=== PATIENT | male | born 1945 | race Caucasian/White ===

== ENCOUNTER → 2017-10-23 | Day surgery (SDC) | payer MEDICARE ==
[~2017-10-23] MED LIST: ALLOPURINOL300 MG PO; APRISO0.375 GM PO; ASPIRIN81 MG PO; CETIRIZINE HCL10 MG PO; COQ-1030 MG; FENTANYL CITRATE/PF 100MCG/2 ML INJ ONE; FEXOFENADINE H180 MG PO; FINASTERIDE5 MG PO; FLUTICASONE PRO16 GM; GLIPIZIDE ER5 MG PO; HYDROCHLOROTHIA25 MG PO; KLOR-CON 1010 MEQ PO; LANTUS100 UNITS/ SQ; LIALDA1.2 GM; LOSARTAN POTAS100 MG PO; LOVASTATIN20 MG PO; METOPROLOL TART25 MG PO; MIDAZOLAM HCL 2 MG/2 ML VIAL ONE; MINOXIDIL2.5 MG PO; MULTIVITAMINS1 EAC7; NORVASC5 MG PO; OMEGA-31000 MG; OR PHACO EYE KIT ONE; PLAVIX75 MG PO; PREOP PHACO EYE KIT ONE; TAMSULOSIN HCL0.4 MG PO
== END | disposition home or self-care (01) ==
LOC: OR 12:03
PROVIDERS: ATTEND Ophthalmology
DX: H25.12 Age-related nuclear cataract, left eye (principal); E11.9 Type 2 diabetes mellitus without complications; I25.10 Atherosclerotic heart disease of native coronary artery without angina pectoris; I10 Essential (primary) hypertension; M10.9 Gout, unspecified; E78.5 Hyperlipidemia, unspecified; G47.33 Obstructive sleep apnea (adult) (pediatric); K21.9 Gastro-esophageal reflux disease without esophagitis; N20.0 Calculus of kidney; Z79.4 Long term (current) use of insulin; Z79.82 Long term (current) use of aspirin; Z95.5 Presence of coronary angioplasty implant and graft; Z86.73 Personal history of transient ischemic attack (TIA), and cerebral infarction without residual deficits; Z87.891 Personal history of nicotine dependence
CPT/HCPCS: 36415; 66984; 82948; J2250; V2632

== ENCOUNTER 2018-08-21 11:28 | Outpatient (RCR) | payer MEDICARE ==
[~2018-08-21 11:28] MED LIST changes: +COLLAGENASE OINTMENT 30 GM TUBE ONE; -FENTANYL CITRATE/PF 100MCG/2 ML INJ ONE; +LIDOCAINE/PRILOCAINE 2.5-2.5% KIT ONE; -MIDAZOLAM HCL 2 MG/2 ML VIAL ONE; +MUPIROCIN 2% OINT 22 GM TUBE ONE; -OR PHACO EYE KIT ONE; -PREOP PHACO EYE KIT ONE
[2018-08-21] MEDS ORDERED: COLLAGENASE OINTMENT 30 GM TUBE ONE (16:39)
[2018-08-21] MEDS ORDERED: LIDOCAINE/PRILOCAINE 2.5-2.5% KIT ONE (16:39)
[2018-08-21] MEDS ORDERED: MUPIROCIN 2% OINT 22 GM TUBE ONE (16:39)
[2018-09-04] MEDS ORDERED: TAMSULOSIN HCL0.4 MG PO (16:06)
[2018-09-04] MEDS ORDERED: NAPROXEN250 MG PO (16:06)
[2018-09-04] MEDS ORDERED: ULTRAM50 MG PO (16:07)
[2018-09-04] MEDS ORDERED: CLINDAMYCIN HC150 MG PO (16:07)
[2018-09-06] MEDS ORDERED: TYLENOL #4 PO (05:34)
== END 2018-09-02 ==
LOC: WCC 11:28
PROVIDERS: ATTEND Family Medicine
DX: E11.8 Type 2 diabetes mellitus with unspecified complications (principal); S81.801A Unspecified open wound, right lower leg, initial encounter; I63.30 Cerebral infarction due to thrombosis of unspecified cerebral artery; I87.2 Venous insufficiency (chronic) (peripheral); M10.9 Gout, unspecified; I10 Essential (primary) hypertension; K51.019 Ulcerative (chronic) pancolitis with unspecified complications; E78.5 Hyperlipidemia, unspecified; I25.84 Coronary atherosclerosis due to calcified coronary lesion; W45.8XXA Other foreign body or object entering through skin, initial encounter
CPT/HCPCS: 36415; 82948; 87071; 87075; 87205

== ENCOUNTER → 2018-09-06 | Day surgery (SDC) | payer MEDICARE ==
[2018-09-04 16:25] LABS: BASOPHILS % 0.6 % (0.0-1.0); EOSINOPHILS # (AUTO) 0.2 (0.0-0.4); EOSINOPHILS % 2.6 % (0.0-6.0); HEMATOCRIT 44.5 % (38.2-49.6); HEMOGLOBIN 15.2 g/dL (14.0-18.0); LYMPHOCYTES # (AUTO) 1.6 (1.0-3.2); LYMPHOCYTES % 23.1 % (18.0-39.1); MEAN CORPUSCULAR HEMOGLOBIN 30.3 pg (28-32); MEAN CORPUSCULAR HGB CONC 34.2 g/dL (31-35); MEAN CORPUSCULAR VOLUME 88.6 fL (81-99); MONOCYTES # (AUTO) 0.7 (0.2-0.8); MONOCYTES % 10.4 % (4.4-11.3); NEUTROPHILS # (AUTO) 4.3 (2.1-6.9); PLATELET COUNT 204 x10e3/uL (140-360); RED BLOOD COUNT 5.02 x10e6/uL (4.3-5.7); RED CELL DISTRIBUTION WIDTH 13.4 % (11.7-14.4)
--- NOTE | 2018-09-04 16:28 | Diagnostic Imaging Report ---
EXAMINATION: CHEST 2 VIEWS INDICATION: ^PREOP COMPARISON: None FINDINGS: PA and lateral views TUBES and LINES: None. LUNGS: Low lung volumes. Mild left basilar hazy opacification. PLEURA: No pleural effusion or pneumothorax. HEART AND MEDIASTINUM: The cardiomediastinal silhouette is unremarkable. BONES AND SOFT TISSUES: No acute osseous lesion. Soft tissues are unremarkable. UPPER ABDOMEN: No free air under the diaphragm. IMPRESSION: Mild left basilar hazy opacification, likely subsegmental atelectasis. Signed by: Dr. Eddy Xie MD on 09/04/2018 4:25 PM
[2018-09-04 16:40] LABS: ANION GAP 12.4 mmol/L (8-16); BLOOD UREA NITROGEN 21 mg/dL (7-26); BUN/CREATININE RATIO 23 (6-25); CALCIUM 9.4 mg/dL (8.4-10.2); CARBON DIOXIDE 31 mmol/L (22-29); CHLORIDE 100 mmol/L (98-107); CREATININE, SERUM 0.93 mg/dL (0.72-1.25); EST GLOMERULAR FILTRATION RATE > 60 ML/MIN (60-); GLUCOSE 220 mg/dL (74-118); POTASSIUM 4.4 mmol/L (3.5-5.1); SODIUM 139 mmol/L (136-145)
[~2018-09-06] MED LIST changes: +BACITRACIN 50,000 UNIT VIAL ONE; +BUPIVACAINE HCL 0.5% 10ML MPF VIAL INJ ONE; +CLINDAMYCIN HC150 MG PO; +CLINDAMYCIN PHOS 900MG/ 50ML 50 ML IV ONE; -COLLAGENASE OINTMENT 30 GM TUBE ONE; +DEXAMETHASONE SOD PHOS INJ 4 MG/ML VIAL ONE; +FENTANYL CITRATE/PF 100MCG/2 ML INJ ONE; +KETOROLAC TROMETHAMINE 30 MG/ML VIAL ONE; +LIDOCAINE HCL 2% LOCAL INJ 5 ML SDV VIAL INJ ONE; -LIDOCAINE/PRILOCAINE 2.5-2.5% KIT ONE; -MUPIROCIN 2% OINT 22 GM TUBE ONE; +NAPROXEN250 MG PO; +ONDANSETRON HCL INJ 2 MG/ML VIAL ONE; +PROPOFOL IV EMULSION 10 MG/ML 20 ML VIAL ONE; +SEVOFLURANE INHAL SOLN 250 ML PEN BTL ONE; +SILVER SULFADIAZINE 50GM CREAM TOP ONE; +SUCCINYLCHOLINE 200 MG/10 ML SYR ONE; +TYLENOL #4 PO; +ULTRAM50 MG PO
--- OUTSIDE RECORDS SUMMARY | 2018-09-06 05:15 | XMS REPORT | Summary of Care ---
Author Author [facility] Organization [facility] Address Unknown Phone Unavailable Encounter HQ Peter_mari(FIN) [id number] Date(s): 11/20/16 - 11/20/16 [facility] [address] [place] [address]- [phone] Discharge Disposition: Home or Self Care Attending Physician: Courtney Simpson MD Referring Physician: Courtney Simpson MD Vital Signs No data available for this section Problem List No data available for this section Allergies, Adverse Reactions, Alerts Substance Reaction Severity Status atorvastatin Active pioglitazone Active rosuvastatin Active Medications No data available for this section Results No data available for this section Immunizations No data available for this section Procedures Procedure Date Related Diagnosis Body Site Stent placement Social History Social History Type Response Smoking Status Former smoker; Type: Cigarettes; Exposure to Tobacco Smoke None; Cigarette Smoking Last 365 Days No; Reg Smoking Cessation Counseling No Assessment and Plan No data available for this section
--- OUTSIDE RECORDS SUMMARY | 2018-09-06 05:15 | XMS REPORT | Summary of Care ---
Author Author [facility] Organization [facility] Address Unknown Phone Unavailable Encounter TUNED Crawley(FRANCISCO) [id number] Date(s): 10/24/16 - 10/24/16 [facility] [address] [place] [address]- [phone] Discharge Disposition: Home or Self Care Attending Physician: Daniel Vila MD Referring Physician: Daniel Vila MD Vital Signs No data available for this section Problem List No data available for this section Allergies, Adverse Reactions, Alerts Substance Reaction Severity Status atorvastatin Active pioglitazone Active rosuvastatin Active Medications Omnipaque 300 15 mL, Route: MISC, Drug Form: SOLN, ONCE, Start date: 10/24/16 10:01:00 TRUST ADMINISTRATOR, St op date: 10/24/16 10:01:00 TRUST ADMINISTRATOR Notes: (Same as:Omnipaque 300).WASTE: F/P - Black; E - Municipal Trash Bin Start Date: 10/24/16 Stop Date: 10/24/16 Status: Completed Results No data available for this section Immunizations No data available for this section Procedures No data available for this section Social History No data available for this section Assessment and Plan No data available for this section
--- OUTSIDE RECORDS SUMMARY | 2018-09-06 05:15 | XMS REPORT | Continuity of Care Document ---
Author Author [facility] Interface Address Unknown Phone Unavailable Problems Problem Status Onset Date Classification Date Reported Comments Source UNK Active 12/05/2016 [facility] LYMPHOMA Active 12/02/2016 [facility] DX; M81.0=AGE-RELATED OSTEOPOROSIS WITHO Active 11/16/2016 [facility] M47.26 Active 10/16/2016 [facility] CAD (<span ID="[id number]">Confirmed</span>) Resolved Problem 03/09/2018 [facility] Ulcerative colitis Active Problem 03/09/2018 [facility] Diabetes Active Problem 03/09/2018 [facility] Gout Resolved Problem 03/09/2018 [facility] Hypertension Active Problem 03/09/2018 [facility] Lymphoma Active Problem 03/09/2018 [facility] BPH (<span ID="[id number]">Confirmed</span>) Active Problem 03/09/2018 [facility] Sleep apnea Active Problem 03/09/2018 [facility] TIA (<span ID="[id number]">Confirmed</span>) Resolved Problem 03/09/2018 [facility] 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, lumbar region 12/23/2016 [facility] OTHER SPONDYLOSIS WITH RADICULOPATHY, LORENA Active [facility] AGE-RELATED OSTEOPOROSIS W/O CURRENT PAT Active [facility] SPONDYLOSIS W/O MYELOPATHY OR RADICULOPA Active [facility] RADICULOPATHY, LUMBAR REGION Active [facility] Medications Medication Details Route Status Patient Instructions Ordering Provider Order Date Source Dulcolax Laxative 10 mg, 2 tab, Route: PO, Drug form: ECTAB, Daily, Dosing Weight 97.864, kg, Start date: 12/20/16 9:00:00 CDT, Duration: 30 day, Stop date: 01/18/17 9:00:00 CDTNotes: (Same As: Dulcolax, Correctol) (Do Not Crush) "Do Not Crush" Inactive 12/20/2016 [facility] Lactulose 667 MG/ML Oral Solution 20 gm, 30 ml, Route: PO, Drug form: SYRP, ONCE, Dosing Weight 97.864, kg, Start date: 12/19/16 13:00:00 CDT, Stop date: 12/19/16 13:00:00 CDTNotes: (Same as:Chronulac) Inactive 12/19/2016 [facility] Keflex 500 mg, 2 cap, Route: PO, Drug form: CAP, [id number], Dosing Weight 97.864, kg, Start date: 12/18/16 8:00:00 CDT, Duration: 14 day, Stop date: 12/31/16 20:00:00 CDTNotes: Take on empty stomach. (Same As: Keflex) No Longer Active 12/18/2016 [facility] hydrocortisone acetate 25 MG Rectal Suppository [Anusol HC] 25 mg, 1 supp, Route: ME, BID, Drug form: SUPP, Start date: 12/17/16 17:00:00 CDT, Duration: 30 day, Stop date: 01/16/17 9:00:00 CDTNotes: (Same as: Anusol- HC, Hemorrhoidal HC) No Longer Active 12/17/2016 [facility] Metformin 500 mg, PO, Dinner, 0 Refill(s) Active 12/17/2016 [facility] Lialda 2.4 gm, Route: PO, Drug form: ECTAB, Daily, Dosing Weight 97.864, kg, Start date: 12/17/16 9:00:00 CDT, Duration: 30 day, Stop date: 01/15/17 9:00:00 CDT No Longer Active 12/17/2016 [facility] RN Please bring home med FLUTICASONE & LIALDA to Pharmacy RN Please bring home med FLUTICASONE & LIALDA to Pharmacy, 1, Drug form: MISC, Route: MISC, TID, 12/16/16 20:00:00 CDT, Duration: 30 day, Stop date: 01/15/17 15:00:00 CDT No Longer Active 12/17/2016 [facility] magnesium citrate 58.2 MG/ML Oral Solution 150 ml, Route: PO, Drug Form: LIQ, Dosing Weight 97.864, kg, ONCE, Start date: 12/16/16 14:50:00 CDT, Stop date: 12/16/16 14:50:00 CDTNotes: (Same as: Citrate of Magnesia) Concentration: 1.745 gm / 30 mL Inactive 12/16/2016 [facility] Citrate of Magnesia 300 ml, Route: PO, Drug Form: LIQ, Dosing Weight 97.869, kg, ONCE, PRN Constipation, Start date: 12/15/16 11:14:00 CDTNotes: (Same as: Citrate of Magnesia) Concentration: 1.745 gm / 30 mL Inactive 12/15/2016 [facility] Acetaminophen 300 MG / Codeine Phosphate 60 MG Oral Tablet [Tylenol with Codeine #4] 1 tab, Route: PO, Drug Form: TAB, Dosing Weight 97.864, kg, Q4H, PRN Pain Score 4-6, Start date: 12/15/16 10:35:00 CDT, Duration: 30 day, Stop date: 01/14/17 10:34:00 CDT, Pain Score 4-7Notes: Do not exceed 4gm/day of acetaminophen. (Same as: Tylenol with Codeine # 4) No Longer Active 12/15/2016 [facility] tramadol hydrochloride 50 MG Oral Tablet 50 mg, 1 tab, Route: PO, Drug form: TAB, Q6H, Dosing Weight 97.864, kg, PRN Pain Score 1-3, Start date: 12/15/16 10:31:00 CDT, Duration: 30 day, Stop date: 01/14/17 10:30:00 CDTNotes: Not to exceed 400mg/day. (Same As: Ultram) No Longer Active 12/15/2016 [facility] Morphine 2 mg, 1 mL, Route: IVP, Drug form: INJ, Q6H, Dosing Weight 97.864, kg, PRN Pain Score 7-10, Start date: 12/15/16 10:31:00 CDT, Duration: 30 day, Stop date: 01/14/17 10:30:00 CDTNotes: (Same as:MORPhine Sulfate) No Longer Active 12/15/2016 [facility] Albuterol 0.833 MG/ML / Ipratropium [place] 0.167 MG/ML Inhalant Solution [DuoNeb] 3 ml, Route: NEB, Drug Form: SOLN, Dosing Weight 97.864, kg, PRN, PRN Respiratory Protocol, Start date: 12/15/16 10:30:00 CDT, Duration: 30 day, Stop date: 01/14/17 10:29:00 CDTNotes: (Same as: Duoneb) No Longer Active 12/15/2016 [facility] Morphine 15 mg, 1 tab, Route: PO, Drug form: TAB, Q4H, Dosing Weight 97.864, kg, PRN Other -See Comment, Start date: 12/14/16 13:16:00 CDT, Duration: 30 day, Stop date: 01/13/17 13:15:00 CDT, Pain Score 4-8Notes: (Same as:MORPhine Sulfate) No Longer Active 12/14/2016 [facility] Morphine 4 mg, 1 mL, Route: IVP, Drug form: SOLN, Q4H, Dosing Weight 97.864, kg, PRN Pain Score 6-10, Start date: 12/14/16 13:15:00 CDT, Duration: 30 day, Stop date: 01/13/17 13:14:00 CDTNotes: (Same as:MORPhine Sulfate) No Longer Active 12/14/2016 [facility] cyclobenzaprine 10 mg, 1 tab, Route: PO, Drug form: TAB, TID, Dosing Weight 97.864, kg, PRN Spasm, Start date: 12/14/16 12:59:00 CDT, Duration: 30 day, Stop date: 01/13/17 12:58:00 CDTNotes: (Same As: Flexeril) No Longer Active 12/14/2016 [facility] Acetaminophen 300 MG / Codeine Phosphate 30 MG Oral Tablet 1 tab, Route: PO, Dosing Weight 97.864, kg, Q4H, PRN Pain Score 4-6, Start date: 12/14/16 12:58:00 CDT, Duration: 30 day, Stop date: 01/13/17 12:57:00 CDT Inactive 12/14/2016 [facility] Acetaminophen 325 MG / Hydrocodone Bitartrate 10 MG Oral Tablet [[place] 10/325] 2 tab, Route: PO, Drug Form: TAB, Dosing Weight 97.864, kg, Q6H, PRN Pain Score 7-10, Start date: 12/14/16 12:38:00 CDT, Duration: 30 day, Stop date: 01/13/17 12:37:00 CDTNotes: Do not exceed 4gm/day of acetaminophen. (Same as: [place] 325/10) Inactive 12/14/2016 [facility] Morphine 4 mg, 1 mL, Route: IVP, Drug form: SOLN, Q3H, Dosing Weight 97.864, kg, PRN Pain Score 6-10, Start date: 12/14/16 12:37:00 CDT, Duration: 30 day, Stop date: 01/13/17 12:36:00 CDTNotes: (Same as:MORPhine Sulfate) Inactive 12/14/2016 [facility] Dextrose 50% Syringe 25 gm, 50 mL, Route: IVP, Drug Form: INJ, Dosing Weight 97.864, kg, PRN, PRN Blood Glucose Results, Start date: 12/14/16 11:46:00 CDT, Duration: 30 day, Stop date: 01/13/17 11:45:00 CDT No Longer Active 12/14/2016 [facility] Glucagon 1 mg, Route: IM, Drug form: PDR/INJ, PRN, Dosing Weight 97.864, kg, PRN Blood Glucose Results, Start date: 12/14/16 11:46:00 CDT, Duration: 30 day, Stop date: 01/13/17 11:45:00 CDT No Longer Active 12/14/2016 [facility] Insulin, Aspart, Human 10 unit, 0.1 mL, Route: SUB-Q, Drug form: SOLN, TID-Before Meals, Dosing Weight 97.864, kg, PRN Blood Glucose Results, Start date: 12/14/16 11:46:00 CDT, Duration: 30 day, Stop date: 01/13/17 11:45:00 CDTNotes: Roll in palms of hands gently; Do not shake vigorously. (Same as: NovoLOG) "single patient use only" WASTE: F/P - Black; E - Municipal Trash Bin Stable for 28 days at room temperature. Expires in days from Date No Longer Active 12/14/2016 [facility] Senokot 17.2 mg, 2 tab, Route: PO, Drug Form: TAB, Dosing Weight 97.869, kg, Daily, Start date: 12/14/16 9:00:00 CDT, Duration: 30 day, Stop date: 01/12/17 9:00:00 CDTNotes: (Same as: Senokot) No Longer Active 12/14/2016 [facility] Docusate Sodium 100 MG Oral Capsule [Colace] 100 mg, 1 cap, Route: PO, Drug form: CAP, BID, Dosing Weight 97.869, kg, Start date: 12/14/16 9:00:00 CDT, Duration: 30 day, Stop date: 01/12/17 17:00:00 CDTNotes: (Same as: Colace) (Do Not Crush) No Longer Active 12/14/2016 [facility] Fluticasone propionate 0.05 MG/ACTUAT Dry Powder Inhaler 50 microgram, Route: INHALATION, Drug Form: PWDR, Dosing Weight 97.869, kg, Daily, Start date: 12/14/16 9:00:00 CDT, Duration: 30 day, Stop date: 01/12/17 9:00:00 CDT No Longer Active 12/14/2016 [facility] Finasteride 5 mg, 1 tab, Route: PO, Drug form: TAB, Bedtime, Dosing Weight 97.869, kg, Start date: 12/14/16 9:00:00 CDT, Stop date: 01/12/17 21:00:00 CDTNotes: blets No Longer Active 12/14/2016 [facility] 24 HR Metoprolol Tartrate 25 MG Extended Release Tablet [Toprol] 25 mg, 1 tab, Route: PO, Drug form: ERTAB, Daily, Start date: 12/14/16 9:00:00 CDT, Duration: 30 day, Stop date: 01/12/17 9:00:00 CDTNotes: (Same as: Toprol XL) Do Not Crush No Longer Active 12/14/2016 [facility] Flomax 0.4 mg, 1 cap, Route: PO, Drug form: CAP, Daily, Dosing Weight 97.869, kg, Start date: 12/14/16 9:00:00 CDT, Duration: 30 day, Stop date: 01/12/17 9:00:00 CDTNotes: (Same As: Flomax) "Do Not Crush" No Longer Active 12/14/2016 [facility] 24 HR Nifedipine 90 MG Extended Release Tablet 90 mg, 1 tab, Route: PO, Drug form: ERTAB, Daily, Dosing Weight 97.869, kg, Start date: 12/14/16 9:00:00 CDT, Duration: 30 day, Stop date: 01/12/17 9:00:00 CDTNotes: (Same as: Adalat CC,Procardia XL) "Do Not Crush" "Avoid grapefruit and grapefruit juice" No Longer Active 12/14/2016 [facility] Losartan 100 mg, 2 tab, Route: PO, Drug form: TAB, Bedtime, Dosing Weight 97.869, kg, Start date: 12/14/16 9:00:00 CDT, Stop date: 01/12/17 21:00:00 CDTNotes: (Same as: Cozaar) No Longer Active 12/14/2016 [facility] gabapentin 100 MG Oral Capsule [Neurontin] 100 mg, 1 cap, Route: PO, Drug form: CAP, TID, Dosing Weight 97.869, kg, Start date: 12/14/16 9:00:00 CDT, Duration: 30 day, Stop date: 01/12/17 17:00:00 CDTNotes: (Same as: Neurontin) No Longer Active 12/14/2016 [facility] heparin sodium, porcine 2500 UNT/ML Injectable Solution 5,000 unit, 1 mL, Route: SUB-Q, Drug form: INJ, Q12H, Dosing Weight 97.869, kg, Start date: 12/14/16 8:00:00 CDT, Duration: 30 day, Stop date: 01/12/17 20:00:00 CDTNotes: porcine heparin No Longer Active 12/14/2016 [facility] Glipizide 10 MG Oral Tablet 10 mg, 1 tab, Route: PO, Drug form: TAB, Before Breakfast, Dosing Weight 97.869, kg, Start date: 12/14/16 7:30:00 CDT, Duration: 30 day, Stop date: 01/12/17 7:30:00 CDTNotes: (Same as: Glucotrol) 30 min before meals. No Longer Active 12/14/2016 [facility] Cefazolin 1 gm, 100 mL, Route: IVPB, Drug form: INJ, ABXQ8H, Dosing Weight 97.869, kg, Start date: 12/14/16 3:00:00 CDT, Duration: 3 doses or times, Stop date: 12/14/16 19:00:00 CDT Inactive 12/14/2016 [facility] Morphine 1 mg, 0.5 mL, Route: IVP, Drug form: INJ, Q2H, Dosing Weight 97.869, kg, PRN Pain Score 4-6, Start date: 12/13/16 22:44:00 CDT, Duration: 30 day, Stop date: 01/12/17 22:43:00 CDTNotes: (Same as:MORPhine Sulfate) No Longer Active 12/14/2016 [facility] Morphine 2 mg, 1 mL, Route: IVP, Drug form: INJ, Q2H, Dosing Weight 97.869, kg, PRN Pain Score 7-10, Start date: 12/13/16 22:43:00 CDT, Duration: 30 day, Stop date: 01/12/17 22:42:00 CDTNotes: (Same as:MORPhine Sulfate) No Longer Active 12/14/2016 [facility] insulin detemir 22 unit, 0.22 mL, Route: SUB-Q, Drug form: SOLN, Bedtime, Start date: 12/13/16 22:00:00 CDT, Duration: 30 day, Stop date: 01/12/17 21:00:00 CDTNotes: Same as Levemir Do not hold insulin without contacti prescriber WASTE: F/P - Black; E - Municipal Trash Bin "single patient use only" No Longer Active 12/14/2016 [facility] Famotidine 20 MG Oral Tablet [Pepcid] 20 mg, 1 tab, Route: PO, Drug form: TAB, Q12H, Dosing Weight 97.869, kg, Start date: 12/13/16 21:00:00 CDT, Duration: 30 day, Stop date: 01/12/17 9:00:00 CDTNotes: (Same as: Pepcid) No Longer Active 12/14/2016 [facility] Insulin Glargine 100 UNT/ML Injectable Solution [Lantus] 22 unit, Route: SUB-Q, Drug form: SOLN, Bedtime, Dosing Weight 97.869, kg, Start date: 12/13/16 21:00:00 CDT, Duration: 30 day, Stop date: 01/11/17 21:00:00 CDT Inactive 12/14/2016 [facility] glycopyrrolate (ANES) Route: IV, Drug form: INJ, ONCE, Stop date: 12/13/16 20:42:00 CDT Inactive 12/14/2016 [facility] neostigmine (ANES) Route: IV, Drug form: INJ, ONCE, Stop date: 12/13/16 20:42:00 CDT Inactive 12/14/2016 [facility] magnesium citrate 300 ml, Route: PO, Drug Form: LIQ, Dosing Weight 97.869, kg, ONCE, PRN Constipation, Start date: 12/13/16 20:33:00 CDTNotes: (Same as: Citrate of Magnesia) Concentration: 1.745 gm / 30 mL No Longer Active 12/14/2016 [facility] Zofran 4 mg, 2 mL, Route: IV, Drug form: INJ, Q8H, Dosing Weight 97.869, kg, PRN Nausea, Start date: 12/13/16 20:33:00 CDT, Duration: 30 day, Stop date: 01/12/17 20:32:00 CDTNotes: (Same as: Zofran) MEDICATION WASTE Product Size: 4 mg Product Wasted: ___ mg No Longer Active 12/14/2016 [facility] Acetaminophen 325 MG / Hydrocodone Bitartrate 5 MG Oral Tablet 2 tab, Route: PO, Drug Form: TAB, Dosing Weight 97.869, kg, Q4H, PRN Pain Score 7-10, Start date: 12/13/16 20:33:00 CDT, Stop date: 01/12/17 20:32:00 CDTNotes: (Same as: [place] 325/5) Do not exceed 4gm/day of acetaminophen. No Longer Active 12/14/2016 [facility] Sodium Chloride 0.154 MEQ/ML Injectable Solution 1,000 mL, Rate: 75 ml/hr, Infuse over: 13.3 hr, Route: IV, Dosing Weight 97.869 kg, Total Volume: 1,000, Start date: 12/13/16 20:33:00 CDT, Duration: 30 day, Stop date: 01/12/17 20:32:00 CDT No Longer Active 12/14/2016 [facility] Tylenol 650 mg, 2 tab, Route: PO, Drug form: TAB, Q4H, Dosing Weight 97.869, kg, PRN Pain 1-3/Temp > 100.4 F, Start date: 12/13/16 20:33:00 CDT, Duration: 30 day, Stop date: 01/12/17 20:32:00 CDTNotes: Do not exceed 4 gm/day. (Same as: Tylenol) No Longer Active 12/14/2016 [facility] Dilaudid 1 mg, 1 mL, Route: IV, Drug form: INJ, Q3H, Dosing Weight 97.869, kg, PRN Pain Score 7-10, Start date: 12/13/16 20:33:00 CDT, Duration: 30 day, Stop date: 01/12/17 20:32:00 CDT Inactive 12/14/2016 [facility] ondansetron (ANES) Route: IV, Drug form: INJ, ONCE, Stop date: 12/13/16 20:20:00 CDT Inactive 12/14/2016 [facility] ceFAZolin (ANES) Route: IV, Drug form: INJ, ONCE, Stop date: 12/13/16 19:40:00 CDT Inactive 12/14/2016 [facility] acetaminophen (ANES) (ANES) Route: IV, Drug form: INJ, Start date: 12/13/16 17:20:00 CDT, Stop date: 12/13/16 18:20:00 CDT Inactive 12/13/2016 [facility] hydromorphone (ANES) Route: IV, Drug form: INJ, ONCE, Stop date: 12/13/16 17:15:00 CDT Inactive 12/13/2016 [facility] rocuronium (ANES) Route: IV, Drug form: INJ, ONCE, Stop date: 12/13/16 16:20:00 CDT Inactive 12/13/2016 [facility] ceFAZolin (ANES) (ANES) Route: IV, Drug form: INJ, Start date: 12/13/16 16:09:00 CDT, Stop date: 12/13/16 17:09:00 CDT Inactive 12/13/2016 [facility] fentaNYL (ANES) Route: IV, Drug form: INJ, ONCE, Stop date: 12/13/16 15:55:00 CDT Inactive 12/13/2016 [facility] phenylephrine (ANES) Route: IV, Drug form: INJ, ONCE, Stop date: 12/13/16 14:29:00 CDT Inactive 12/13/2016 [facility] lidocaine (ANES) Route: IV, Drug form: INJ, ONCE, Stop date: 12/13/16 14:04:00 CDT Inactive 12/13/2016 [facility] fentaNYL (ANES) Route: IV, Drug form: INJ, ONCE, Stop date: 12/13/16 14:04:00 CDT Inactive 12/13/2016 [facility] ceFAZolin (ANES) Route: IV, Drug form: INJ, ONCE, Stop date: 12/13/16 14:04:00 CDT Inactive 12/13/2016 [facility] rocuronium (ANES) Route: IV, Drug form: INJ, ONCE, Stop date: 12/13/16 14:04:00 CDT Inactive 12/13/2016 [facility] propofol (ANES) Route: IV, Drug form: INJ, ONCE, Stop date: 12/13/16 14:04:00 CDT Inactive 12/13/2016 [facility] midazolam (ANES) Route: IV, Drug form: SOLN, ONCE, Stop date: 12/13/16 13:49:00 CDT Inactive 12/13/2016 [facility] ePHEDrine (ANES) Route: IV, Drug form: INJ, ONCE, Stop date: 12/13/16 13:49:00 CDT Inactive 12/13/2016 [facility] sodium chloride 0.9% 1000 ml INJ (ANES) Route: IV, Total Volume: 1,000, Start date: 12/13/16 12:48:00 CDT, Stop date: 12/13/16 13:48:00 CDT Inactive 12/13/2016 [facility] LR 1000 mL INJ (ANES) Route: IV, Total Volume: 1,000, Start date: 12/13/16 12:36:00 CDT, Stop date: 12/13/16 13:36:00 CDT Inactive 12/13/2016 [facility] Fentanyl 25 microgram, Route: IVP, ONCE, Dosing Weight 97.869, kg, Start date: 12/13/16 11:25:00 CDT, Stop date: 12/13/16 11:25:00 CDT Inactive 12/13/2016 [facility] Metformin PO, Daily, 0 Refill(s) No Longer Active 12/13/2016 [facility] Albuterol 0.833 MG/ML / Ipratropium [place] 0.167 MG/ML Inhalant Solution 3 mL, Route: NEB, Dosing Weight 97.869, kg, ONCE, STAT, Start date: 12/13/16 10:11:00 CDT, Stop date: 12/13/16 10:11:00 CDT Inactive 12/13/2016 [facility] Calcium Chloride 0.0014 MEQ/ML / Potassium Chloride 0.004 MEQ/ML / Sodium Chloride 0.103 MEQ/ML / Sodium Lactate 0.028 MEQ/ML Injectable Solution 1,000 mL, Rate: 25 ml/hr, Infuse over: 40 hr, Route: IV, Dosing Weight 97.869 kg, Total Volume: 1,000, Start date: 12/13/16 10:11:00 CDT, Duration: 30 day, Stop date: 01/12/17 10:10:00 CDT Inactive 12/13/2016 [facility] multivitamin Daily, 0 Refill(s) Active 12/07/2016 [facility] Fluticasone propionate 0.05 MG/ACTUAT Dry Powder Inhaler 50 microgram=, INHALATION, Daily, 0 Refill(s) Active 12/07/2016 [facility] Naproxen 500 mg, PO, PRN Pain, # 30 tab, 0 Refill(s) No Longer Active 12/07/2016 [facility] Omnipaque 300 15 mL, Route: MISC, Drug Form: SOLN, ONCE, Start date: 10/24/16 10:01:00 [employer], Stop date: 10/24/16 10:01:00 CSTNotes: (Same as:Omnipaque 300). WASTE: F/P - Black; E - Municipal Trash Bin Inactive 10/24/2016 [facility] Allergies, Adverse Reactions, Alerts Substance Category Reaction Severity Reaction type Status Date Reported Comments Source atorvastatin Assertion Drug allergy Active [facility] pioglitazone Assertion Drug allergy Active [facility] rosuvastatin Assertion Drug allergy Active [facility] Immunizations Immunization Date Given Site Status Last Updated Comments Source Results Order Name Results Value Reference Range Date Interpretation Comments Source Chest 2 views DX Chest 2 views DX Study: Frontal chest x-ray compared to 09/28/2010 History: Dyspnea Comments: The trachea is midline. The cardiomediastinal silhouette is normal in size. Right lung is clear. No pneumothorax. Obscured left costophrenic angle may be due to small effusion. Impression: Obscured left costophrenic angle may be due to small effusion. 12/15/2016 - - Read by: Stephanie Flores MD Dictated Date/time: 12/15/16 19:11 Electronically Signed by: Stephanie Flores MD 12/16/16 02:09 FINAL REPORT [facility] BLOOD [facility] RESULTS Antibody Scrn Negative (12/07/16 12:21 PM) 12/07/2016 [facility] BLOOD [facility] RESULTS ABO/Rh O POS 12/07/2016 [facility] ELECTROLYTES AGAP 8.8 meq/L 10.0 - 20.0 12/07/2016 [facility] ELECTROLYTES B/C Ratio 23 6 - 25 12/07/2016 [facility] ELECTROLYTES A/G Ratio 1.1 0.7 - 1.6 12/07/2016 [facility] ELECTROLYTES Globulin 3.5 g/dL 2.7 - 4.2 12/07/2016 [facility] ELECTROLYTES eGFR 85 mL/min/1.73m2 12/07/2016 Result Comment: The eGFR is calculated using the CKD-EPI formula. In most young, healthy individuals the eGFR will be >90 mL/min/1.73m2. The eGFR declines with age. An eGFR of 60-89 may be normal in some populations, particularly the elderly, for whom the CKD-EPI formula has not been extensively validated. Use of the eGFR is not recommended in the following populations: Individuals with unstable creatinine concentrations, including patients and those with serious co-morbid conditions. Patients with extremes in muscle mass or diet. The data above are obtained from the National Kidney Disease Education Program (NKDEP) which additionally recommends that when the eGFR is used in patients with extremes of body mass index for purposes of drug dosing, the eGFR should be multiplied by the estimated BMI. [facility] ELECTROLYTES AST 14 unit/L 0 - 37 12/07/2016 [facility] ELECTROLYTES Alk Phos 116 unit/L 39 - 136 12/07/2016 [facility] ELECTROLYTES Bili Total 0.5 mg/dL 0.2 - 1.3 12/07/2016 [facility] ELECTROLYTES CO2 33 meq/L 24 - 32 12/07/2016 [facility] ELECTROLYTES Total Protein 7.4 g/dL 6.4 - 8.4 12/07/2016 [facility] ELECTROLYTES Calcium Lvl 8.9 mg/dL 8.5 - 10.5 12/07/2016 [facility] ELECTROLYTES ALT 22 unit/L 0 - 65 12/07/2016 [facility] ELECTROLYTES Albumin Lvl 3.9 g/dL 3.5 - 5.0 12/07/2016 [facility] ELECTROLYTES Creatinine Lvl 0.91 mg/dL 0.50 - 1.40 12/07/2016 [facility] ELECTROLYTES Sodium Lvl 140 meq/L 135 - 145 12/07/2016 [facility] ELECTROLYTES Potassium Lvl 3.8 meq/L 3.5 - 5.1 12/07/2016 [facility] ELECTROLYTES Chloride Lvl 102 meq/L 95 - 109 12/07/2016 [facility] ELECTROLYTES Glucose Lvl 116 mg/dL 70 - 99 12/07/2016 [facility] ELECTROLYTES BUN 21 mg/dL 7 - 22 12/07/2016 [facility] HEMATOLOGY Lymphocytes 25.0 % 20.0 - 40.0 12/07/2016 [facility] HEMATOLOGY Segs 60.8 % 45.0 - 75.0 12/07/2016 [facility] HEMATOLOGY Monocytes # 0.6 K/CMM 0.0 - 0.8 12/07/2016 [facility] HEMATOLOGY Lymphocytes # 1.7 K/CMM 1.0 - 5.5 12/07/2016 [facility] HEMATOLOGY Eosinophils # 0.3 K/CMM 0.0 - 0.5 12/07/2016 [facility] HEMATOLOGY Basophils 0.6 % 0.0 - 1.0 12/07/2016 [facility] HEMATOLOGY Monocytes 9.1 % 2.0 - 12.0 12/07/2016 [facility] HEMATOLOGY Eosinophils 4.5 % 0.0 - 4.0 12/07/2016 [facility] HEMATOLOGY Segs-Bands # 4.1 K/CMM 1.5 - 8.1 12/07/2016 [facility] HEMATOLOGY INR 0.95 0.85 - 1.17 12/07/2016 [facility] HEMATOLOGY PT 12.9 s 12.0 - 14.7 12/07/2016 [facility] PTT 28.6 s 22.9 - 35.8 12/07/2016 [facility] MPV 10.0 fL 7.4 - 10.4 12/07/2016 [facility] Platelet 221 K/CMM 133 - 450 12/07/2016 [facility] MCH 29.8 pg 27.0 - 31.0 12/07/2016 [facility] RDW 14.4 % 11.5 - 14.5 12/07/2016 [facility] MCV 88.2 fL 80.0 - 94.0 12/07/2016 [facility] MCHC 33.8 g/dL 32.0 - 36.0 12/07/2016 [facility] Hgb 14.1 g/dL 14.0 - 18.0 12/07/2016 [facility] Hct 41.8 % 42.0 - 54.0 12/07/2016 [facility] RBC 4.74 M/CMM 4.70 - 6.10 12/07/2016 [facility] WBC 6.7 K/CMM 3.7 - 10.4 12/07/2016 [facility] Bone Density Scan Bone Density Scan Patient Name: JOZEF JOHN : 1945; Age: 71 years y/o Male MR: [id number] Study: Bone Density Scan 11/20/2016 9:36 AM CDT Ordering Physician: Jozef Simpson MD Clinical Indication: OSTEOPOROSIS. Comparison: None FINDINGS: The axial lumbar bone mineral density is 125% of the expected age matched bone mass with a T-score 1.3. Axial lumbar average BMD is 1.236 g/cm2. The left femoral neck bone mineral density is 84% of the expected age matched bone mass with a T-score of -2.1. Left femoral neck BMD is 0.648 g/cm2. The total femoral BMD is 0.988 g/cm2. IMPRESSION: 1. Normal bone mineral density of the lumbar spine. 2. Osteopenia of the left femoral neck. The World Health Organization has established that OSTEOPOROSIS occurs at -2.5 or more standard deviations (SD) below peak bone mass. OSTEOPENIA (low bone mass) occurs at -1.0 standard deviations to -2.5 standard deviations below peak bone mass. SL: [id number] 11/20/2016 - - Read by: Toribio Garcia MD Dictated Date/time: 11/21/16 07:12 Electronically Signed by: Toribio Garcia MD 11/21/16 07:13 FINAL REPORT [facility] lumbar myelogram CT Spine lumbar myelogram CT EXAM: CT lumbar spine myelogram HISTORY: Lumbar spondylosis, radiculopathy; history of spinal surgery COMPARISON: Radiographs 10/24/2016 TECHNIQUE: Axial images with sagittal and coronal reformats performed following myelogram. DLP 617 FINDINGS: Five lumbar type vertebral bodies. Mild levoscoliosis centered at L3-L4. Generalized osteopenia. No compression fracture. Diffuse marginal osteophytes. The conus medullaris is normally positioned. T12-L1: No significant disc bulge, central canal or neuroforaminal stenosis. L1-L2: Small disc bulge with mild canal stenosis. Moderate neuroforaminal stenoses bilaterally. L2-L3: Degenerative disc disease with vacuum disc and mild disc space narrowing with disc protrusion, mild-moderate facet arthrosis and mild ligamentum flavum hypertrophy bilaterally with marked canal stenosis. Moderate-marked neuroforaminal stenosis on the right and moderate foraminal stenosis on the left. L3-L4: Bilateral laminectomies. Marked disc space narrowing. Grade 2 spondylolisthesis of L3 with associated pseudodisc bulge, moderate facet arthrosis and moderate-severe central canal stenosis. Moderate neuroforaminal stenoses bilaterally. Posterior marginal osteophyte on the left may abut or impinge the left L3 foraminal nerve root. L4-L5: Degenerative disc disease. Disc protrusion, moderate facet arthrosis and ligamentum flavum hypertrophy bilaterally with marked canal stenosis. Moderate neuroforaminal stenoses bilaterally. Posterior marginal osteophyte on the right may abut or impinge the right L4 foraminal nerve root. L5-S1: Degenerative disc disease. Small disc protrusion with mild canal stenosis. Marked neuroforaminal stenoses bilaterally with disc osteophyte complexes impinging the L5 foraminal nerve roots bilaterally. IMPRESSION: 1. Scoliosis and diffuse spondylosis lumbar spine. 2. Laminectomy L3-L4 with grade 2 spondylolisthesis of L3 with marked-severe disc space narrowing. Posterior marginal osteophyte may abut or impinge the left L3 foraminal nerve root. 3. Disc protrusions at L2-L3, L4-L5 and L5-S1 with marked canal stenoses at L2-L3 and L4-L5 and mild canal stenosis at L5-S1. Posterior marginal osteophytes may abut or impinge the L4 and L5 foraminal nerve roots as described. 4. Multilevel facet arthrosis and neuroforaminal stenoses. 13 10/24/2016 - - Read by: Jus Soria MD Dictated Date/time: 10/24/16 16:25 Electronically Signed by: Jus Soria MD 10/24/16 17:05 FINAL REPORT [facility] Spine lumbar flex/ext 2 view DX Spine lumbar flex/ext 2 view DX Spine lumbar flex/ext 2 view DX COMPARISON: None CLINICAL HISTORY: M47.26 Other spondylosis with radiculopathy, lumbar region; FINDINGS: 3 views of the lumbar spine, neutral, flexion and extension views are submitted for review. 5 nonrib-bearing lumbar-type vertebra are visualized. There is generalized osteopenia. There is anterior subluxation of L3 relative to L4 by approximately 14 mm. This does not change significantly on the flexion and extension views. Marked decrease in disc space height at L3-L4 level. There is endplate sclerosis and irregularity. Mild to moderate spondylosis is present throughout the lumbar spine. Bilateral facet arthrosis at L4-L5 and L5-S1 levels The SI joints demonstrate normal morphology. IMPRESSION: Stable grade 2 anterolisthesis at L3-L4 level. The anterolisthesis does not worsen on the flexion or extension views. Severe disc disease and endplate sclerosis and irregularity is noted at L3-L4 level. No evidence for compression fractures. SL: [id number] 10/24/2016 - - Read by: Trent Acosta MD Dictated Date/time: 10/24/16 14:36 Electronically Signed by: Trent Acosta MD 10/24/16 14:41 FINAL REPORT [facility] lumbar myelogram DX Spine lumbar myelogram DX EXAM: Lumbar myelogram HISTORY: Lumbar spondylosis and lower extremity radiculopathy PROCEDURE: Informed consent was obtained and time out procedure was performed. Lumbar puncture was performed under fluoroscopic guidance with a 20-gauge needle at the level of L3-L4 under the usual sterile conditions and local anesthesia. Approximately 12 mm of Omnipaque 180 instilled into the thecal sac. The patient tolerated the procedure well. FLUOROSCOPIC TIME: 56 seconds IMPRESSION: Lumbar puncture for CT myelogram of the lumbar spine. SL: [id number] 10/24/2016 - - Read by: Jus Soria MD Dictated Date/time: 10/24/16 16:23 Electronically Signed by: Jus Soria MD 10/24/16 16:25 FINAL REPORT [facility] Vital Signs Vital Sign Value Date Comments Source Systolic (mm Hg) 148 12/20/2016 [facility] Diastolic (mm Hg) 77 12/20/2016 [facility] Respitory Rate 17 12/20/2016 [facility] Heart Rate 67 12/20/2016 [facility] Temperature Oral (F) 98 F 12/20/2016 [facility] Temperature Oral (F) 98.1 F 12/20/2016 [facility] Respitory Rate 18 12/20/2016 [facility] Systolic (mm Hg) 127 12/20/2016 [facility] Diastolic (mm Hg) 70 12/20/2016 [facility] Heart Rate 74 12/20/2016 [facility] Respitory Rate 18 12/20/2016 [facility] Temperature Oral (F) 98.1 F 12/20/2016 [facility] Heart Rate 63 12/20/2016 [facility] Systolic (mm Hg) 144 12/20/2016 [facility] Diastolic (mm Hg) 85 12/20/2016 [facility] BMI Calculated 27.7 12/14/2016 [facility] Weight 97.864 12/14/2016 [facility] Height 187.96 cm 12/14/2016 [facility] BMI Calculated 27.7 12/07/2016 [facility] Height 187.96 cm 12/07/2016 [facility] Weight 97.869 12/07/2016 [facility] Encounters Location Location Details Encounter Type Encounter Number Reason For Visit Attending Provider ADM Date DC Date Status Source [facility] [id number] Daniel Vila 10/24/2016 10/25/2016 [facility] Outpatient [id number] JOZEF SIMPSON 11/14/2016 Active [facility] Outpatient [id number] Jozef Simpson 11/20/2016 11/21/2016 [facility] Outpatient [id number] JOZEF CARLTONH 12/05/2016 Active [facility] Inpatient [id number] Jimenez Fonseca 12/13/2016 12/20/2016 [facility] Outpatient [id number] JOZEF CARLTONH 12/15/2016 Active [facility] Out[facility] [id number] SERGIO CALVO 12/26/2016 Active [facility] Outpatient [id number] Mike Mercedes 12/28/2016 12/28/2016 [facility] Outpatient [id number] SERGIO ESTILL 02/02/2017 Active [facility] Outpatient [id number] SERGIO ESTILL 03/21/2017 Active [facility] Outpatient [id number] SERGIO ESTILL 06/15/2017 Active [facility] Phone Message [id number] 11/26/2017 11/28/2017 [facility] Phone Message [id number] 11/30/2017 12/02/2017 [facility] Outpatient [id number] SERGIO ESTILL 12/14/2017 Active [facility] Ambulatory Pre-Reg [id number] Mike Mago 12/14/2017 12/14/2017 [facility] Procedures Procedure Code Date Perfomer Comments Source Stent placement [id number] [id number]al [facility] [id number] [id number] [facility]ctomy [id number] [facility] Nasal septal operation [id number] [facility] Tonsil operation [id number] [facility]
--- OUTSIDE RECORDS SUMMARY | 2018-09-06 05:16 | XMS REPORT ---
Author Author [facility] Address Unknown Phone Unavailable Care Team Providers Care [employer] Worker Name Role Phone Cristobal HOSKINS Unavailable Unavailable Problems This patient has no known problems. Allergies, Adverse Reactions, Alerts This patient has no known allergies or adverse reactions. Medications This patient has no known medications. Results Test Description Test Time Test Comments Text Results Atomic Results Result Comments CHEST 2 VIEWS 2018-09-04 16:24:00 [facility] [address] [address] Patient Name: COURTNEY JOHN MR #: [id number] : 1945 Age/Sex: 72/M Req #: [id number] Adm Physician: Ordered by: Cristobal HOSKINS DPM Report #: [id number] Location: OR Room/Bed: Procedure: [id number] DX/CHEST 2 VIEWS Exam Date: 09/04/18 Exam Time: 1600 REPORT STATUS: Signed EXAMINATION: CHEST 2 VIEWS INDICATION: DC EOP COMPARISON: None FINDINGS: PA and lateral views TUBES and LINES: None. LUNGS: Low lung volumes. Mild left basilar hazy opacification. PLEURA: No pleural effusion or pneumothorax. HEART AND MEDIASTINUM: The cardiomediastinal silhouette is unremarkable. BONES AND SOFT TISSUES: No acute osseous lesion. Soft tissues are unremarkable. UPPER ABDOMEN: No free air under the diaphragm. IMPRESSION: Mild left basilar hazy opacification, likely subsegmental atelectasis. Signed by: Dr. Eddy Xie MD on 09/04/2018 4:25 PM Dictated By: EDDY XIE MD [id number] Transcribed By: JESUS on 09/04/18 1629 COPY TO: Cristobal HOSKINS DPM
--- OUTSIDE RECORDS SUMMARY | 2018-09-06 05:16 | XMS REPORT | Summary of Care ---
Author Author [facility] Organization [facility] Address Unknown Phone Unavailable Encounter HQ Cristino_mari(FIN) [id number] Date(s): 11/30/17 - 12/01/17 [facility] [address] [facility], [address] [phone] Vital Signs No data available for this section Problem List Condition Effective Dates Status Health Status Informant CAD (coronary artery Resolved disease)(Confirmed) Ulcerative Active colitis(Confirmed) Diabetes(Confirmed) Active Gout(Confirmed) Resolved Hypertension(Confirm Active ed) Lymphoma(Confirmed) Active BPH (benign Active prostatic hypertrophy)(Confirm ed) Sleep Active apnea(Confirmed) TIA (transient Resolved ischemic attack)(Confirmed) Allergies, Adverse Reactions, Alerts Substance Reaction Severity Status atorvastatin Active pioglitazone Active rosuvastatin Active Medications No data available for this section Results No data available for this section Immunizations No data available for this section Procedures Procedure Date Related Diagnosis Body Site Status Discectomy Completed Nasal septal operation Completed Stent placement Completed Tonsil operation Completed Social History Social History Type Response Substance Abuse Use: None. Alcohol Past Smoking Status Former smoker; Type: Cigarettes; Exposure to Tobacco Smoke None; Cigarette Smoking Last 365 Days No; Reg Smoking Cessation Counseling No entered on: 06/15/17 Assessment and Plan No data available for this section
--- OUTSIDE RECORDS SUMMARY | 2018-09-06 05:16 | XMS REPORT | Summary of Care ---
Author Author [facility] Organization [facility] Address Unknown Phone Unavailable Encounter HQ Cristino_mari(FIN) [id number] Date(s): 11/26/17 - 11/27/17 [facility] Spine [facility] [address] [facility] [address] [phone] Vital Signs No data available for this [...]
--- OUTSIDE RECORDS SUMMARY | 2018-09-06 05:16 | XMS REPORT | Summary of Care ---
Author Author [facility] Organization [facility] Address Unknown Phone Unavailable Encounter HQ Denisa(FIN) [id number] Date(s): 12/28/16 - 12/28/16 [facility] [address] [place] [address]- Attending Physician: Hardeep Eckert MD Referring Physician: Mike Mercedes DO Vital Signs No data available for this [...] Procedures Procedure Date Related Diagnosis Body Site Discectomy Nasal septal operation Stent placement Tonsil operation Social History Social History Type Response Substance Abuse Use: None. Alcohol Past Smoking Status Former smoker; Type: Cigarettes; Exposure to Tobacco Smoke None; Cigarette Smoking Last 365 Days No; Reg Smoking Cessation Counseling No Assessment and Plan No data available for this section
--- OUTSIDE RECORDS SUMMARY | 2018-09-06 05:16 | XMS REPORT | Summary of Care ---
Author Author [facility] Organization [facility] Address Unknown Phone Unavailable Encounter HQ Cristino_mari(FIN) [id number] Date(s): 12/14/17 - 12/14/17 [facility] [address] [facility] [address] [phone] Attending Physician: Oralia Coughlin NP Referring Physician: Mike Mercedes DO Vital Signs [...]
--- OUTSIDE RECORDS SUMMARY | 2018-09-06 05:16 | XMS REPORT | Summary of Care ---
Author Author [facility] Organization [facility] Address Unknown Phone Unavailable Encounter TUNDE Crawley(FRANCISCO) [id number] Date(s): 12/13/16 - 12/20/16 [facility] [address] [place] [address]- [phone] 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, lumbar region Discharge Disposition: Acute Care Attending Physician: Jimenez Fonseca DO Admitting Physician: Jimenez Fonseca DO Referring Physician: Jozef Simpson MD Vital Signs 1 2 3 Most recent to oldest [Reference Range]: 187.96 cm (12/13/16 11:48 PM) 187.96 cm (12/07/16 12:14 PM) Height 98 DegF (12/20/16 3:35 PM) 98.1 DegF (12/20/16 12:11 PM) 98.1 DegF (12/20/16 7:37 AM) Temperature Oral [96.4-99.1 DegF] 148/77 mmHg *HI* (12/20/16 3:35 PM) 127/70 mmHg (12/20/16 12:11 PM) 144/85 mmHg *HI* (12/20/16 7:37 AM) Blood Pressure [90-140/60-90 mmHg] 17 BRMIN (12/20/16 3:35 PM) 18 BRMIN (12/20/16 12:11 PM) 18 BRMIN (12/20/16 9:04 AM) Respiratory Rate [14-20 BRMIN] 67 bpm (12/20/16 3:35 PM) 74 bpm (12/20/16 12:11 PM) 63 bpm (12/20/16 7:37 AM) Peripheral Pulse Rate [60-100 bpm] 97.864 kg (12/13/16 11:48 PM) 97.869 kg (12/07/16 12:14 PM) Weight 27.7 m2 (12/13/16 11:48 PM) 27.7 m2 (12/07/16 12:14 PM) Body Mass Index Problem List Condition Effective Dates Status Health Status Informant CAD (coronary artery Resolved disease)(Confirmed) Ulcerative Active colitis(Confirmed) Diabetes(Confirmed) Active Gout(Confirmed) Resolved Hypertension(Confirm Active ed) Lymphoma(Confirmed) Active BPH (benign Active prostatic hypertrophy)(Confirm ed) Sleep Active apnea(Confirmed) TIA (transient Resolved ischemic attack)(Confirmed) Allergies, Adverse Reactions, Alerts Substance Reaction Severity Status atorvastatin Active pioglitazone Active rosuvastatin Active Medications RN Please bring home med FLUTICASONE & LIALDA to Pharmacy RN Please bring home med FLUTICASONE & LIALDA to Pharmacy, 1, Drug form: MISC, Route: MISC, TID, 12/16/16 20:00:00 CDT, Duration: 30 day, Stop date: 01/15/17 15:00:00 CDT Start Date: 12/16/16 Stop Date: 12/20/16 Status: Discontinued acetaminophen (ANES) (ANES) Route: IV, Drug form: INJ, Start date: 12/13/16 17:20:00 CDT, Stop date: 7 18:20:00 CDT Start Date: 12/13/16 Stop Date: 12/13/16 Status: Completed acetaminophen-codeine 300 mg-30 mg oral tablet 1 tab, Route: PO, Dosing Weight 97.864, kg, Q4H, PRN Pain Score 4-6, Start date: 12/14/16 12:58:00 CDT, Duration: 30 day, Stop date: 01/13/17 12:57:00 CDT Start Date: 12/14/16 Stop Date: 12/14/16 Status: Discontinued acetaminophen-codeine 300 mg-30 mg oral tablet 1 tab, Route: PO, Dosing Weight 97.864, kg, Q4H, PRN Pain Score 7-10, Start date : 12/14/16 12:58:00 CDT, Duration: 30 day, Stop date: 01/13/17 12:57:00 CDT Start Date: 12/14/16 Stop Date: 12/14/16 Status: Discontinued acetaminophen-hydrocodone 325 mg-5 mg oral tablet 2 tab, Route: PO, Drug Form: TAB, Dosing Weight 97.869, kg, Q4H, PRN Pain Score 7-10, Start date: 12/13/16 20:33:00 CDT, Stop date: 01/12/17 20:32:00 CDT Notes: (Same as: Alcoa 325/5) Do not exceed 4gm/day of acetaminophen. Start Date: 12/13/16 Stop Date: 12/14/16 Status: Discontinued acetaminophen-hydrocodone 325 mg-5 mg oral tablet 1 tab, Route: PO, Drug Form: TAB, Dosing Weight 97.869, kg, Q4H, PRN Pain Score 4-6, Start date: 12/13/16 20:33:00 CDT, Duration: 30 day, Stop date: 01/12/17 20 :32:00 CDT Notes: (Same as: Alcoa 325/5) Do not exceed 4gm/day of acetaminophen. Start Date: 12/13/16 Stop Date: 12/14/16 Status: Discontinued albuterol-ipratropium 2.5-0.5 mg inhalation solution 3 mL, Route: NEB, Dosing Weight 97.869, kg, ONCE, STAT, Start date: 12/13/16 10: 11:00 CDT, Stop date: 12/13/16 10:11:00 CDT Start Date: 12/13/16 Stop Date: 12/13/16 Status: Discontinued Anusol-HC 25 mg rectal suppository 25 mg, 1 supp, Route: CA, BID, Drug form: SUPP, Start date: 12/17/16 17:00:00 CD T, Duration: 30 day, Stop date: 01/16/17 9:00:00 CDT Notes: (Same as: Anusol-HC, Hemorrhoidal HC) Start Date: 12/17/16 Stop Date: 12/20/16 Status: Discontinued ceFAZolin (ANES) Route: IV, Drug form: INJ, ONCE, Stop date: 12/13/16 19:40:00 CDT Start Date: 12/13/16 Stop Date: 12/13/16 Status: Completed ceFAZolin (ANES) Route: IV, Drug form: INJ, ONCE, Stop date: 12/13/16 14:04:00 CDT Start Date: 12/13/16 Stop Date: 12/13/16 Status: Completed ceFAZolin (ANES) (ANES) Route: IV, Drug form: INJ, Start date: 12/13/16 16:09:00 CDT, Stop date: 7 17:09:00 CDT Start Date: 12/13/16 Stop Date: 12/13/16 Status: Completed ceFAZolin (SCIP) 1 gm, 100 mL, Route: IVPB, Drug form: INJ, [id number], Dosing Weight 97.869, kg, Sta rt date: 12/14/16 3:00:00 CDT, Duration: 3 doses or times, Stop date: 12/14/16 1 9:00:00 CDT Start Date: 12/14/16 Stop Date: 12/14/16 Status: Completed Citrate of Magnesia 300 ml, Route: PO, Drug Form: LIQ, Dosing Weight 97.869, kg, ONCE, PRN Constipat ion, Start date: 12/15/16 11:14:00 CDT Notes: (Same as: Citrate of Magnesia)Concentration: 1.745 gm / 30 mL Start Date: 12/15/16 Stop Date: 12/15/16 Status: Completed Colace 100 mg oral capsule 100 mg, 1 cap, Route: PO, Drug form: CAP, BID, Dosing Weight 97.869, kg, Start d ate: 12/14/16 9:00:00 CDT, Duration: 30 day, Stop date: 01/12/17 17:00:00 CDT Notes: (Same as: Colace) (Do Not Crush) Start Date: 12/14/16 Stop Date: 12/20/16 Status: Discontinued cyclobenzaprine 10 mg, 1 tab, Route: PO, Drug form: TAB, TID, Dosing Weight 97.864, kg, PRN Spas m, Start date: 12/14/16 12:59:00 CDT, Duration: 30 day, Stop date: 01/13/17 12:5 8:00 CDT Notes: (Same As: Flexeril) Start Date: 12/14/16 Stop Date: 12/20/16 Status: Discontinued Dextrose 50% Syringe 25 gm, 50 mL, Route: IVP, Drug Form: INJ, Dosing Weight 97.864, kg, PRN, PRN Blo od Glucose Results, Start date: 12/14/16 11:46:00 CDT, Duration: 30 day, Stop da te: 01/13/17 11:45:00 CDT Start Date: 12/14/16 Stop Date: 12/20/16 Status: Discontinued Dextrose 50% Syringe 12.5 gm, 25 mL, Route: IVP, Drug Form: INJ, Dosing Weight 97.864, kg, PRN, PRN B lood Glucose Results, Start date: 12/14/16 11:46:00 CDT, Duration: 30 day, Stop date: 01/13/17 11:45:00 CDT Start Date: 12/14/16 Stop Date: 12/20/16 Status: Discontinued Dilaudid 1 mg, 1 mL, Route: IV, Drug form: INJ, Q3H, Dosing Weight 97.869, kg, PRN Pain S core 7-10, Start date: 12/13/16 20:33:00 CDT, Duration: 30 day, Stop date: 01/12 20:32:00 CDT Start Date: 12/13/16 Stop Date: 12/13/16 Status: Discontinued Dilaudid 0.5 mg, 0.5 mL, Route: IV, Drug form: INJ, Q3H, Dosing Weight 97.869, kg, PRN Pa in Score 4-6, Start date: 12/13/16 20:33:00 CDT, Duration: 30 day, Stop date: 20:32:00 CDT Start Date: 12/13/16 Stop Date: 12/13/16 Status: Discontinued Dulcolax Laxative 10 mg, 2 tab, Route: PO, Drug form: ECTAB, Daily, Dosing Weight 97.864, kg, Star t date: 12/20/16 9:00:00 CDT, Duration: 30 day, Stop date: 01/18/17 9:00:00 CDT Notes: (Same As: Dulcolax, Correctol) (Do Not Crush) "Do Not Crush" Start Date: 12/20/16 Stop Date: 12/20/16 Status: Discontinued DuoNeb inhalation solution 3 ml, Route: NEB, Drug Form: SOLN, Dosing Weight 97.864, kg, PRN, PRN Respirator y Protocol, Start date: 12/15/16 10:30:00 CDT, Duration: 30 day, Stop date: 01/01 12/18 10:29:00 CDT Notes: (Same as: Duoneb) Start Date: 12/15/16 Stop Date: 12/20/16 Status: Discontinued ePHEDrine (ANES) Route: IV, Drug form: INJ, ONCE, Stop date: 12/13/16 13:49:00 CDT Start Date: 12/13/16 Stop Date: 12/13/16 Status: Completed fentaNYL 25 microgram, Route: IVP, ONCE, Dosing Weight 97.869, kg, Start date: 12/13/16 1 1:25:00 CDT, Stop date: 12/13/16 11:25:00 CDT Start Date: 12/13/16 Stop Date: 12/13/16 Status: Completed fentaNYL (ANES) Route: IV, Drug form: INJ, ONCE, Stop date: 12/13/16 15:55:00 CDT Start Date: 12/13/16 Stop Date: 12/13/16 Status: Completed fentaNYL (ANES) Route: IV, Drug form: INJ, ONCE, Stop date: 12/13/16 14:04:00 CDT Start Date: 12/13/16 Stop Date: 12/13/16 Status: Completed finasteride 5 mg, 1 tab, Route: PO, Drug form: TAB, Bedtime, Dosing Weight 97.869, kg, Start date: 12/14/16 9:00:00 CDT, Stop date: 01/12/17 21:00:00 CDT Notes: blets Start Date: 12/14/16 Stop Date: 12/20/16 Status: Discontinued Flomax 0.4 mg, 1 cap, Route: PO, Drug form: CAP, Daily, Dosing Weight 97.869, kg, Start date: 12/14/16 9:00:00 CDT, Duration: 30 day, Stop date: 01/12/17 9:00:00 CDT Notes: (Same As: Flomax) "Do Not Crush" Start Date: 12/14/16 Stop Date: 12/20/16 Status: Discontinued fluticasone 50 mcg inhalation powder 50 microgram, Route: INHALATION, Drug Form: PWDR, Dosing Weight 97.869, kg, Gayla y, Start date: 12/14/16 9:00:00 CDT, Duration: 30 day, Stop date: 01/12/17 9:00: 00 CDT Start Date: 12/14/16 Stop Date: 12/20/16 Status: Discontinued fluticasone 50 mcg inhalation powder 50 microgram=, INHALATION, Daily, 0 Refill(s) Start Date: 12/07/16 Status: Ordered glipiZIDE 10 mg oral tablet 10 mg, 1 tab, Route: PO, Drug form: TAB, Before Breakfast, Dosing Weight 97.869, kg, Start date: 12/14/16 7:30:00 CDT, Duration: 30 day, Stop date: 01/12/17 7:3 0:00 CDT Notes: (Same as: Glucotrol) 30 min before meals. Start Date: 12/14/16 Stop Date: 12/20/16 Status: Discontinued glucagon 1 mg, Route: IM, Drug form: PDR/INJ, PRN, Dosing Weight 97.864, kg, PRN Blood Gl ucose Results, Start date: 12/14/16 11:46:00 CDT, Duration: 30 day, Stop date: 0 01/13/17 11:45:00 CDT Start Date: 12/14/16 Stop Date: 12/20/16 Status: Discontinued glycopyrrolate (ANES) Route: IV, Drug form: INJ, ONCE, Stop date: 12/13/16 20:42:00 CDT Start Date: 12/13/16 Stop Date: 12/13/16 Status: Completed heparin 5000 units/mL injectable solution 5,000 unit, 1 mL, Route: SUB-Q, Drug form: INJ, Q12H, Dosing Weight 97.869, kg, Start date: 12/14/16 8:00:00 CDT, Duration: 30 day, Stop date: 01/12/17 20:00:00 CDT Notes: porcine heparin Start Date: 12/14/16 Stop Date: 12/20/16 Status: Discontinued hydromorphone (ANES) Route: IV, Drug form: INJ, ONCE, Stop date: 12/13/16 17:15:00 CDT Start Date: 12/13/16 Stop Date: 12/13/16 Status: Completed insulin aspart 10 unit, 0.1 mL, Route: SUB-Q, Drug form: SOLN, TID-Before Meals, Dosing Weight 97.864, kg, PRN Blood Glucose Results, Start date: 12/14/16 11:46:00 CDT, Durati on: 30 day, Stop date: 01/13/17 11:45:00 CDT Notes: Roll in palms of hands gently; Do not shake vigorously. (Same as: Cait Amos)"single patient use only"WASTE: F/P - Black; E - Municipal Trash Bin Stable f or 28 days at room temperature.Expires in days from Date Start Date: 12/14/16 Stop Date: 12/20/16 Status: Discontinued insulin aspart 6 unit, 0.06 mL, Route: SUB-Q, Drug form: SOLN, TID-Before Meals, Dosing Weight 97.864, kg, PRN Blood Glucose Results, Start date: 12/14/16 11:46:00 CDT, Durati on: 30 day, Stop date: 01/13/17 11:45:00 CDT Notes: Roll in palms of hands gently; Do not shake vigorously. (Same as: Cait Amos)"single patient use only"WASTE: F/P - Black; E - Municipal Trash Bin Stable f or 28 days at room temperature.Expires in days from Date Start Date: 12/14/16 Stop Date: 12/20/16 Status: Discontinued insulin aspart 8 unit, 0.08 mL, Route: SUB-Q, Drug form: SOLN, TID-Before Meals, Dosing Weight 97.864, kg, PRN Blood Glucose Results, Start date: 12/14/16 11:46:00 CDT, Durati on: 30 day, Stop date: 01/13/17 11:45:00 CDT Notes: Roll in palms of hands gently; Do not shake vigorously. (Same as: Cait Amos)"single patient use only"WASTE: F/P - Black; E - Municipal Trash Bin Stable f or 28 days at room temperature.Expires in days from Date Start Date: 12/14/16 Stop Date: 12/20/16 Status: Discontinued insulin aspart 2 unit, 0.02 mL, Route: SUB-Q, Drug form: SOLN, TID-Before Meals, Dosing Weight 97.864, kg, PRN Blood Glucose Results, Start date: 12/14/16 11:46:00 CDT, Durati on: 30 day, Stop date: 01/13/17 11:45:00 CDT Notes: Roll in palms of hands gently; Do not shake vigorously. (Same as: Cait Amos)"single patient use only"WASTE: F/P - Black; E - Municipal Trash Bin Stable f or 28 days at room temperature.Expires in days from Date Start Date: 12/14/16 Stop Date: 12/20/16 Status: Discontinued insulin aspart 4 unit, 0.04 mL, Route: SUB-Q, Drug form: SOLN, TID-Before Meals, Dosing Weight 97.864, kg, PRN Blood Glucose Results, Start date: 12/14/16 11:46:00 CDT, Durati on: 30 day, Stop date: 01/13/17 11:45:00 CDT Notes: Roll in palms of hands gently; Do not shake vigorously. (Same as: Cait Amos)"single patient use only"WASTE: F/P - Black; E - Municipal Trash Bin Stable f or 28 days at room temperature.Expires in days from Date Start Date: 12/14/16 Stop Date: 12/20/16 Status: Discontinued insulin aspart 1 unit, 0.01 mL, Route: SUB-Q, Drug form: SOLN, Bedtime, Dosing Weight 97.864, k g, PRN Blood Glucose Results, Start date: 12/14/16 11:46:00 CDT, Duration: 30 da y, Stop date: 01/13/17 11:45:00 CDT Notes: Roll in palms of hands gently; Do not shake vigorously. (Same as: NovoMYNOR Amos)"single patient use only"WASTE: F/P - Black; E - Municipal Trash Bin Stable f or 28 days at room temperature.Expires in days from Date Start Date: 12/14/16 Stop Date: 12/20/16 Status: Discontinued insulin aspart 4 unit, 0.04 mL, Route: SUB-Q, Drug form: SOLN, Bedtime, Dosing Weight 97.864, k g, PRN Blood Glucose Results, Start date: 12/14/16 11:46:00 CDT, Duration: 30 da y, Stop date: 01/13/17 11:45:00 CDT Notes: Roll in palms of hands gently; Do not shake vigorously. (Same as: NovoMYNOR Amos)"single patient use only"WASTE: F/P - Black; E - Municipal Trash Bin Stable f or 28 days at room temperature.Expires in days from Date Start Date: 12/14/16 Stop Date: 12/20/16 Status: Discontinued insulin aspart 2 unit, 0.02 mL, Route: SUB-Q, Drug form: SOLN, Bedtime, Dosing Weight 97.864, k g, PRN Blood Glucose Results, Start date: 12/14/16 11:46:00 CDT, Duration: 30 da y, Stop date: 01/13/17 11:45:00 CDT Notes: Roll in palms of hands gently; Do not shake vigorously. (Same as: NovoMYNOR Amos)"single patient use only"WASTE: F/P - Black; E - Municipal Trash Bin Stable f or 28 days at room temperature.Expires in days from Date Start Date: 12/14/16 Stop Date: 12/20/16 Status: Discontinued insulin aspart 3 unit, 0.03 mL, Route: SUB-Q, Drug form: SOLN, Bedtime, Dosing Weight 97.864, k g, PRN Blood Glucose Results, Start date: 12/14/16 11:46:00 CDT, Duration: 30 da y, Stop date: 01/13/17 11:45:00 CDT Notes: Roll in palms of hands gently; Do not shake vigorously. (Same as: NovoMYNOR Amos)"single patient use only"WASTE: F/P - Black; E - Municipal Trash Bin Stable f or 28 days at room temperature.Expires in days from Date Start Date: 12/14/16 Stop Date: 12/20/16 Status: Discontinued insulin detemir 22 unit, 0.22 mL, Route: SUB-Q, Drug form: SOLN, Bedtime, Start date: 12/13/16 2 2:00:00 CDT, Duration: 30 day, Stop date: 01/12/17 21:00:00 CDT Notes: Same as Sherwin not hold insulin without contacting prescriberWASTE: F/ P - Black; E - Municipal Trash Bin "single patient use only" Start Date: 12/13/16 Stop Date: 12/20/16 Status: Discontinued Keflex 500 mg, 2 cap, Route: PO, Drug form: CAP, [id number], Dosing Weight 97.864, kg, Sta rt date: 12/18/16 8:00:00 CDT, Duration: 14 day, Stop date: 12/31/16 20:00:00 CD T Notes: Take on empty stomach. (Same As: Keflex) Start Date: 12/18/16 Stop Date: 12/20/16 Status: Discontinued Lactated Ringers Injection IV 1000 mL 1,000 mL, Rate: 25 ml/hr, Infuse over: 40 hr, Route: IV, Dosing Weight 97.869 kg , Total Volume: 1,000, Start date: 12/13/16 10:11:00 CDT, Duration: 30 day, Stop date: 01/12/17 10:10:00 CDT Start Date: 12/13/16 Stop Date: 12/13/16 Status: Discontinued lactulose 10 g/15 mL oral syrup 20 gm, 30 ml, Route: PO, Drug form: SYRP, ONCE, Dosing Weight 97.864, kg, Start date: 12/19/16 13:00:00 CDT, Stop date: 12/19/16 13:00:00 CDT Notes: (Same as:Chronulac) Start Date: 12/19/16 Stop Date: 12/19/16 Status: Completed Lantus 100 units/mL 22 unit, Route: SUB-Q, Drug form: SOLN, Bedtime, Dosing Weight 97.869, kg, Start date: 12/13/16 21:00:00 CDT, Duration: 30 day, Stop date: 01/11/17 21:00:00 CDT Start Date: 12/13/16 Stop Date: 12/13/16 Status: Deleted Lialda 2.4 gm, Route: PO, Drug form: ECTAB, Daily, Dosing Weight 97.864, kg, Start date : 12/17/16 9:00:00 CDT, Duration: 30 day, Stop date: 01/15/17 9:00:00 CDT Start Date: 12/17/16 Stop Date: 12/20/16 Status: Discontinued lidocaine (ANES) Route: IV, Drug form: INJ, ONCE, Stop date: 12/13/16 14:04:00 CDT Start Date: 12/13/16 Stop Date: 12/13/16 Status: Completed losartan 100 mg, 2 tab, Route: PO, Drug form: TAB, Bedtime, Dosing Weight 97.869, kg, Sta rt date: 12/14/16 9:00:00 CDT, Stop date: 01/12/17 21:00:00 CDT Notes: (Same as: Wendy) Start Date: 12/14/16 Stop Date: 12/20/16 Status: Discontinued LR 1000 mL INJ (ANES) Route: IV, Total Volume: 1,000, Start date: 12/13/16 12:36:00 CDT, Stop date: 13:36:00 CDT Start Date: 12/13/16 Stop Date: 12/13/16 Status: Completed magnesium citrate 300 ml, Route: PO, Drug Form: LIQ, Dosing Weight 97.869, kg, ONCE, PRN Constipat ion, Start date: 12/13/16 20:33:00 CDT Notes: (Same as: Citrate of Magnesia)Concentration: 1.745 gm / 30 mL Start Date: 12/13/16 Stop Date: 12/15/16 Status: Deleted magnesium citrate 1.745 g/30 mL oral liquid 150 ml, Route: PO, Drug Form: LIQ, Dosing Weight 97.864, kg, ONCE, Start date: 0 12/16/16 14:50:00 CDT, Stop date: 12/16/16 14:50:00 CDT Notes: (Same as: Citrate of Magnesia)Concentration: 1.745 gm / 30 mL Start Date: 12/16/16 Stop Date: 12/16/16 Status: Completed metFORMIN 500 mg, PO, Dinner, 0 Refill(s) Start Date: 12/17/16 Status: Ordered metFORMIN PO, Daily, 0 Refill(s) Start Date: 12/13/16 Stop Date: 12/17/16 Status: Deleted midazolam (ANES) Route: IV, Drug form: SOLN, ONCE, Stop date: 12/13/16 13:49:00 CDT Start Date: 12/13/16 Stop Date: 12/13/16 Status: Completed morphine Sulfate 4 mg, 1 mL, Route: IVP, Drug form: SOLN, Q3H, Dosing Weight 97.864, kg, PRN Pain Score 6-10, Start date: 12/14/16 12:37:00 CDT, Duration: 30 day, Stop date: 12:36:00 CDT Notes: (Same as:MORPhine Sulfate) Start Date: 12/14/16 Stop Date: 12/14/16 Status: Discontinued morphine Sulfate 1 mg, 0.5 mL, Route: IVP, Drug form: INJ, Q2H, Dosing Weight 97.869, kg, PRN Belem n Score 4-6, Start date: 12/13/16 22:44:00 CDT, Duration: 30 day, Stop date: 08/19 22:43:00 CDT Notes: (Same as:MORPhine Sulfate) Start Date: 12/13/16 Stop Date: 12/14/16 Status: Discontinued morphine Sulfate 2 mg, 1 mL, Route: IVP, Drug form: INJ, Q6H, Dosing Weight 97.864, kg, PRN Pain Score 7-10, Start date: 12/15/16 10:31:00 CDT, Duration: 30 day, Stop date: 01/01 12/18 10:30:00 CDT Notes: (Same as:MORPhine Sulfate) Start Date: 12/15/16 Stop Date: 12/20/16 Status: Discontinued morphine Sulfate 2 mg, 1 mL, Route: IVP, Drug form: INJ, Q2H, Dosing Weight 97.869, kg, PRN Pain Score 7-10, Start date: 12/13/16 22:43:00 CDT, Duration: 30 day, Stop date: 01/01 10/20 22:42:00 CDT Notes: (Same as:MORPhine Sulfate) Start Date: 12/13/16 Stop Date: 12/14/16 Status: Discontinued morphine Sulfate 2 mg, 1 mL, Route: IVP, Drug form: INJ, Q3H, Dosing Weight 97.864, kg, PRN Pain Score 4-6, Start date: 12/14/16 12:37:00 CDT, Duration: 30 day, Stop date: 01/13 12:36:00 CDT Notes: (Same as:MORPhine Sulfate) Start Date: 12/14/16 Stop Date: 12/14/16 Status: Discontinued morphine Sulfate 15 mg, 1 tab, Route: PO, Drug form: TAB, Q4H, Dosing Weight 97.864, kg, PRN Othe r -See Comment, Start date: 12/14/16 13:16:00 CDT, Duration: 30 day, Stop date: 01/13/17 13:15:00 CDT, Pain Score 4-8 Notes: (Same as:MORPhine Sulfate) Start Date: 12/14/16 Stop Date: 12/15/16 Status: Discontinued morphine Sulfate 4 mg, 1 mL, Route: IVP, Drug form: SOLN, Q4H, Dosing Weight 97.864, kg, PRN Pain Score 6-10, Start date: 12/14/16 13:15:00 CDT, Duration: 30 day, Stop date: 13:14:00 CDT Notes: (Same as:MORPhine Sulfate) Start Date: 12/14/16 Stop Date: 12/15/16 Status: Discontinued multivitamin Daily, 0 Refill(s) Start Date: 12/07/16 Status: Ordered naproxen 500 mg, PO, PRN Pain, # 30 tab, 0 Refill(s) Start Date: 12/07/16 Stop Date: 12/20/16 Status: Discontinued neostigmine (ANES) Route: IV, Drug form: INJ, ONCE, Stop date: 12/13/16 20:42:00 CDT Start Date: 12/13/16 Stop Date: 12/13/16 Status: Completed Neurontin 100 mg oral capsule 100 mg, 1 cap, Route: PO, Drug form: CAP, TID, Dosing Weight 97.869, kg, Start d ate: 12/14/16 9:00:00 CDT, Duration: 30 day, Stop date: 01/12/17 17:00:00 CDT Notes: (Same as: Neurontin) Start Date: 12/14/16 Stop Date: 12/20/16 Status: Discontinued NIFEdipine 90 mg oral tablet, extended release 90 mg, 1 tab, Route: PO, Drug form: ERTAB, Daily, Dosing Weight 97.869, kg, Star t date: 12/14/16 9:00:00 CDT, Duration: 30 day, Stop date: 01/12/17 9:00:00 CDT Notes: (Same as: Adalat CC,Procardia XL)"Do Not Crush" "Avoid grapefruit and gr apefruit juice" Start Date: 12/14/16 Stop Date: 12/20/16 Status: Discontinued Alcoa 10/325 oral tablet 2 tab, Route: PO, Drug Form: TAB, Dosing Weight 97.864, kg, Q6H, PRN Pain Score 7-10, Start date: 12/14/16 12:38:00 CDT, Duration: 30 day, Stop date: 01/13/17 1 2:37:00 CDT Notes: Do not exceed 4gm/day of acetaminophen. (Same as: Al[place]a 325/10) Start Date: 12/14/16 Stop Date: 12/14/16 Status: Discontinued Al[place]a 10/325 oral tablet 1 tab, Route: PO, Drug Form: TAB, Dosing Weight 97.864, kg, Q6H, PRN Pain Score 4-6, Start date: 12/14/16 12:38:00 CDT, Duration: 30 day, Stop date: 01/13/17 12 :37:00 CDT Notes: Do not exceed 4gm/day of acetaminophen. (Same as: Al[place]a 325/10) Start Date: 12/14/16 Stop Date: 12/14/16 Status: Discontinued ondansetron (ANES) Route: IV, Drug form: INJ, ONCE, Stop date: 12/13/16 20:20:00 CDT Start Date: 12/13/16 Stop Date: 12/13/16 Status: Completed Pepcid 20 mg oral tablet 20 mg, 1 tab, Route: PO, Drug form: TAB, Q12H, Dosing Weight 97.869, kg, Start d ate: 12/13/16 21:00:00 CDT, Duration: 30 day, Stop date: 01/12/17 9:00:00 CDT Notes: (Same as: Pepcid) Start Date: 12/13/16 Stop Date: 12/20/16 Status: Discontinued phenylephrine (ANES) Route: IV, Drug form: INJ, ONCE, Stop date: 12/13/16 14:29:00 CDT Start Date: 12/13/16 Stop Date: 12/13/16 Status: Completed propofol (ANES) Route: IV, Drug form: INJ, ONCE, Stop date: 12/13/16 14:04:00 CDT Start Date: 12/13/16 Stop Date: 12/13/16 Status: Completed rocuronium (ANES) Route: IV, Drug form: INJ, ONCE, Stop date: 12/13/16 16:20:00 CDT Start Date: 12/13/16 Stop Date: 12/13/16 Status: Completed rocuronium (ANES) Route: IV, Drug form: INJ, ONCE, Stop date: 12/13/16 14:04:00 CDT Start Date: 12/13/16 Stop Date: 12/13/16 Status: Completed Senokot 17.2 mg, 2 tab, Route: PO, Drug Form: TAB, Dosing Weight 97.869, kg, Daily, Star t date: 12/14/16 9:00:00 CDT, Duration: 30 day, Stop date: 01/12/17 9:00:00 CDT Notes: (Same as: Senokot) Start Date: 12/14/16 Stop Date: 12/20/16 Status: Discontinued sodium chloride 0.9% 1000 ml INJ (ANES) Route: IV, Total Volume: 1,000, Start date: 12/13/16 12:48:00 CDT, Stop date: 13:48:00 CDT Start Date: 12/13/16 Stop Date: 12/13/16 Status: Completed sodium chloride 0.9% 1000 ml INJ 1,000 mL 1,000 mL, Rate: 75 ml/hr, Infuse over: 13.3 hr, Route: IV, Dosing Weight 97.869 kg, Total Volume: 1,000, Start date: 12/13/16 20:33:00 CDT, Duration: 30 day, St op date: 01/12/17 20:32:00 CDT Start Date: 12/13/16 Stop Date: 12/16/16 Status: Discontinued Toprol-XL 25 mg oral tablet, extended release 25 mg, 1 tab, Route: PO, Drug form: ERTAB, Daily, Start date: 12/14/16 9:00:00 C DT, Duration: 30 day, Stop date: 01/12/17 9:00:00 CDT Notes: (Same as: Toprol XL) Do Not Crush Start Date: 12/14/16 Stop Date: 12/20/16 Status: Discontinued tramadol 50 mg oral tablet 50 mg, 1 tab, Route: PO, Drug form: TAB, Q6H, Dosing Weight 97.864, kg, PRN Pain Score 1-3, Start date: 12/15/16 10:31:00 CDT, Duration: 30 day, Stop date: 01/01 12/18 10:30:00 CDT Notes: Not to exceed 400mg/day. (Same As: Ultram) Start Date: 12/15/16 Stop Date: 12/20/16 Status: Discontinued Tylenol 650 mg, 2 tab, Route: PO, Drug form: TAB, Q4H, Dosing Weight 97.869, kg, PRN [place] n 1-3/Temp > 100.4 F, Start date: 12/13/16 20:33:00 CDT, Duration: 30 day, Stop date: 01/12/17 20:32:00 CDT Notes: Do not exceed 4 gm/day. (Same as: Tylenol) Start Date: 12/13/16 Stop Date: 12/20/16 Status: Discontinued Tylenol with Codeine #4 oral tablet 1 tab, Route: PO, Drug Form: TAB, Dosing Weight 97.864, kg, Q4H, PRN Pain Score 4-6, Start date: 12/15/16 10:35:00 CDT, Duration: 30 day, Stop date: 01/14/17 10 :34:00 CDT, Pain Score 4-7 Notes: Do not exceed 4gm/day of acetaminophen. (Same as: Tylenol with Codeine # 4) Start Date: 12/15/16 Stop Date: 12/20/16 Status: Discontinued Zofran 4 mg, 2 mL, Route: IV, Drug form: INJ, Q8H, Dosing Weight 97.869, kg, PRN Nausea , Start date: 12/13/16 20:33:00 CDT, Duration: 30 day, Stop date: 01/12/17 20:32 :00 CDT Notes: (Same as: Zofran) MEDICATION WASTE Product Size: 4 mgProduct Was loy: ___ mg Start Date: 12/13/16 Stop Date: 12/20/16 Status: Discontinued Results BLOOD BANK RESULTS Most recent to 1 oldest [Reference Range]: ABO/Rh O POS *Unknown* (12/07/16 12:21 PM) Antibody Scrn Negative (12/07/16 12:21 PM) ELECTROLYTES Most recent to 1 oldest [Reference Range]: Sodium Lvl [135-145 140 mEq/L mEq/L] (12/07/16 12:21 PM) Potassium Lvl 3.8 mEq/L [3.5-5.1 mEq/L] (12/07/16 12:21 PM) Chloride Lvl [95-109 102 mEq/L mEq/L] (12/07/16 12:21 PM) CO2 [24-32 mEq/L] 33 mEq/L *HI* (12/07/16 12:21 PM) AGAP [10.0-20.0 8.8 mEq/L mEq/L] *LOW* (12/07/16 12:21 PM) CHEM PANEL Most recent to 1 oldest [Reference Range]: Creatinine Lvl 0.91 mg/dL [0.50-1.40 mg/dL] (4/6/17 12:21 PM) eGFR 85 mL/min/1.73m2 1 *NA* (12/07/16 PM) BUN [7-22 mg/dL] 21 mg/dL (12/07/16 PM) B/C Ratio [6-25] 23 (12/07/16 PM) Glucose Lvl [70-99 116 mg/dL mg/dL] *HI* (12/07/16 PM) Total Protein 7.4 g/dL [6.4-8.4 g/dL] (12/07/16 PM) Albumin Lvl [3.5-5.0 3.9 g/dL g/dL] (12/07/16 PM) Globulin [2.7-4.2 3.5 g/dL g/dL] (12/07/16 PM) A/G Ratio [0.7-1.6] 1.1 (12/07/16 PM) Calcium Lvl 8.9 mg/dL [8.5-10.5 mg/dL] (12/07/16 PM) ALT [0-65 unit/L] 22 unit/L (12/07/16 PM) AST [0-37 unit/L] 14 unit/L (12/07/16 PM) Alk Phos [39-136 116 unit/L unit/L] (12/07/16 PM) Bili Total [0.2-1.3 0.5 mg/dL mg/dL] (12/07/16 PM) 1Result Comment: The eGFR is calculated using the [...] from the National Kidney Disease Education Program ( NKDEP) which additionally recommends that when the eGFR is used in patients with extremes of body mass index for purposes of drug dosing, the eGFR should be mul tiplied by the estimated BMI. HEMATOLOGY Most recent to 1 oldest [Reference Range]: WBC [3.7-10.4 K/CMM] 6.7 K/CMM (12/07/16 12:21 PM) RBC [4.70-6.10 4.74 M/CMM M/CMM] (12/07/16:21 PM) Hgb [14.0-18.0 g/dL] 14.1 g/dL (12/07/16:21 PM) Hct [42.0-54.0 %] 41.8 % *LOW* (12/07/16: PM) MCV [80.0-94.0 fL] 88.2 fL (12/07/16: PM) MCH [27.0-31.0 pg] 29.8 pg (12/07/16: PM) MCHC [32.0-36.0 33.8 g/dL g/dL] (12/07/16:21 PM) RDW [11.5-14.5 %] 14.4 % (12/07/16:21 PM) Platelet [133-450 221 K/CMM K/CMM] (12/07/16:21 PM) MPV [7.4-10.4 fL] 10.0 fL (12/07/16:21 PM) Segs [45.0-75.0 %] 60.8 % (12/07/16:21 PM) Lymphocytes 25.0 % [20.0-40.0 %] (12/07/16:21 PM) Monocytes [2.0-12.0 9.1 % %] (12/07/16 12:21 PM) Eosinophils [0.0-4.0 4.5 % %] *HI* (12/07/16 PM) Basophils [0.0-1.0 0.6 % %] (12/07/16:21 PM) Segs-Bands # 4.1 K/CMM [1.5-8.1 K/CMM] (12/07/16 12:21 PM) Lymphocytes # 1.7 K/CMM [1.0-5.5 K/CMM] (12/07/16 12:21 PM) Monocytes # [0.0-0.8 0.6 K/CMM K/CMM] (12/07/16 12:21 PM) Eosinophils # 0.3 K/CMM [0.0-0.5 K/CMM] (12/07/16 12:21 PM) PT [12.0-14.7 12.9 seconds seconds] (12/07/16 12:21 PM) INR [0.85-1.17] 0.95 (12/07/16 12:21 PM) PTT [22.9-35.8 28.6 seconds seconds] (12/07/16 12:21 PM) Immunizations No data available for this section Procedures Procedure Date Related Diagnosis Body Site Discectomy Nasal septal operation Stent placement Tonsil operation Social History Social History Type Response Substance Abuse Use: None. Alcohol Past Smoking Status Former smoker; Type: Cigarettes; Exposure to Tobacco Smoke None; Cigarette Smoking Last 365 Days No; Reg Smoking Cessation Counseling No Assessment and Plan Extracted from: Title: Clinical Document Author: Jimenez Fonseca DO Date: 12/20/16 Progress Daily [facility] Completed: Dec, 11:01 by Jimenez Fonseca DO RM: 235 - 1D, JOZEF HENDERSON [id number] (: 1945) M Attending: Jimenez Fonseca DOPhone: Service: Internal Medicine Reason for Admission: UNK Working DRG: Spinal fusion except cervical w/o HALF-WAY Code status: None Specified=FULL CODECurrent diet: Isolation: None Documented Allergies: rosuvastatin, atorvastatin, pioglitazone SUBJECTIVE Patient seen and examined. Events noted overnight. Labs/Images reviewed doing ok, pain controlled OBJECTIVE Labs (Last four charted values) WBC 6.7(DEC 07) Hgb 14.1(DEC 07) Hct L 41.8(DEC 07) Plt 221(DEC 07) Na 140(DEC 07) K 3.8(DEC 07) CO2 H 33(DEC 07) Cl 102(DEC 07) Cr 0.91(DEC 07) BUN 21(DEC 07) Glucose Random H 116(DEC 07) Ca 8.9(DEC 07) PT 12.9(DEC 07) INR 0.95(DEC 07) PTT 28.6(DEC 07) ASSESSMENT & EXAM NT & EXAM Gen: NAD, Alert, Awake HEENT: NC/AT, PERRLA, oral area clear and moist Neck: No LAD, No JVD, trachea midline Chest: CTAB, no c/w/r CV: RRR, S1, S2 GI: +BS, S, NT, ND, No organomegaly Ext: no c/c/e Neuro: AOx3, no gross deficits noted Skin: No notable rashes PLAN & TREATMENT contwith pain control as per pain management d/w CM/SW - poss approval today from insuracne BP stable BG stable medically clear to go to SNF once approved DIAGNOSES & PROBLEMS 1. Lumbar radiculopathy with shooting pains and is status post revision of the right L2-L3 microdiskectomy with a posterior fusion of L3-L4 with open correction of deformity. 2. Type 2 diabetes, appears to be controlled. 3. Hypertension, hyperlipidemia 4. Debility from post surgery Ready for Discharge (Yes/No)? Davis still necessary (Yes/No): Line still necessary (Yes/No): 24hr Labs 12/20 0641 Glucose LPF528 H 12/19 2136 Glucose ISD239 H 12/19 1627 Glucose TCD295 H 12/19 1126 Glucose BEO076 H VitalsTmp(F)[id number] 12/20 09:04 1896 21% 12/20 07:3798.533209/476831--- 12/20 04:2598.877100/221805--- 12/20 04:13 97 35% 12/20 00:1597.163994/468653--- 24 Hr Tmax: 98.2F (36.78c) at 12/19 20:15Vital Signs are the last 5 in the past 48 hours. DateWt(kg)Wt(lb)Ht(cm)Ht(in)Method 12/13 97.86 [phone] 74.00Measured 12/07 (initial) 97.87 215.31Measured 12/07187.96 74.00Stated I&ORecordInOutBal 12/1923hr Tot 0 0 0 12/1823hr Tot 1230 0 1230 Medications (37) Active Scheduled Meds (): 12/14/16 NIFEdipine (NIFEdipine 90 mg oral tablet, extended release) 90 mg PO Daily 12/20/16 bisacodyl (Dulcolax Laxative) 10 mg PO Daily 12/18/16 cephalexin (Keflex) 500 mg PO [id number] 12/14/16 docusate (Colace 100 mg oral capsule) 100 mg PO BID 12/13/16 famotidine (Pepcid 20 mg oral tablet) 20 mg PO Q12H 12/14/16 finasteride 5 mg PO Bedtime 12/14/16 fluticasone (fluticasone 50 mcg inhalation powder) 50 microgram INHALATION Daily 12/14/16 gabapentin (Neurontin 100 mg oral capsule) 100 mg PO TID 12/14/16 glipiZIDE (glipiZIDE 10 mg oral tablet) 10 mg PO Before Breakfast 12/14/16 heparin (heparin 5000 units/mL injectable solution) 5,000 unit SUB-Q Q12H 12/17/16 hydrocortisone topical (Anusol-HC 25 mg rectal suppository) 25 mg CA BID 12/13/16 insulin detemir 22 unit SUB-Q Bedtime 0 ml/hr 12/14/16 losartan 100 mg PO Bedtime 12/17/16 mesalamine (Lialda) 2.4 gm PO Daily 12/14/16 metoprolol (Toprol-XL 25 mg oral tablet, extended release) 25 mg PO Daily 12/16/16 non-formulary (RN Please bring home med FLUTICASONE & LIALDA to Pharmacy) MISC TID 12/14/16 senna (Senokot) 17.2 mg PO Daily 12/14/16 tamsulosin (Flomax) 0.4 mg PO Daily Unscheduled Meds: None PRN Meds (18): 12/14/16 Dextrose 50% in Water IV (Dextrose 50% Syringe) 12.5 gm IVP PRN 12/14/16 Dextrose 50% in Water IV (Dextrose 50% Syringe) 25 gm IVP PRN 12/15/16 acetaminophen-codeine (Tylenol with Codeine #4 oral tablet) 1 tab PO Q4H 12/13/16 acetaminophen (Tylenol) 650 mg PO Q4H 12/15/16 albuterol-ipratropium (DuoNeb inhalation solution) 3 ml NEB PRN 12/14/16 cyclobenzaprine 10 mg PO TID 12/14/16 glucagon 1 mg IM PRN 12/14/16 insulin aspart 2 unit SUB-Q TID-Before Meals 12/14/16 insulin aspart 4 unit SUB-Q TID-Before Meals 12/14/16 insulin aspart 6 unit SUB-Q TID-Before Meals 12/14/16 insulin aspart 8 unit SUB-Q TID-Before Meals 12/14/16 insulin aspart 10 unit SUB-Q TID-Before Meals 12/14/16 insulin aspart 1 unit SUB-Q Bedtime 12/14/16 insulin aspart 2 unit SUB-Q Bedtime 12/14/16 insulin aspart 3 unit SUB-Q Bedtime 12/14/16 insulin aspart 4 unit SUB-Q Bedtime 12/13/16 ondansetron (Zofran) 4 mg IV Q8H 12/15/16 tramadol (tramadol 50 mg oral tablet) 50 mg PO Q6H One Time Meds (1): 12/19/16 (Completed) lactulose (lactulose 10 g/15 mL oral syrup) 20 gm PO ONCE Continuous Infusions: None Extracted from: Title: Clinical Document Author: Jozef Simpson MD Date: 12/13/16 PATIENT NAME: JOZEF JOHN DATE OF OPERATION/PROCEDURE: 12/13/2016 *_*_* PREOPERATIVE DIAGNOSES: 1.L3-L4 grade II spondylolisthesis with L3 pars fracture and RIGHT L3-L4 foraminal stenosis 2.Prior L3-L4 laminectomy 3.RIGHT L2-L3 herniated disc with RIGHT L3-L4 lateral recess stenosis POSTOPERATIVE DIAGNOSES: 1.L3-L4 grade II spondylolisthesis with L3 pars fracture and RIGHT L3-L4 foraminal stenosis 2.Prior L3-L4 laminectomy 3.RIGHT L2-L3 herniated disc with RIGHT L3-L4 lateral recess stenosis PROCEDURES PERFORMED: 1.REVISION posterior midline and approach to the spine from L2-L3; BILATERAL parasagittal approach to the spine from L3-L4. 2.RIGHT approach hemilaminotomies, mesial facetectomy, and foraminotomies at L2-L3. 3.RIGHT L2-L3 microdiscectomy. 4.Posterolateral intertransverse process fusion at L3-L4. 5.Use of morcellized autograft for arthrodesis. 6.Segmental posterior instrumentation from L3 L4 using the following devices from [employer] ES2 Right L3 - 7.5 * 70 mm polyaxial screw L4 - 7.5 * 70 mm polyaxial screw Left L3 - 8.5 * 70 mm polyaxial screw L4 - 7.5 * 60 mm polyaxial screw 5.5 Titanium rods * 2 4 set screws 7.Use of radiographs for vertebral level localization. 8.Intraoperative neuronavigation with [employer] Neuronavigation using [employer] fluoroscopy system. 9.Use of microscope for decompression. 10.Open correction of fracture deformity SURGEON: Jozef Simpson M.D. JEWELRY FACER: Hira Joya ANESTHESIA: General endotracheal tube anesthesia. COMPLICATIONS: None. IV FLUID 2900 cc URINE OUTPUT: 450 cc ESTIMATED BLOOD LOSS 500 cc INDICATIONS FOR SURGERY: 71 yo M h/o 2 prior L3-L4 lumbar laminectomies in 2012 and 2015 presenting with severe back and RIGHT leg pain secondary to L3-L4 grade II spondylolisthesis, L3 pars fractures, RIGHT L3-L4 foraminal stenosis, and RIGHT L2-L3 herniated disc with RIGHT L2-L3 lateral recess stenosis. Patient notes low back and right thigh pain since 06/2016 after an operation for diverticulitis. MRI and CT lumbar show the above with additional L3-L4 endplate edema and hyperostosis. On exam, RIGHT Ips and Quad are 3/5 consistent with RIGHT L3 radiculopathy. Patient has failed PT, medications for 6 months with neurologic weakness and gross instability. We recommend: L2-L3 REVISION microdiscectomy, L3-L4 PSF, open correction of deformity with intraoperative navigation We discussed the risks and benefits of the procedure. Risks include bleeding, infection, neurologic injury, weakness, numbness, paralysis, cerebrospinal fluid leak, post-laminectomy instability, no improvement in symptoms, need for reoperation, and even . There is a risk of failure of instrumentation, failure of fusion, and adjacent segment disease. There is risk of disc rehernation of 10% the first year, 4% every year thereafter. The patient expressed understanding of the risks and benefits of procedure and wished to proceed. All questions were answered. No guarantees were made to the outcome of the case. DESCRIPTION OF OPERATION: The patient was appropriately identified with all markers. The patient was brought back by anesthesia and received general endotracheal tube anesthesia with the neck held in neutral position. The patient was then dosed with preoperative antibiotics. The patient was then turned prone onto a Gonzalez table. All bony prominences were padded. SCDs were placed on bilateral lower extremities. Confirmation level was performed with fluoroscopy for planning of the incision. The spine was then prepped and draped in sterile standard fashion including alcohol, ChloraPrep and Betadine scrub and paint. Operative timeout was performed. The incision was planned for a L2-L3 REVISION microdiscectomy, L3-L4 PSF, open correction of deformity with intraoperative navigation Skin was injected with 0.5% Marcaine with epinephrine. A 10 blade scalpel was then used to make a vertical longitudinal incision spanning the spinous processes from L2 to L3 partly through prior scar. Bovie cautery was used to deepen the incision through subcutaneous tissue and fascia down to the spinous processes. A curet was then applied to the lamina and radiographs were taken to confirm vertebral level. After radiographic position was confirmed, the posterior elements from the inferior half of L2 to the superior half of L3 were exposed in subperiosteal fashion using Bovie cautery, Ector, curettes and rongeurs to skeletonize posterior elements, taking care to preserve all facet joint capsules and the overlying muscle attachments. Self-retaining retractors were then placed for exposure. The operating microscope was brought into the field. Decompression was then begun. RIGHT hemilaminotomy, mesial facetectomy, foraminotomy was performed at L2-L3 sparing the spinous processes and posterior ligamentous structures. These were performed using the pneumatic [employer] drill with a matchstick drill bit, Kerrisons and curets. After removal of the ligamentum flavum, the RIGHT L3 nerve root was visualized and found to be draped over an inferiorly herniated and severely scarred down RIGHT L2-L3 disc. The nerve root was skeletonized from its takeoff from the central canal. The nerve root was gently retracted medially with a nerve root retractor. Microdiskectomy was then performed. Annulotomy was made with a #15 blade, an extensive amount disk material was then removed with a series of pituitaries, curettes and nerve hooks. After extensive preparation, the herniated disk as well as residual loose disk within the disk space was all removed. Inspection was performed medially, laterally, superiorly and inferiorly such that ultimately the posterior ridge of disc was flush residual posterior longitudinal ligament. The vertebral body was found to be flattened without any additionally ridging or bumps to irritate the nerve root. All excess of disk was irrigated away with antibiotic irrigation. A ball-tipped probe was also passed out the foramen and found to be completely free and not compressed. At this time, attention was then turned towards placement of the pedicle screws. The [employer] neuronavigation system was brought into the field. The reference frame was mounted to the L2 spinous process. A single high-definition acquisition spin was then taken with the areas of interest with respirations held. The appropriate L3 and L4 pedicle screws were then placed through bilateral paramedian sheela incisions. Small parasagittal incisions were made through the fascia, and the appropriate pedicle screws were placed through this fascial incision in a modified percutaneous approach. Specifically, a navigated jamishidi needle was used to start the hole. The hole was then tapped under navigation. An appropriate-length pedicle screw was placed under navigation. Each of these steps was interceded by palpation with a ball-tip probe to guarantee that there was no violation of the pedicle wall or deep cortex. Pedicle screw placement was done similarly in each pedicle. The screws were then connected using appropriately-sized rods of adequate length and with the correct orientation. The screws were then distracted to correct the deformity as well as provide indirect decompression to the L3-L4 foramen. Final tightening of setscrews was performed using appropriate instruments. Lateral radiograph was obtained to confirm appropriate placement and length of screws. A repeat fluoroscopy spin was obtained to confirm appropriate placement and length of screws. All instrumentation was confirmed to be placed appropriately. The wound was copiously irrigated with bacitracin irrigation. Hemostasis was achieved with bipolar electrocautery, thrombin-soaked Gelfoam and FloSeal. 1000 mg of vancomycin powder was then placed into the subfascial space. A 10-Bangladeshi round slippery Hemovac drain was placed underneath the fascia. Arthrodesis was then performed. The facets and cortical bone was decorticated from spinous process, lamina, facet, and transverse process. Morcellized autograft taken from the laminectomy were used for the arthrodesis. Closure was then commenced. The fascia was closed with 0 Vicryl in interrupted fashion in multiple layers. Dermis was closed with 2-0 Vicryl in interrupted fashion. Skin was approximated Mastisol, Steri-Strips, followed by Telfa. Hypafix dressing was used to secure the dressing and drain. All needle and sponge counts were correct. There were no complications during the surgery. The patient was then carefully rolled supine onto a hospital bed. The patient was revived, extubated and taken to recovery room in stable condition moving 4 extremities postoperatively at baseline strength. Dr. Jozef Simpson was scrubbed and present for the entire case. We discussed the completion of the case with the patient's family. They were very grateful for the care and information. All questions were answered.
[2018-09-06 09:00] VITALS: BP 126/63
--- NOTE | 2018-09-06 17:46 | Operative Report ---
DATE OF PROCEDURE: September 06, 2018 SURGEON: Cristobal HOSKINS D.P.M PEANUT GRADER SURGEON: GINO METZGER D.P.M PREOPERATIVE DIAGNOSES 1. Chronic stasis ulcer, right leg. 2. Abscess, right leg. POSTOPERATIVE DIAGNOSES 1. Chronic stasis ulcer, right leg. 2. Abscess, right leg. 3. Partial laceration of the soleus tendon. PROCEDURES 1. Incision and drainage of abscess with debridement of the wound. 2. Repair of the soleus tendon. DETAILS OF PROCEDURE: The patient was placed on the OR table in the prone position. The right lower extremity was prepped and draped in the usual manner. General anesthetic was administered and hemostasis accomplished using a pneumatic cuff set at 350 mmHg at thigh level. The necrotic tissue totally covering the wound was dissected away with a 15 blade. It was noted that there was again moderate bleeding and a lacerated peroneal tendon was identified. The more proximal portion was then tied off. At this time, the soleus tendon was also visualized, and it too had a partial laceration. Continued the debridement of the wound. There was an abscess on the lateral aspect and an I and D was done. The wound was then flushed extensively with Pulsavac. I then repaired the soleus tendon with 3-0 Vicryl. The wound was then flushed with sterile saline solution. Silvadene cream was applied. A sterile compression dressing which also consisted of an Unna boot was applied. The patient tolerated the procedure and anesthesia well, and left the OR to recovery in good condition with vital signs stable. Job#: [id number] NIDA HERZOG
== END | disposition home or self-care (01) ==
LOC: OR 05:12
PROVIDERS: ATTEND Podiatrist Foot & Ankle Surgery
DX: S86.821A Laceration of other muscle(s) and tendon(s) at lower leg level, right leg, initial encounter (principal); L02.415 Cutaneous abscess of right lower limb; I83.018 Varicose veins of right lower extremity with ulcer other part of lower leg; M10.9 Gout, unspecified; G47.33 Obstructive sleep apnea (adult) (pediatric); I25.10 Atherosclerotic heart disease of native coronary artery without angina pectoris; I10 Essential (primary) hypertension; E78.5 Hyperlipidemia, unspecified; M47.9 Spondylosis, unspecified; E11.9 Type 2 diabetes mellitus without complications; K57.90 Diverticulosis of intestine, part unspecified, without perforation or abscess without bleeding; K51.90 Ulcerative colitis, unspecified, without complications; Z88.6 Allergy status to analgesic agent; Z88.2 Allergy status to sulfonamides; Z88.8 Allergy status to other drugs, medicaments and biological substances; X58.XXXA Exposure to other specified factors, initial encounter; Z01.810 Encounter for preprocedural cardiovascular examination; Z01.812 Encounter for preprocedural laboratory examination; Z01.818 Encounter for other preprocedural examination; Z79.82 Long term (current) use of aspirin; Z79.4 Long term (current) use of insulin; Z86.73 Personal history of transient ischemic attack (TIA), and cerebral infarction without residual deficits; Z95.5 Presence of coronary angioplasty implant and graft; Z87.891 Personal history of nicotine dependence
CPT/HCPCS: 27658; 36415 ×2; 71046; 80048; 82948; 85025; 87071; 87075; 87205; 93005; J1100; J1885; J2001; J2405; J2704

== ENCOUNTER 2018-11-05 18:17 | Inpatient (IN) | payer MEDICARE ==
[~2018-11-05] VITALS: Ht 188 cm; Wt 101.6 kg
[~2018-11-05 18:17] MED LIST changes: -BACITRACIN 50,000 UNIT VIAL ONE; -BUPIVACAINE HCL 0.5% 10ML MPF VIAL INJ ONE; -CLINDAMYCIN PHOS 900MG/ 50ML 50 ML IV ONE; -COQ-1030 MG; +COQ-1030 MG PO; -DEXAMETHASONE SOD PHOS INJ 4 MG/ML VIAL ONE; -FENTANYL CITRATE/PF 100MCG/2 ML INJ ONE; -KETOROLAC TROMETHAMINE 30 MG/ML VIAL ONE; -LIALDA1.2 GM; +LIALDA1.2 GM PO; -LIDOCAINE HCL 2% LOCAL INJ 5 ML SDV VIAL INJ ONE; -MULTIVITAMINS1 EAC7; +MULTIVITAMINS1 EAC7 PO; -OMEGA-31000 MG; +OMEGA-31000 MG PO; -ONDANSETRON HCL INJ 2 MG/ML VIAL ONE; -PROPOFOL IV EMULSION 10 MG/ML 20 ML VIAL ONE; -SEVOFLURANE INHAL SOLN 250 ML PEN BTL ONE; -SILVER SULFADIAZINE 50GM CREAM TOP ONE; -SUCCINYLCHOLINE 200 MG/10 ML SYR ONE
[2018-11-05] MEDS ORDERED: PIPER-TAZ 3.375 GM 50 ML IV STA (18:57)
[2018-11-05] MEDS ORDERED: ONDANSETRON HCL INJ 2MG/ML 2ML 2 MG/ML VIAL IV STA (18:57)
[2018-11-05] MEDS ORDERED: IBUPROFEN 600 MG TAB PO STA (18:57)
[2018-11-05] MEDS ORDERED: SODIUM CHLORIDE 0.9% 1000ML 1,000 ML IV STA (18:57)
[2018-11-05 19:14] LABS: BASOPHILS % 0.3 % (0.0-1.0); EOSINOPHILS # (AUTO) 0.1 (0.0-0.4); EOSINOPHILS % 0.9 % (0.0-6.0); HEMATOCRIT 45.2 % (38.2-49.6); HEMOGLOBIN 15.5 g/dL (14.0-18.0); LYMPHOCYTES # (AUTO) 0.4 (1.0-3.2); LYMPHOCYTES % 3.6 % (18.0-39.1); MEAN CORPUSCULAR HGB CONC 34.3 g/dL (31-35); MEAN CORPUSCULAR VOLUME 87.4 fL (81-99); MONOCYTES # (AUTO) 0.3 (0.2-0.8); MONOCYTES % 3.3 % (4.4-11.3); NEUTROPHILS # (AUTO) 9.6 (2.1-6.9); NEUTROPHILS % 91.5 % (38.7-80.0); PLATELET COUNT 177 x10e3/uL (140-360); RED BLOOD COUNT 5.17 x10e6/uL (4.3-5.7); RED CELL DISTRIBUTION WIDTH 13.7 % (11.7-14.4)
[2018-11-05 19:28] LABS: BILIRUBIN,URINE 1+ (NEGATIVE); CLARITY,URINE SL CLOUDY (CLEAR); COLOR,URINE YELLOW (YELLOW); KETONES,URINE NEGATIVE (NEGATIVE); LEUKOCYTE ESTERASE ,URINE NEGATIVE (NEGATIVE); NITRITE,URINE NEGATIVE (NEGATIVE); PROTEIN,URINE DIPSTICK 2+ (NEGATIVE); URINE UROBILINOGEN 0.2 mg/dL (0.2 - 1)
[2018-11-05] MEDS ORDERED: VANCOMYCIN 1GM/NS 250 ML 250 ML IV ONE (19:30)
[2018-11-05 19:32] LABS: ALANINE AMINOTRANSFERASE 26 IU/L (0-55); ALBUMIN 3.6 g/dL (3.5-5.0); ALKALINE PHOSPHATASE 93 IU/L (40-150); ANION GAP 13.4 mmol/L (8-16); BLOOD UREA NITROGEN 23 mg/dL (7-26); BUN/CREATININE RATIO 24 (6-25); CALCIUM 9.4 mg/dL (8.4-10.2); CARBON DIOXIDE 28 mmol/L (22-29); CHLORIDE 101 mmol/L (98-107); CREATININE, SERUM 0.94 mg/dL (0.72-1.25); EST GLOMERULAR FILTRATION RATE > 60 ML/MIN (60-); GLUCOSE 157 mg/dL (74-118); POTASSIUM 3.4 mmol/L (3.5-5.1); SODIUM 139 mmol/L (136-145)
[2018-11-05 19:35] LABS: AMORPHOUS SEDIMENT,URINE MANY (FEW); BACTERIA,URINE FEW /HPF; EPITHELIAL CELLS,URINE MODERATE /LPF
[2018-11-05] MEDS ORDERED: ONDANSETRON HCL INJ 2MG/ML 2ML 2 MG/ML VIAL ONE (22:07)
[2018-11-05] MEDS ORDERED: GUAIFENESIN 600 MG TAB ONE (22:07)
[2018-11-05] MEDS ORDERED: SODIUM CHLORIDE 0.9% 1000ML 1,000 ML ONE (22:08)
[2018-11-05] MEDS ORDERED: IBUPROFEN 600 MG TAB ONE (22:08)
[2018-11-05] MEDS ORDERED: MORPHINE SULFATE 2 MG/ML SYR 1ML IV STA (22:16)
[2018-11-05] MEDS ORDERED: MORPHINE SULFATE INJ 4 MG/ML INJ 1ML ONE (22:32)
[2018-11-05] MEDS ORDERED: MORPHINE SULFATE INJ 4 MG/ML INJ 1ML IV STA (22:37)
--- NOTE | 2018-11-06 00:18 | Diagnostic Imaging Report ---
EXAMINATION: CHEST 2 VIEWS INDICATION: Fever of unknown origin COMPARISON: Chest x-ray 09/04/2018 FINDINGS: PA and lateral views TUBES and LINES: None. LUNGS: Lungs are well inflated. Left basilar hazy opacity appears stable from 09/04/2018 suggesting atelectasis or scarring. There is no evidence of pulmonary edema. PLEURA: No pleural effusion or pneumothorax. HEART AND MEDIASTINUM: The cardiomediastinal silhouette is unremarkable. BONES AND SOFT TISSUES: No acute osseous lesion. Soft tissues are unremarkable. UPPER ABDOMEN: No free air under the diaphragm. IMPRESSION: No acute thoracic abnormality. Signed by: DR. Jong Martin MD on 11/06/2018 12:15 AM
[2018-11-06] MEDS ORDERED: ACETAMINOPHEN/CODEINE 300MG - 30MG TAB PO ONE (01:30)
[2018-11-06 01:35] LABS: INR 1.06; PROTHROMBIN TIME 14.3 seconds (11.9-14.5)
[2018-11-06 01:36] LABS: PARTIAL THROMBOPLASTIN TIME 35.2 seconds (23.8-35.5)
[2018-11-06] MEDS ORDERED: SODIUM CHLORIDE 0.9% 50ML 50 ML ONE (02:24)
[2018-11-06] MEDS ORDERED: IOPAMIDOL 370 MG/ML 200 ML INFUS..BTL INJ ONE (02:24)
[2018-11-06] MEDS ORDERED: DOXYCYCLINE HY100 MG PO (03:09)
--- NOTE | 2018-11-06 03:37 | Diagnostic Imaging Report ---
EXAM: CT Chest WITH contrast (PE Protocol) INDICATION: Shortness of breath. Fever, nausea, vomiting ^pe protocol ^[id number] ^[id number] COMPARISON: Chest x-ray 11/05/2018 TECHNIQUE: Chest was scanned utilizing a multidetector helical scanner from the lung apex through the level of the diaphragm after administration of IV contrast. Thin section reconstructions were obtained with special concentration on the pulmonary arteries. Coronal and sagittal reformations were obtained. Pulmonary embolism protocol was performed. IV CONTRAST: 100 mL of Isovue-370 COMPLICATIONS: None RADIATION DOSE: Total DLP: 636.3 mGy*cm Estimated effective dose: (DLP x 0.014 x size factor) mSv Dose modulation, iterative reconstruction, and/or weight based adjustment of the mA/kV was utilized to reduce the radiation dose to as low as reasonably achievable. FINDINGS: LINES/ TUBES: None. LUNGS AND AIRWAYS: No filling defect is identified within the pulmonary arteries to the segmental level. Right lower lobe 6 mm nodule (series 3 image 53). Right middle lobe 4 mm nodule (image 59). Bilateral lower lobe atelectasis, left greater than right. Airways are normal. PLEURA: The pleural spaces are clear. HEART AND MEDIASTINUM: The thyroid gland is normal. No mediastinal, hilar or axillary lymphadenopathy. The heart is mildly enlarged.. There is no pericardial effusion. Coronary artery and aortic calcifications. Main pulmonary artery measures 3.6 cm in diameter and the ascending aorta measures 3.7 cm. UPPER ABDOMEN: Hydropic gallbladder measuring 6 x 11.9 cm. No radiopaque stones, wall thickening, or pericholecystic stranding. Nonobstructing 6 mm stone in the superior pole of the left kidney. Colonic diverticula in the visualized portions of the colon without evidence of diverticulitis. BONES: There are degenerative changes in the thoracic spine. SOFT TISSUES: Unremarkable. IMPRESSION: No pulmonary emboli. Bilateral lower lobe atelectasis, left greater than right. Few pulmonary nodules measuring up to 6 mm. Consider follow-up according to Fleischner Society [address] in 3-6 months. Enlarged pulmonary artery suggestive of pulmonary hypertension. Gallbladder hydrops. Left nephrolithiasis. Colonic diverticulosis. Signed by: DR. Jong Martin MD on 11/06/2018 3:33 AM
[2018-11-06] MEDS ORDERED: ONDANSETRON HCL INJ 2MG/ML 2ML 2 MG/ML VIAL IV PRN (04:15)
[2018-11-06] MEDS ORDERED: DEXTROSE 50% SYRINGE 50 ML IV PRN (04:15)
[2018-11-06] MEDS ORDERED: MORPHINE SULFATE 2 MG/ML SYR 1ML IV PRN (04:15)
[2018-11-06] MEDS: SODIUM CHLORIDE 0.9% 1000ML 1,000 ML IV SCH ×2 (04:24→15:44)
[2018-11-06] MEDS: PIPER-TAZ 3.375 GM 50 ML IV SCH ×3 (05:27→17:45)
[2018-11-06] MEDS: VANCOMYCIN 1GM/NS 250 ML 250 ML IV SCH ×2 (05:27→17:38)
--- NOTE | 2018-11-06 06:36 | NUR ---
PT PLACED ONTO HOSPITAL BED, VSS, NO COMPLAINTS AT THIS TIME
--- NOTE | 2018-11-06 07:00 | NUR ---
REPORT TO DONAVAN HAYDEN
[2018-11-06] MEDS: INSULIN LISPRO 100 UNIT/1 ML 3ML VIAL SQ SCH ×4 (07:36→20:53)
--- NOTE | 2018-11-06 09:09 | NUR ---
PER DR Rasta VELAZCO ORDER NORCO 10-325 1 TAB PO Q6H PRN PAIN
[2018-11-06] MEDS ORDERED: HYDROCODONE/APAP 10MG-325MG TAB PO PRN (09:15)
[2018-11-06] MEDS ORDERED: ACETAMINOPHEN/CODEINE 300MG - 30MG TAB PO PRN (11:30)
--- NOTE | 2018-11-06 11:35 | NUR ---
PER DR VELAZCO ORDER WOUND CONSULT, WOUND CULTURE, URINE CULTURE, AND TYLENOL #3 2 TABS PO Q6H PRN PAIN
--- NOTE | 2018-11-06 12:52 | NUR ---
PER DR Rasta VELAZCO GIVE DILAUDID 3 MG IV Q4H PRN PAIN AND ZOFRAN 4 MG IV Q4H PRN NAUSEA
[2018-11-06] MEDS ORDERED: HYDROMORPHONE 1MG/1ML INJ IV PRN (13:00)
[2018-11-06] MEDS ORDERED: HYDROMORPHONE 2MG/ML 2 MG/ML ML IV PRN (13:45)
[2018-11-06] MEDS: ONDANSETRON HCL INJ 2MG/ML 2ML 2 MG/ML VIAL IV PRN ×2 (14:52→20:51)
[2018-11-06 15:00] VITALS: BP 153/82
--- NOTE | 2018-11-06 15:00 | NUR ---
Received pt from ER at this time. 0 s/s of acute distress noted. Denies any pain at this time. Pt was medicated with dilaudid in ER before coming to floor. Breaths are even and unlabored.
[2018-11-06 16:04] VITALS: BP 153/82
--- NOTE | 2018-11-06 18:00 | NUR ---
Pt became diaphoretic and nauseas after dose of dilaudid. Dr. Desai notified and received new orders to discontinue dilaudid and start Morphine IV q4hrs. Pt home medications have also been restarted.
[2018-11-06] MEDS ORDERED: MORPHINE SULFATE INJ 4 MG/ML INJ 1ML IV PRN (19:00)
--- NOTE | 2018-11-06 19:20 | NUR ---
Received report from previous nurse. Patient in no pain or distress. call light within reach.
[2018-11-06 20:00] VITALS: BP 166/44
[2018-11-06] MEDS: INSULIN GLARGINE 100 UNITS/ML VIAL SQ SCH (20:53)
[2018-11-06] MEDS ORDERED: INSULIN GLARGINE 100 UNITS/ML VIAL SQ SCH (21:00)
[2018-11-06] MEDS ORDERED: SIMVASTATIN 20 MG TAB PO SCH (21:00)
[2018-11-06] MEDS: FINASTERIDE 5 MG TAB PO SCH (21:03)
[2018-11-06] MEDS: LOSARTAN POTASSIUM 100 MG TAB PO SCH (21:03)
--- NOTE | 2018-11-06 21:30 | NUR ---
Called Dr. Rasta Desai because patient wants medication for constipation. Patient prefers to have a suppository. Waiting for Dr. Rasta Desai to call back.
[2018-11-06] MEDS: MORPHINE SULFATE INJ 4 MG/ML INJ 1ML IV PRN (22:41)
[2018-11-07] VITALS (8 sets, daily range): BP systolic 138–155; BP diastolic 71–79
[2018-11-07] MEDS: PIPER-TAZ 3.375 GM 50 ML IV SCH ×5 (00:09→23:45)
[2018-11-07] MEDS: MORPHINE SULFATE INJ 4 MG/ML INJ 1ML IV PRN ×3 (04:06→19:59)
[2018-11-07] MEDS: ONDANSETRON HCL INJ 2MG/ML 2ML 2 MG/ML VIAL IV PRN ×3 (04:15→20:00)
[2018-11-07] MEDS: SODIUM CHLORIDE 0.9% 1000ML 1,000 ML IV SCH ×4 (04:30→20:01)
[2018-11-07 06:01] LABS: BASOPHILS % 0.7 % (0.0-1.0); EOSINOPHILS # (AUTO) 0.1 (0.0-0.4); EOSINOPHILS % 3.2 % (0.0-6.0); HEMATOCRIT 37.6 % (38.2-49.6); HEMOGLOBIN 12.4 g/dL (14.0-18.0); LYMPHOCYTES % 21.7 % (18.0-39.1); MEAN CORPUSCULAR HEMOGLOBIN 30.1 pg (28-32); MEAN CORPUSCULAR VOLUME 91.3 fL (81-99); MONOCYTES # (AUTO) 0.6 (0.2-0.8); MONOCYTES % 12.4 % (4.4-11.3); NEUTROPHILS # (AUTO) 2.7 (2.1-6.9); NEUTROPHILS % 61.5 % (38.7-80.0); PLATELET COUNT 132 x10e3/uL (140-360); RED BLOOD COUNT 4.12 x10e6/uL (4.3-5.7)
[2018-11-07 06:41] LABS: ANION GAP 8.8 mmol/L (8-16); BLOOD UREA NITROGEN 18 mg/dL (7-26); BUN/CREATININE RATIO 22 (6-25); CALCIUM 8.3 mg/dL (8.4-10.2); CARBON DIOXIDE 28 mmol/L (22-29); CHLORIDE 103 mmol/L (98-107); CREATININE, SERUM 0.81 mg/dL (0.72-1.25); EST GLOMERULAR FILTRATION RATE > 60 ML/MIN (60-); GLUCOSE 101 mg/dL (74-118); POTASSIUM 3.8 mmol/L (3.5-5.1); SODIUM 136 mmol/L (136-145)
--- NOTE | 2018-11-07 07:10 | NUR ---
Gave report to oncoming nurse. No pain or distress. call light within reach.
[2018-11-07] MEDS: INSULIN LISPRO 100 UNIT/1 ML 3ML VIAL SQ SCH ×4 (07:30→21:00)
[2018-11-07] MEDS ORDERED: MAGNESIUM HYDROXIDE 30 ML UDC PO ONE (07:30)
[2018-11-07] MEDS: VANCOMYCIN 1GM/NS 250 ML 250 ML IV SCH ×2 (08:28→21:00)
[2018-11-07] MEDS: ASPIRIN 81 MG CHEW TAB PO SCH (08:28)
[2018-11-07] MEDS: GLIPIZIDE 5 MG TAB ER PO SCH (08:29)
[2018-11-07] MEDS: TAMSULOSIN HCL 0.4 MG CAP PO SCH (08:29)
[2018-11-07] MEDS: LORATADINE 10 MG TAB PO SCH (08:29)
[2018-11-07] MEDS: OMEGA 3 POLYUNSAT FATTY ACIDS 1000 MG SOFTGEL PO SCH (08:29)
[2018-11-07] MEDS: ALLOPURINOL 300 MG TAB PO SCH (08:29)
[2018-11-07] MEDS: AMLODIPINE BESYLATE 5 MG TAB PO SCH (08:29)
[2018-11-07] MEDS: MULTIVITAMINS/MINERALS TAB PO SCH (08:29)
[2018-11-07] MEDS: NON-FORMULARY MEDICATION (Lovastatin 20 MG) PO SCH (09:00)
[2018-11-07] MEDS: FLUTICASONE PROPIONATE NASAL SPRAY NS SCH (09:00)
[2018-11-07] MEDS ORDERED: NON-FORMULARY MEDICATION (Cetirizine Hcl 10 MG) PO SCH (09:00)
[2018-11-07] MEDS: METOPROLOL TARTRATE 25 MG TAB PO SCH ×2 (09:00→17:13)
[2018-11-07] MEDS ORDERED: MESALAMINE 1.2 GM PO SCH (09:00)
[2018-11-07] MEDS: UBIDECARENONE 30 MG PO SCH (09:00)
[2018-11-07] MEDS ORDERED: UBIDECARENONE 30 MG PO SCH (09:00)
[2018-11-07] MEDS: MESALAMINE 1.2 GM PO SCH ×2 (09:00→17:12)
[2018-11-07] MEDS ORDERED: NON-FORMULARY MEDICATION (Lovastatin 20 MG) PO SCH (09:00)
--- NOTE | 2018-11-07 12:07 | NUR ---
WOUND CARE CONSULTATION - INITIAL EVALUATION Patient admitted to ER for RLE pain, N/V and Fever Dr. Carmelita NICOLE on case and managing care of leg ulcer. LABS: WBC4.42 HGB12.4 KTS093 ALB3.6 HbA1c 6.6 on 04/12/11 Wound Cx Done- results pending Wound Care Consulted for RLE Ulcer - Deferred RLE Ulcer assessment per Dr. Lama's Request at this time. Will follow upon request. Patient Visit: Pleasant 73 year old male in good spirits RLE Dressing performed today by Dr. Kelby NICOLE - CDI. Rome Score 23 No Pressure ulcers identified. Visco Mattress Conservative PUP Active. Thank you for consulting with Wound Care. Addendum: 11/07/18 at 1215 by Marino Victoria RN Amended: Links added.
--- NOTE | 2018-11-07 15:45 | Consultation ---
DATE OF CONSULTATION: 11/07/2018 HISTORY OF PRESENT ILLNESS: This is a 73-year-old male with past medical history of diabetes, hypertension, peripheral vascular disease, and venous stasis, who was admitted to the emergency room yesterday for a right lower extremity venous stasis ulcer with pain and infection. He is well known to the Podiatry Service. He was recently seen by his primary care doctor where labs were taken and he had elevated white blood cell count of 17 and was told to go to the emergency room to be admitted and placed on IV antibiotics. The patient was admitted to the emergency room yesterday. The patient relates that he was given Dilaudid and became diaphoretic and the Dilaudid was discontinued. He is currently taking IV morphine and relates that his pain is much better controlled. He currently denies fever or chills, but is nauseated without vomiting. He does have lack of appetite. No other p.o. complaints at this time. PAST MEDICAL HISTORY: Type 2 diabetes, hypertension, gout, BPH, and cardiac stents. PAST SURGICAL HISTORY: Tonsillectomy, cardiac stents, back surgery, right lower extremity venous ablation, and right lower extremity debridement. MEDICATIONS: Per the chart. ALLERGIES: ATORVASTATIN, HYDROMORPHONE, MORPHINE, PIOGLITAZONE, ROSUVASTATIN, SULFACETAMIDE, AND SULFUR. PHYSICAL EXAMINATION: GENERAL: Alert and oriented x3, in no apparent distress. VITALS SIGNS: Today, temperature is 97.0, heart rate 51, respiratory rate 16, blood pressure 142/79, and pulse ox is 96% on 2 L nasal cannula. VASCULAR: Dorsalis pedis and posterior tibial pulses are palpable. Capillary refill time approximately 3 to 4 seconds to all lower extremity digits. Minimal periwound erythema, edema, and warmth noted to the right lower extremity. Mild +1 pitting edema is noted. NEUROLOGIC: Sensation is intact to the level of digits. MUSCULOSKELETAL: Pain on palpation along the ulceration. DERMATOLOGICAL: Approximately 4 cm x 3 cm open fibrotic ulceration is noted to the posterior aspect of the patient's right leg. The wound is approximately 50% fibrotic, 50% granular. There are improving local acute signs of infection to the periwound. No active drainage is noted. LABORATORY DATA: White blood cell count is 4.42, hemoglobin 12.4, hematocrit 37.6, and platelet count 132. Sodium is 136, potassium 3.8, chloride 103, CO2 of 28, BUN 18, and creatinine 0.81. Chest CT, no pulmonary emboli, bilateral lower lobe atelectasis, pulmonary nodules, pulmonary hypertension, chronic diverticulitis, left nephrolithiasis, and gallbladder hydrops. ASSESSMENT: 1. Right leg ulcer, venous stasis. 2. Type 2 diabetes. 3. Hypertension. PLAN: The patient was seen and evaluated, discussed condition and treatment options with the patient in detail. At this point, the patient is afebrile with white blood cell count of 4. The wound appears to have improved local acute signs of infection. The patient relates that his pain is improving as well. The dressing was changed today with a Xeroform, 4x4s, Kerlix, and KERI wrap for compression. Instructed the patient to keep lower extremity elevated. Wound does not require debridement at this time. We will plan for 1 to 2 days of IV antibiotics and wound care prior to discharge. The Podiatry Service will continue to monitor as an inpatient. COREY Bennett/LORENA /[id number]
[2018-11-07] MEDS: LOSARTAN POTASSIUM 100 MG TAB PO SCH (21:00)
[2018-11-07] MEDS: INSULIN GLARGINE 100 UNITS/ML VIAL SQ SCH (21:00)
[2018-11-07] MEDS: FINASTERIDE 5 MG TAB PO SCH (21:00)
[2018-11-08] VITALS (8 sets, daily range): BP systolic 133–184; BP diastolic 66–106
--- NOTE | 2018-11-08 | NUR ---
Patient AAOx3. at the bedside. Pt c/o pain 6-7. Pain meds given x2 for pain to lower leg. Patient had a vanco trough = 8.5 in range to give. Vanco given. BS = 147 insulin given as ordered by MD. Dressing to leg dry and intact.
[2018-11-08] MEDS: MORPHINE SULFATE INJ 4 MG/ML INJ 1ML IV PRN ×4 (00:08→23:02)
[2018-11-08] MEDS: ONDANSETRON HCL INJ 2MG/ML 2ML 2 MG/ML VIAL IV PRN ×4 (00:09→23:03)
[2018-11-08] MEDS: SODIUM CHLORIDE 0.9% 1000ML 1,000 ML IV SCH ×3 (05:40→20:01)
[2018-11-08] MEDS: PIPER-TAZ 3.375 GM 50 ML IV SCH ×3 (05:41→17:15)
--- NOTE | 2018-11-08 06:32 | NUR ---
Patient resting quitly at this time. No noted pain or discomfort noted. Continue monitor.
[2018-11-08] MEDS: INSULIN LISPRO 100 UNIT/1 ML 3ML VIAL SQ SCH ×4 (07:30→21:00)
[2018-11-08] MEDS: NON-FORMULARY MEDICATION (Lovastatin 20 MG) PO SCH (08:15)
[2018-11-08] MEDS: FLUTICASONE PROPIONATE NASAL SPRAY NS SCH (08:15)
[2018-11-08] MEDS: VANCOMYCIN 1GM/NS 250 ML 250 ML IV SCH ×2 (08:15→21:00)
[2018-11-08] MEDS: UBIDECARENONE 30 MG PO SCH (08:15)
[2018-11-08] MEDS: MESALAMINE 1.2 GM PO SCH ×2 (09:09→17:50)
[2018-11-08] MEDS: ASPIRIN 81 MG CHEW TAB PO SCH (09:09)
[2018-11-08] MEDS: LORATADINE 10 MG TAB PO SCH (09:09)
[2018-11-08] MEDS: MULTIVITAMINS/MINERALS TAB PO SCH (09:10)
[2018-11-08] MEDS: OMEGA 3 POLYUNSAT FATTY ACIDS 1000 MG SOFTGEL PO SCH (09:10)
[2018-11-08] MEDS: GLIPIZIDE 5 MG TAB ER PO SCH (09:10)
[2018-11-08] MEDS: ALLOPURINOL 300 MG TAB PO SCH (09:10)
[2018-11-08] MEDS: TAMSULOSIN HCL 0.4 MG CAP PO SCH (09:10)
[2018-11-08] MEDS: AMLODIPINE BESYLATE 5 MG TAB PO SCH (09:12)
[2018-11-08] MEDS: METOPROLOL TARTRATE 25 MG TAB PO SCH ×2 (09:12→17:00)
--- NOTE | 2018-11-08 12:25 | Progress Note ---
DATE: SUBJECTIVE: This is a 73-year-old male with past medical history of diabetes, hypertension, peripheral vascular disease with venous stasis, who was admitted to the emergency room two days ago for worsening infection to his right leg. The patient relates moderate pain to his right leg; however, does feel improved over the past 2 days. Currently denies nausea, vomiting, fever, chills, chest pain, or shortness of breath. No other pedal complaints at this time. OBJECTIVE: VITAL SIGNS: Today, temperature is 98.3, heart rate 57, respiratory rate 20, blood pressure 167/79, and pulse ox is 95% on room air. PROBLEM-FOCUSED LOWER EXTREMITY PHYSICAL EXAM: VASCULAR: Dorsalis pedis and posterior tibial pulses are palpable. Capillary refill time approximately 3 to 4 seconds to all lower extremity digits. Minimal periwound erythema, edema, and warmth noted to the right lower extremity. Mild +1 pitting edema is noted to the periphery of the posterior right leg ulceration. NEUROLOGIC: Sensation is intact to the level of digits. MUSCULOSKELETAL: Moderate pain on palpation along the ulceration. DERMATOLOGICAL: Approximately 4 cm x 3 cm open fibrotic ulceration is noted to the posterior aspect of the patient's right leg. Wound is approximately 50% fibrotic and 50% granular. There are improving local acute signs of infection to the periwound. Mild maceration is present. Gauze was soaked upon dressing change. LABORATORY DATA: New labs for today; blood glucose 185. ASSESSMENT: 1. Right leg ulcer, venous stasis. 2. Type 2 diabetes. 3. Hypertension. PLAN: The patient was seen and evaluated, discussed condition and treatment options with the patient in detail. At this point, the patient continues to be afebrile with no leukocytosis. The wound continues to improve from local acute signs of infection standpoint. The patient continues with pain to the ulceration, but is stable at this time. Dressing change was changed today with Xeroform, 4x4s, Kerlix, and an KERI wrap for compression. Since wound has significantly improved in 2 to 3 days with IV antibiotics, we will consult case management for at home IV antibiotics. We will also consult Vascular for evaluation of venous stasis. Podiatry Service will continue to monitor as an inpatient. COREY Bennett/VICENTAL /[id number]
--- NOTE | 2018-11-08 14:49 | NUR ---
REC'D ORDER FROM DR METZGER TO EVALUATE FOR HOOME IV ABX NO SPECIFIC ABX ORDERED YET NOTE ON FRONT OF CHART FOR DR METZGER TO ENTER SPECIFIC IV ABX SO THEY CAN BE ARRANGED
--- NOTE | 2018-11-08 16:57 | NUR ---
CALL PLACED OUT TO ALCON PETERS REGARDING PATIENT'S HR AND MEDICATION- AWAITING CALLBACK.
[2018-11-08] MEDS: HYDRALAZINE HCL 20 MG/ML VIAL IV PRN (17:49)
--- NOTE | 2018-11-08 19:32 | NUR ---
Received change of shift report from AM nurse. Rounds completed.
--- NOTE | 2018-11-08 19:49 | NUR ---
PATIENT RESTING IN BED-IN STABLE CONDITION WITH NO S/S OF RESPIRATORY DISTRESS. IV FLUIDS INFUSING. PRESENT IN ROOM. CALL LIGHT IS WITHIN REACH, INSTRUCTED TO CALL FOR ASSISTANCE NEEDED. REPORT GIVEN TO ONCOMING NURSE.
[2018-11-08] MEDS: INSULIN GLARGINE 100 UNITS/ML VIAL SQ SCH (21:00)
[2018-11-08] MEDS: LOSARTAN POTASSIUM 100 MG TAB PO SCH (21:00)
[2018-11-08] MEDS: FINASTERIDE 5 MG TAB PO SCH (21:38)
[2018-11-09] VITALS (7 sets, daily range): BP systolic 155–170; BP diastolic 75–87
--- NOTE | 2018-11-09 01:52 | Consultation ---
DATE OF CONSULTATION: Cardiology consultation. REASON FOR CONSULTATION: Lower extremity wound and venous stasis. HISTORY OF PRESENT ILLNESS: This is a 73-year-old man with a history of coronary artery disease, status post percutaneous coronary intervention, hypertension, hyperlipidemia, diabetes mellitus, lower extremity venous insufficiency, status post ablation, who presented with worsening of the right lower extremity posterior wound. The patient was admitted due to an elevated white count and lower extremity wound and is receiving IV antibiotics. He denies any other cardiovascular symptoms. We have been asked to evaluate the patient for his ongoing vascular needs. REVIEW OF SYSTEMS: A 12-point review of system was conducted, is negative as stated above in the HPI. PAST MEDICAL HISTORY: As stated above in the HPI. PAST SURGICAL HISTORY: Local wound debridements, percutaneous coronary intervention. PAST FAMILY HISTORY: No premature CAD. SOCIAL HISTORY: No illicit drug use or tobacco use. ALLERGIES: SEE MEDICATION CHART. MEDICATIONS: See medication reconciliation form. PHYSICAL EXAMINATION: VITAL SIGNS: Temperature is 97.1, heart rate is 51, respirations are 20, blood pressure is 184/106, and oxygen saturation is 98% on room air. GENERAL: He is well-appearing and well-built male, lying comfortably in bed. HEAD: Normocephalic and atraumatic. EYES: Extraocular movements are intact. Conjunctivae are clear. NECK: No JVD. No bruits. CARDIOVASCULAR: Regular rate and rhythm. No murmurs. LUNGS: Clear to auscultation. ABDOMEN: Soft, nontender, and nondistended. EXTREMITIES: There is a right lower extremity posterior wound that is wrapped. There is 1+ edema. IMPRESSION: 1. Lower extremity wound. 2. Diabetes mellitus. 3. Hypertension. 4. Hyperlipidemia. 5. Venous insufficiency. RECOMMENDATIONS: Continue local wound debridement and therapy and intravenous antibiotics. The patient has residual venous insufficiency that will need to be treated; however, this can be done as an outpatient. The patient had no arterial disease on recent arterial Doppler. Thank you for the consult. DO NALLELY Felton/MODL /[id number]
[2018-11-09] MEDS: SODIUM CHLORIDE 0.9% 1000ML 1,000 ML IV SCH ×2 (04:01→17:31)
[2018-11-09] MEDS: PIPER-TAZ 3.375 GM 50 ML IV SCH ×4 (06:00→17:31)
--- NOTE | 2018-11-09 07:20 | NUR ---
PATIENT IN STABLE CONDITION WITH NO S/S OF RESPIRATORY DISTRESS. NO PAIN VOICED. IV FLUIDS INFUSING. PRESENT IN THE ROOM. CALL LIGHT IS WITHIN REACH, INSTRUCTED TO CALL FOR ASSISTANCE NEEDED.
[2018-11-09] MEDS: ONDANSETRON HCL INJ 2MG/ML 2ML 2 MG/ML VIAL IV PRN ×2 (07:27→15:21)
[2018-11-09] MEDS: MORPHINE SULFATE INJ 4 MG/ML INJ 1ML IV PRN ×3 (07:27→22:31)
[2018-11-09] MEDS: INSULIN LISPRO 100 UNIT/1 ML 3ML VIAL SQ SCH ×4 (07:30→22:30)
[2018-11-09] MEDS: UBIDECARENONE 30 MG PO SCH (09:00)
[2018-11-09] MEDS: NON-FORMULARY MEDICATION (Lovastatin 20 MG) PO SCH (09:00)
[2018-11-09] MEDS: OMEGA 3 POLYUNSAT FATTY ACIDS 1000 MG SOFTGEL PO SCH (09:19)
[2018-11-09] MEDS: MESALAMINE 1.2 GM PO SCH ×2 (09:19→18:02)
[2018-11-09] MEDS: ASPIRIN 81 MG CHEW TAB PO SCH (09:19)
[2018-11-09] MEDS: METOPROLOL TARTRATE 25 MG TAB PO SCH ×2 (09:19→16:30)
[2018-11-09] MEDS: TAMSULOSIN HCL 0.4 MG CAP PO SCH (09:19)
[2018-11-09] MEDS: AMLODIPINE BESYLATE 5 MG TAB PO SCH (09:19)
[2018-11-09] MEDS: MULTIVITAMINS/MINERALS TAB PO SCH (09:19)
[2018-11-09] MEDS: ALLOPURINOL 300 MG TAB PO SCH (09:19)
[2018-11-09] MEDS: GLIPIZIDE 5 MG TAB ER PO SCH (09:19)
[2018-11-09] MEDS: LORATADINE 10 MG TAB PO SCH (09:19)
[2018-11-09] MEDS: FLUTICASONE PROPIONATE NASAL SPRAY NS SCH (09:22)
--- NOTE | 2018-11-09 09:32 | NUR ---
CALL PLACED OUT TO DR. VELAZCO REGARDING CRITICAL VANCO TROUGH OF 10.6- AWAITING CALLBACK.
[2018-11-09] MEDS: VANCOMYCIN 1GM/NS 250 ML 250 ML IV SCH ×2 (10:37→22:30)
--- NOTE | 2018-11-09 14:36 | Progress Note ---
DATE: 11/09/2018 Cardiology Progress Note SUBJECTIVE: No major events overnight. OBJECTIVE: VITAL SIGNS: Temperature 97.2, pulse 64, respiratory rate 18, blood pressure 159/87, and saturating 96% on room air. GENERAL: Well developed, well nourished, in no acute distress. CARDIOVASCULAR: Regular rate and rhythm. No murmurs, rubs, or gallops. Palpable carotid pulses. Palpable radial pulses. LUNGS: Clear to auscultation bilaterally. ABDOMEN: Obese, soft, nontender, nondistended. No masses. NEURO AND PSYCH: Alert and oriented to person, place, and time. Normal affect. CARDIOVASCULAR MEDICATIONS: Reviewed. LABORATORY DATA: Reviewed. ASSESSMENT: 1. Lower extremity wounds. 2. Diabetes. 3. Hypertension. 4. Hyperlipidemia. 5. Venous insufficiency. RECOMMENDATIONS: Continue wound care with debridement, dressings, and antibiotics per Primary team. He has normal arterial Dopplers in both legs, has venous insufficiency that is residual, which will need to be treated as an outpatient to aid with wound healing. Thank you for this consult. We will continue to follow. MD LIBRA Castillo/LORENA /[id number]
--- NOTE | 2018-11-09 14:41 | Progress Note ---
DATE: 11/09/2018 SUBJECTIVE: This is a 73-year-old male with past medical history of type 2 diabetes, peripheral vascular disease with venous stasis, who was admitted through the emergency room three days ago for worsening infection to his right leg. The patient relates that his pain is improving over the past several days. Denies nausea, vomiting, fever, chills, chest pain, or shortness of breath. No other pedal complaints at this time. OBJECTIVE: VITAL SIGNS: Today, temperature 97.1, heart rate 50, respiratory rate 18, blood pressure 159/87, and pulse ox is 96% on nasal cannula. PROBLEM-FOCUSED LOWER EXTREMITY PHYSICAL EXAM: VASCULAR: Dorsalis pedis and posterior tibial pulses are palpable. Capillary refill time is 3 to 4 seconds in all digits. Minimal periwound erythema, edema, and warmth, which is significant improved since previous visit. Mild +1 pitting edema is noted to the periphery of the right posterior leg ulceration. NEUROLOGIC: Sensation is intact to the level of digits. MUSCULOSKELETAL: Moderate pain on palpation to the ulceration. DERMATOLOGICAL: Wound is stable, approximately 4 cm x 3 cm open fibrotic ulceration, which is approximately 50% fibrotic and 50% granular with improving local acute signs of infection. LABORATORY DATA: No new labs today. Glucose is 127. Wound cultures; Enterococcus faecalis, Acinetobacter lwoffii. ASSESSMENT: 1. Right leg venous stasis ulcer with cellulitis and infected. 2. Type 2 diabetes. 3. Hypertension. PLAN: The patient was seen and evaluated. Discussed condition and treatment options with the patient in detail. The patient continues to be afebrile with no leukocytosis. The wound continues to improve from local acute signs of infection standpoint. Dressing change was changed today with Xeroform, 4x4s, Kerlix, and an KERI wrap for compression. The patient has had significant improvement in 2 to 3 days with IV antibiotics, so we will recommend at-home IV antibiotics with local wound care for management of the wound. Due to multiple resistances on sensitivities, we will consult Infectious Disease for antibiotic management and at-home IV antibiotics. Appreciate Vascular consult who relates that the patient will likely need a venous ablation procedure as an outpatient. Podiatry service will continue to monitor as an inpatient. COREY Bennett/LORENA /[id number]
[2018-11-09] MEDS: HYDRALAZINE HCL 20 MG/ML VIAL IV PRN (16:19)
--- NOTE | 2018-11-09 19:44 | NUR ---
PATIENT IS RESTING IN BED- IN STABLE CONDITION WITH NO S/S OF RESPIRATORY DISTRESS. IV FLUIDS INFUSING. PRESENT IN ROOM. CALL LIGHT IS WITHIN REACH, INSTRUCTED TO CALL FOR ASSISTANCE NEEDED. REPORT GIVEN TO ONCOMING NURSE.
[2018-11-09] MEDS: LOSARTAN POTASSIUM 100 MG TAB PO SCH (22:29)
[2018-11-09] MEDS: FINASTERIDE 5 MG TAB PO SCH (22:30)
[2018-11-09] MEDS: INSULIN GLARGINE 100 UNITS/ML VIAL SQ SCH (22:31)
[2018-11-10] VITALS (7 sets, daily range): BP systolic 157–188; BP diastolic 74–87
[2018-11-10] MEDS: PIPER-TAZ 3.375 GM 50 ML IV SCH ×4 (00:39→17:27)
--- NOTE | 2018-11-10 04:05 | NUR ---
Patient laying in bed with HOB slightly elevated. AAO x 3. Bed at low position and locked. Call light within reach. Patient reports on no pain at this time. No acute distress noted. No sob noted. Patient in stable condition, will continue to monitor.
--- NOTE | 2018-11-10 05:08 | Consultation ---
DATE OF CONSULTATION: REASON FOR CONSULTATION: Chronic wound on the leg. HISTORY OF PRESENT ILLNESS: This patient is a very pleasant 73-year-old white gentleman, who has been having ulcer on his foot for more than three months. He has been doing oral antibiotic and local care, becoming progressively worse. The patient has history of diabetes mellitus, peripheral vascular disease, venous stasis dermatitis. He was admitted with worsening venous stasis ulcers. Apparently, it was all the way deep to the tendon at the present time . Infectious Disease was asked to see the patient. Currently, the patient is lying in bed comfortably. PAST MEDICAL HISTORY: Diabetes mellitus, hypertension, gout, . PAST SURGICAL HISTORY: Cardiac stent, right extremity, venous ablation. ALLERGIES: NKA. SOCIAL HISTORY: There is no smoking, drug abuse, or alcohol abuse. FAMILY HISTORY: Hypertension. REVIEW OF SYSTEMS: HEENT: Negative. PULMONARY: Negative. CARDIAC: Negative. : Negative. SKIN: There is no rash. LABORATORY DATA: Reviewed. His wound showed Acinetobacter lwoffii and Enterococcus. His white count is 10.4, hemoglobin 15. Sodium 136, potassium 2.8, creatinine 0.85. PHYSICAL EXAMINATION: GENERAL: He is currently alert, oriented, does not seem to be in acute distress. VITAL SIGNS: Stable. Currently afebrile. HEENT: He is not icteric. NECK: Supple. CHEST: Clear. HEART: . ABDOMEN: Soft. Bowel sounds present. No tenderness. EXTREMITIES: No edema and there is a large wound on his leg covered. The dressing seemed to have some serosanguinous drainage on it. Tendon is exposed. IMPRESSION: Tendonitis, right leg ulcer, venous stasis, deep, vancomycin and cefepime. We will see if we can do home IV antibiotics. He may benefit from going to an LTAC for followup. MD OTIS Chavis/LORENA /[id number]
--- NOTE | 2018-11-10 07:15 | NUR ---
PATIENT IS IN STABLE CONDITION WITH NO S/S OF RESPIRATORY DISTRESS. PATIENT STATES A RIGHT LOWER LEG PAIN OF 5/10- PATIENT DOES NOT WANT PAIN MEDICATION AT THIS TIME. PATIENT EDUCATION ON PAIN MANAGEMENT REINFORCED TO PATIENT. DRESSING TO RIGHT LOWER LEG IS DRY AND INTACT. PRESENT IN ROOM. CALL LIGHT IS WITHIN REACH, PATIENT INSTRUCTED TO CALL FOR ASSISTANCE NEEDED.
[2018-11-10] MEDS: INSULIN LISPRO 100 UNIT/1 ML 3ML VIAL SQ SCH ×4 (07:30→21:45)
[2018-11-10] MEDS: UBIDECARENONE 30 MG PO SCH (08:20)
[2018-11-10] MEDS: NON-FORMULARY MEDICATION (Lovastatin 20 MG) PO SCH (08:20)
[2018-11-10] MEDS: FLUTICASONE PROPIONATE NASAL SPRAY NS SCH (08:24)
[2018-11-10] MEDS: VANCOMYCIN 1GM/NS 250 ML 250 ML IV SCH ×2 (08:28→21:45)
[2018-11-10] MEDS: SODIUM CHLORIDE 0.9% 1000ML 1,000 ML IV SCH ×3 (08:29→21:45)
[2018-11-10] MEDS: METOPROLOL TARTRATE 25 MG TAB PO SCH ×2 (08:29→18:12)
[2018-11-10] MEDS: ALLOPURINOL 300 MG TAB PO SCH (09:48)
[2018-11-10] MEDS: ASPIRIN 81 MG CHEW TAB PO SCH (09:48)
[2018-11-10] MEDS: OMEGA 3 POLYUNSAT FATTY ACIDS 1000 MG SOFTGEL PO SCH (09:48)
[2018-11-10] MEDS: MULTIVITAMINS/MINERALS TAB PO SCH (09:48)
[2018-11-10] MEDS: AMLODIPINE BESYLATE 5 MG TAB PO SCH (09:48)
[2018-11-10] MEDS: GLIPIZIDE 5 MG TAB ER PO SCH (09:48)
[2018-11-10] MEDS: TAMSULOSIN HCL 0.4 MG CAP PO SCH (09:48)
[2018-11-10] MEDS: LORATADINE 10 MG TAB PO SCH (09:48)
[2018-11-10] MEDS: ONDANSETRON HCL INJ 2MG/ML 2ML 2 MG/ML VIAL IV PRN ×2 (11:32→20:41)
[2018-11-10] MEDS: MORPHINE SULFATE INJ 4 MG/ML INJ 1ML IV PRN ×2 (11:32→20:42)
[2018-11-10] MEDS: MESALAMINE 1.2 GM PO SCH ×2 (11:34→18:12)
--- NOTE | 2018-11-10 13:30 | Diagnostic Imaging Report ---
EXAMINATION: CHEST XRAY LINE PLACEMENT INDICATION: Status post PICC COMPARISON: CT chest 11/06/2018 and chest radiograph 11/05/2018. FINDINGS: TUBES and LINES: Status post interval placement of right-sided PICC terminates in the expected location of the upper SVC. LUNGS: Lungs are not well inflated. There is patchy opacity at the left lung base. PLEURA: No pleural effusion or pneumothorax. HEART AND MEDIASTINUM: The cardiomediastinal silhouette is unremarkable. BONES AND SOFT TISSUES: No acute osseous abnormality. UPPER ABDOMEN: No free air under the diaphragm. IMPRESSION: Status post interval placement of right-sided PICC terminates in the expected location of the upper SVC. No evidence of pneumothorax. Patchy left basilar opacity, likely atelectasis. Signed by: Dr. Tre Hammond MD on 11/10/2018 1:26 PM
--- NOTE | 2018-11-10 14:54 | Progress Note ---
DATE: 11/10/2018 SUBJECTIVE: A 73-year-old male with past medical history of type 2 diabetes, peripheral vascular disease, and venous stasis, admitted through the emergency room 4 days ago for worsening infection to his right leg. The patient relates to moderate pain, which is improving. Denies nausea, vomiting, fever, chills, chest pain, or shortness of breath. No other acute complaints at this time. OBJECTIVE: VITAL SIGNS: Today, temperature is 97.7, heart rate 50, respiratory rate 18, and pulse ox is 96% on nasal cannula. PROBLEM-FOCUSED LOWER EXTREMITY PHYSICAL EXAM: VASCULAR: Dorsalis pedis and posterior tibial pulses are palpable. Capillary refill time is less than 3 to 4 seconds in all digits. Minimal periwound erythema, edema, and warmth. Mild +1 pitting edema is noted to the periphery of the right posterior leg ulceration. NEUROLOGIC: Sensation is intact to the level of digits. MUSCULOSKELETAL: Moderate pain on palpation of the ulceration. Wound remains stable, approximately 4 cm x 3 cm open fibrotic ulceration, which remains about 50% fibrotic and 50% granular with improving local acute signs of infection. LABORATORY DATA: No new labs today. Glucose is 110. ASSESSMENT: 1. Right leg venous stasis ulcer with cellulitis. 2. Venous stasis. 3. Type 2 diabetes. 4. Hypertension. PLAN: The patient was seen and evaluated. Discussed condition and treatment options with the patient in detail. The patient continues to be afebrile with no leukocytosis. The wound continues to improve. Dressing was changed today utilizing Xeroform, 4x4s, Kerlix, and Thom wrap for compression. Infectious Disease was consulted for at-home IV antibiotics. Case management will be working on either home health with IV antibiotics versus long-term acute care. The patient will be scheduled for a venous procedure per Cardiology on an outpatient basis. The Podiatry Service will continue to monitor as an inpatient. COREY Bennett/LORENA /[id number]
--- NOTE | 2018-11-10 19:22 | NUR ---
PATIENT IN STABLE CONDITION WITH NO S/S OF RESPIRATORY DISTRESS. PATIENT STATES PAIN TO RIGHT LEG BUT DOES NOT WANT PAIN MEDICATION AT THIS TIME. IV FLUIDS INFUSING. PICC LINE FLUSHED. PRESENT IN ROOM. DRESSING TO RIGHT LOWER LEG IS INTACT. CALL LIGHT IS WITHIN REACH, INSTRUCTED TO CALL FOR ASSISTANCE NEEDED. REPORT GIVEN TO ONCOMING NURSE.
[2018-11-10] MEDS: HYDRALAZINE HCL 20 MG/ML VIAL IV PRN (19:48)
[2018-11-10] MEDS: FINASTERIDE 5 MG TAB PO SCH (21:45)
[2018-11-10] MEDS: INSULIN GLARGINE 100 UNITS/ML VIAL SQ SCH (21:45)
[2018-11-10] MEDS: LOSARTAN POTASSIUM 100 MG TAB PO SCH (21:45)
[2018-11-11] VITALS (7 sets, daily range): BP systolic 129–178; BP diastolic 67–90
[2018-11-11] MEDS: PIPER-TAZ 3.375 GM 50 ML IV SCH ×4 (00:07→17:40)
--- NOTE | 2018-11-11 02:22 | Progress Note ---
DATE: 11/10/2018 Cardiology Progress Note SUBJECTIVE: No major events overnight. OBJECTIVE: VITAL SIGNS: Temperature afebrile, pulse 74, respiratory rate 20, blood pressure 188/87, saturating 96% on nasal cannula. GENERAL: Well developed, well nourished, no acute distress. CARDIOVASCULAR: Regular rate and rhythm. No murmurs, rubs, or gallops. Palpable carotid pulses. Palpable radial pulses. LUNGS: Clear to auscultation bilaterally. ABDOMEN: Obese, soft, nontender, nondistended. No masses. NEURO AND PSYCH: Alert and oriented to person, place, time. Normal affect. CARDIOVASCULAR MEDICATIONS: Reviewed. LABORATORY DATA: Reviewed. ASSESSMENT: 1. Lower extremity wounds. 2. Diabetes. 3. Hypertension. 4. Hyperlipidemia. 5. Venous insufficiency, status post ablations in the past. RECOMMENDATIONS: Continue wound care per primary team. Arterial Dopplers showed normal flow bilateral lower extremities. Has residual venous insufficiency that needs further treatment, which will be done as an outpatient. Thank you for this consult. We will continue to follow. MD LIBRA Castillo/LORENA /[id number]
[2018-11-11] MEDS: INSULIN LISPRO 100 UNIT/1 ML 3ML VIAL SQ SCH ×4 (07:30→21:00)
--- NOTE | 2018-11-11 07:51 | NUR ---
CASE MANAGEMENT INITIAL ASSESSMENT Heel Top Lift Splitter to bedside to discuss plan of care with patient/family. CM/SW role and care transitions discussed. Anticipated discharge plan discussed along with duration of care. CM/SW discussed patients right to make decisions in care. CM/SW work hours given. Patient lives: Admit/Transfer: ER Hospital/ER visits since last admit:NONE POA/Emergency contact: KELLY JOHN [phone] Current/Previous Home Health: NONE PCP/Follow-up Care: DANIEL BAILEY Current/Previous DME: GLUCOMETER,ROLLATOR, BIPAP Medications (referring to index hospitalization or the first time you were in the hospital) a. Were changes made in your medications when you were in the hospital on [date of index hospitalization]? N/A Note: If no or not sure, please skip to question d b. Did you understand the changes? N/A c. Were you able to obtain your new medications right away? Yes No n/a SNF only Explain: d. Were you able to take your medications like the doctor wanted you to? Yes No Explain: e. Did the hospital give you an accurate, easy to understand list of medications when you left? Yes No n/a SNF only Explain: Scale of 1-10 how comfortable does patient feel with disease management in outpatient settin Other Services: NONE Employment Status: RETIRED Areas of Concerns: DIABETIC ULCER NOT HEALING Referral Needs: LTAC VS HOME WITH IV ABX Education Needs: NONE IMM/BARBOSA given and signed (if applicable): IMM ON ADMIT Goal for discharge: DC HOME OR LTAC WITH IV ABX TO PROMOTE WOUND HEALING CM/SW left business card at the bedside with contact information. Name and number was also written on the patients whiteboard. Patient verbalized understanding of discussion. CM will follow-up with ongoing discharge and transition of care needs.
[2018-11-11] MEDS: NON-FORMULARY MEDICATION (Lovastatin 20 MG) PO SCH (08:27)
[2018-11-11] MEDS: FLUTICASONE PROPIONATE NASAL SPRAY NS SCH (08:27)
[2018-11-11] MEDS: VANCOMYCIN 1GM/NS 250 ML 250 ML IV SCH ×2 (08:27→21:58)
[2018-11-11] MEDS: MESALAMINE 1.2 GM PO SCH ×2 (08:27→17:40)
[2018-11-11] MEDS: TAMSULOSIN HCL 0.4 MG CAP PO SCH (08:28)
[2018-11-11] MEDS: MULTIVITAMINS/MINERALS TAB PO SCH (08:28)
[2018-11-11] MEDS: UBIDECARENONE 30 MG PO SCH (08:28)
[2018-11-11] MEDS: GLIPIZIDE 5 MG TAB ER PO SCH (08:28)
[2018-11-11] MEDS: ASPIRIN 81 MG CHEW TAB PO SCH (08:28)
[2018-11-11] MEDS: LORATADINE 10 MG TAB PO SCH (08:28)
[2018-11-11] MEDS: METOPROLOL TARTRATE 25 MG TAB PO SCH ×2 (08:29→17:40)
[2018-11-11] MEDS: OMEGA 3 POLYUNSAT FATTY ACIDS 1000 MG SOFTGEL PO SCH (08:29)
[2018-11-11] MEDS: ALLOPURINOL 300 MG TAB PO SCH (08:29)
[2018-11-11] MEDS: AMLODIPINE BESYLATE 5 MG TAB PO SCH (08:29)
[2018-11-11] MEDS: ONDANSETRON HCL INJ 2MG/ML 2ML 2 MG/ML VIAL IV PRN ×2 (09:31→18:54)
[2018-11-11] MEDS: MORPHINE SULFATE INJ 4 MG/ML INJ 1ML IV PRN ×3 (09:31→22:45)
--- NOTE | 2018-11-11 11:27 | Progress Note ---
DATE: 11/11/2018 SUBJECTIVE: This is a 73-year-old male with past medical history of type 2 diabetes, peripheral vascular disease and venous stasis, admitted to the emergency room 5 days ago for worsening infection for his right leg. The patient continues to rate some moderate pain to his right leg. He was relating to diarrhea 3 times last night after midnight. Denies vomiting, fever, chills, chest pain or shortness of breath. No other acute issues overnight. OBJECTIVE: VITAL SIGNS: Today, temperature 98.2, heart rate 55, respiratory rate 18, blood pressure 178/90, pulse ox is 98% on nasal cannula. PROBLEM-FOCUSED LOWER EXTREMITY PHYSICAL EXAM: VASCULAR: Dorsalis pedis and posterior tibial pulses are palpable. Capillary refill time is less than 3 to 4 seconds in all digits. Minimal periwound erythema, edema, or warmth. +1 pitting edema continues to be noted to the right leg. NEUROLOGIC: Sensation is intact to the level of digits. MUSCULOSKELETAL: Moderate pain on palpation of the ulceration. Wound remains stable, fibrotic approximately 4 cm x 3 cm with improving local acute signs of infection. LABORATORY DATA: No new labs today. Blood glucose is 94. ASSESSMENT: 1. Right leg venous stasis ulcer with cellulitis. 2. Venous stasis. 3. Type 2 diabetes, peripheral neuropathy. 4. Hypertension. PLAN: The patient was seen and evaluated. Discussed condition and treatment options with the patient in detail. The patient continues to be afebrile with no leukocytosis and the wound is improving. Dressing was changed today with Xeroform, 4x4s, Kerlix and Thom wrap. Infectious Disease was consulted for at-home IV antibiotics versus IV antibiotics with an LTAC depending on patient's benefit. The patient will be scheduled for venous procedure per Cardiology notes on outpatient basis. The Podiatry Service will continue to monitor as an inpatient. COREY Bennett/LORENA /[id number]
[2018-11-11] MEDS: SODIUM CHLORIDE 0.9% 1000ML 1,000 ML IV SCH ×2 (12:01→13:08)
[2018-11-11] MEDS: CIPROFLOXACIN 400 MG/D5W 200ML 200 ML IV SCH (13:08)
--- NOTE | 2018-11-11 14:13 | Progress Note ---
DATE: SUBJECTIVE: The patient is overall feeling well, awaiting LTAC placement. OBJECTIVE: VITAL SIGNS: Temperature is 98.2, heart rate is 55, oxygen saturation is 98% on 2 L nasal cannula, respirations are 18, and blood pressure is 178/90. GENERAL: He is well appearing, well built, no apparent distress. CARDIOVASCULAR: He has regular rate and rhythm. No murmurs. LUNGS: Clear to auscultation. ABDOMEN: Soft, nontender, nondistended. EXTREMITIES: Wound on the right posterior calf, dressed. CARDIOVASCULAR MEDICATIONS: Reviewed. LABORATORY DATA: Reviewed. IMPRESSION: 1. Lower extremity wound. 2. Diabetes mellitus. 3. Hypertension. 4. Hyperlipidemia. 5. Venous insufficiency, status post ablation. RECOMMENDATIONS: Continue wound care and IV antibiotics per primary team. Awaiting LTAC placement. The patient has mild residual venous insufficiency that will be treated as an outpatient. Thank you for the consultation. DO NALLELY Felton/MODL /[id number]
--- NOTE | 2018-11-11 14:41 | NUR ---
LTAC EVAL ORDERED CONSENTS SIGNED FOR [facility] COREY GARNER NOTIFIED OF CONSULT MOT INITIATED AND IN PACKET AT DESK IN ENVELOPE WITH PT'S NAME AWAIT INSURANCE AUTH PT AWARE THAT INSURANCE MAY NOT APPROVE LTAC BACK UP PLAN IS HOME WITH IV ABX
--- NOTE | 2018-11-11 19:20 | NUR ---
Patient visited in room during nursing rounds. Patient alert and oriented x3. Pt ambulatory with assist. Right calf ulcer covered with xeroform, kelix and harjinder bandage. On IVF and scheduled IV antibiotics. Call snowden within reach. Will monitor closely.
[2018-11-11] MEDS: FINASTERIDE 5 MG TAB PO SCH (21:58)
[2018-11-11] MEDS: LOSARTAN POTASSIUM 100 MG TAB PO SCH (21:58)
[2018-11-11] MEDS: INSULIN GLARGINE 100 UNITS/ML VIAL SQ SCH (22:08)
[2018-11-12] VITALS (8 sets, daily range): BP systolic 130–182; BP diastolic 65–94
[2018-11-12] MEDS: PIPER-TAZ 3.375 GM 50 ML IV SCH ×5 (00:16→23:47)
[2018-11-12] MEDS: CIPROFLOXACIN 400 MG/D5W 200ML 200 ML IV SCH ×2 (00:50→12:45)
[2018-11-12] MEDS: HYDRALAZINE HCL 20 MG/ML VIAL IV PRN ×2 (01:31→15:52)
[2018-11-12] MEDS: SODIUM CHLORIDE 0.9% 1000ML 1,000 ML IV SCH ×2 (04:01→08:58)
[2018-11-12] MEDS: INSULIN LISPRO 100 UNIT/1 ML 3ML VIAL SQ SCH ×4 (07:30→21:00)
[2018-11-12] MEDS: FLUTICASONE PROPIONATE NASAL SPRAY NS SCH (08:39)
[2018-11-12] MEDS: NON-FORMULARY MEDICATION (Lovastatin 20 MG) PO SCH (08:39)
[2018-11-12] MEDS: MESALAMINE 1.2 GM PO SCH ×2 (08:39→17:10)
[2018-11-12] MEDS: VANCOMYCIN 1GM/NS 250 ML 250 ML IV SCH ×2 (08:39→21:00)
[2018-11-12] MEDS: GLIPIZIDE 5 MG TAB ER PO SCH (08:40)
[2018-11-12] MEDS: MULTIVITAMINS/MINERALS TAB PO SCH (08:40)
[2018-11-12] MEDS: METOPROLOL TARTRATE 25 MG TAB PO SCH ×2 (08:40→17:15)
[2018-11-12] MEDS: ASPIRIN 81 MG CHEW TAB PO SCH (08:40)
[2018-11-12] MEDS: LORATADINE 10 MG TAB PO SCH (08:40)
[2018-11-12] MEDS: TAMSULOSIN HCL 0.4 MG CAP PO SCH (08:40)
[2018-11-12] MEDS: AMLODIPINE BESYLATE 5 MG TAB PO SCH (08:42)
[2018-11-12] MEDS: ALLOPURINOL 300 MG TAB PO SCH (08:42)
[2018-11-12] MEDS: OMEGA 3 POLYUNSAT FATTY ACIDS 1000 MG SOFTGEL PO SCH (08:42)
[2018-11-12] MEDS: UBIDECARENONE 30 MG PO SCH (09:00)
--- NOTE | 2018-11-12 12:18 | Progress Note ---
DATE: 11/12/2018 SUBJECTIVE: This is a 73-year-old male with past medical history of type 2 diabetes, peripheral vascular disease, and venous stasis, who was admitted through the emergency room 6 days ago for worsening infection to his right leg. The patient relates to improvement in pain to his right leg and his diarrhea from last night appears to be resolving. Denies vomiting, fever, chills, chest pain, or shortness of breath. No other acute issues overnight. OBJECTIVE: VITAL SIGNS: Today, temperature 98.1, heart rate 64, respiratory rate 18, blood pressure 160/74, and pulse ox is 98% on 2 L nasal cannula. PROBLEM-FOCUSED LOWER EXTREMITY PHYSICAL EXAM: VASCULAR: Dorsalis pedis and posterior tibial pulses are palpable. Capillary refill time is less than 3 to 4 seconds in all digits. Negative periwound erythema, edema, or warmth. +1 pitting edema continues to be present to the right leg. NEUROLOGIC: Sensation is intact to the level of digits. MUSCULOSKELETAL: Moderate pain on palpation to the ulceration. DERMATOLOGICAL: Wound remains stable. Fibrotic layer is present over the wound, it is approximately 4 cm x 3 cm with improving local acute signs of infection. LABORATORY DATA: No new labs today. Blood glucose is 156. ASSESSMENT: 1. Right leg venous stasis ulcer with cellulitis, improving. 2. Venous stasis. 3. Type 2 diabetes. 4. Hypertension. PLAN: The patient was seen and evaluated. Discussed condition and treatment options with the patient in detail. The patient continues to be afebrile with no leukocytosis with improvement of the wound. Dressing was changed today with Xeroform, 4x4s, Kerlix, and an Thom wrap. The patient is currently trying to be approved for a LTACH versus home antibiotics. A PICC line has been placed. The patient will be scheduled for a venous procedure per Cardiology on an outpatient basis. Podiatry will continue to monitor as an inpatient. COREY Bennett/MODL /[id number]
--- NOTE | 2018-11-12 14:20 | Progress Note ---
DATE: 11/12/2018 Cardiology Progress Note SUBJECTIVE: The patient denies chest pain or shortness of breath. OBJECTIVE: VITAL SIGNS: Temperature 98.1 degrees, pulse 64, respiratory rate 18, blood pressure 165/92, oxygen saturation 98%. GENERAL: Awake, alert, in no acute distress. LUNGS: Clear to auscultation bilaterally. No wheezes or crackles. CARDIOVASCULAR: Normal rate, regular rhythm. No murmur. Normal S1, S2. ABDOMEN: Soft, nontender. EXTREMITIES: No edema. Dressing present on the right lower extremity. CARDIAC MEDICATIONS: Fish oil 1000 mg p.o. daily, amlodipine 5 mg p.o. daily, metoprolol 25 mg p.o. b.i.d., aspirin 81 mg p.o. daily, losartan 100 mg p.o. at bedtime. LABORATORY DATA: None today. IMPRESSION: 1. Right lower extremity wound. 2. Diabetes mellitus. 3. Hypertension. 4. Hyperlipidemia. 5. Venous insufficiency, status post ablation. RECOMMENDATIONS: Continue wound care and IV antibiotics. The patient is awaiting LTAC placement. He has mild residual venous insufficiency that will be treated as an outpatient. Thank you for this consult. We will continue to follow. Kalli Simmons MD ABS/MODL /[id number] MTDD
[2018-11-12] MEDS: ACETAMINOPHEN 325 MG TAB PO PRN (14:32)
--- NOTE | 2018-11-12 18:11 | NUR ---
Nutrition Screen Note RD Recommendation for Physician: -Continue ADA diet as ordered Plan of Care: RD following, monitoring for tolerance and adequacy Nutrition reason for involvement: LOS Primary Diagnose(s): Right lower extremity wound PMH: diabetes, hypertension, peripheral vascular disease, and venous stasis Ht: 74in Wt: 227lb BMI: 29.1kg/m2 IBW: 190lb RD Assessment: (11/12) Chart reviewed. Labs and meds reviewed. 72yo M, who was admitted for RLE diabetic ulcer. Currently on wound care and IV antibiotics. The patient is awaiting LTAC placement. Visited pt in the room. Pt reported good appetite with 75-100% recorded meal intake. No GI complains noted. LBM 11/11. No chewing or swallowing difficulty noted. Pt denied any recent weight loss [employer]. Will continue to monitor and follow. Current Diet: ADA diet Malnutrition Evaluation (11/12) The patient does not meet criteria for a specified degree of malnutrition at this time. Will re-evaluate at follow-up as appropriate. Diet Education Needs Assessment: Diet education indicated, pt was not interested. Nutrition Care Level: low Signed: Blanca Arias, MS, RD, LD
--- NOTE | 2018-11-12 19:30 | NUR ---
Received patient awake, at the bedside, right lower leg dressing intact. Patient refused his IVF per report due to increase urination, patient educated, still refused. Advised to call for assistance when needed. Will contnue to monitor
[2018-11-12] MEDS: FINASTERIDE 5 MG TAB PO SCH (20:40)
[2018-11-12] MEDS: LOSARTAN POTASSIUM 100 MG TAB PO SCH (20:40)
[2018-11-12] MEDS: INSULIN GLARGINE 100 UNITS/ML VIAL SQ SCH (21:01)
[2018-11-12] MEDS: ONDANSETRON HCL INJ 2MG/ML 2ML 2 MG/ML VIAL IV PRN (21:58)
[2018-11-12] MEDS: MORPHINE SULFATE INJ 4 MG/ML INJ 1ML IV PRN (21:58)
[2018-11-13] VITALS (7 sets, daily range): BP systolic 139–181; BP diastolic 72–93
[2018-11-13] MEDS: CIPROFLOXACIN 400 MG/D5W 200ML 200 ML IV SCH ×3 (00:45→23:47)
[2018-11-13] MEDS: HYDRALAZINE HCL 20 MG/ML VIAL IV PRN ×2 (05:06→16:56)
[2018-11-13] MEDS: PIPER-TAZ 3.375 GM 50 ML IV SCH ×3 (05:06→17:00)
[2018-11-13] MEDS: INSULIN LISPRO 100 UNIT/1 ML 3ML VIAL SQ SCH ×4 (07:30→21:53)
[2018-11-13] MEDS: ACETAMINOPHEN 325 MG TAB PO PRN (08:29)
[2018-11-13] MEDS: VANCOMYCIN 1GM/NS 250 ML 250 ML IV SCH ×2 (08:35→21:53)
[2018-11-13] MEDS: FLUTICASONE PROPIONATE NASAL SPRAY NS SCH (09:00)
[2018-11-13] MEDS: UBIDECARENONE 30 MG PO SCH (09:00)
[2018-11-13] MEDS: ASPIRIN 81 MG CHEW TAB PO SCH (09:46)
[2018-11-13] MEDS: MESALAMINE 1.2 GM PO SCH ×2 (09:47→18:20)
[2018-11-13] MEDS: LORATADINE 10 MG TAB PO SCH (09:47)
[2018-11-13] MEDS: NON-FORMULARY MEDICATION (Lovastatin 20 MG) PO SCH (09:47)
[2018-11-13] MEDS: MULTIVITAMINS/MINERALS TAB PO SCH (09:48)
[2018-11-13] MEDS: TAMSULOSIN HCL 0.4 MG CAP PO SCH (09:48)
[2018-11-13] MEDS: OMEGA 3 POLYUNSAT FATTY ACIDS 1000 MG SOFTGEL PO SCH (09:48)
[2018-11-13] MEDS: GLIPIZIDE 5 MG TAB ER PO SCH (09:48)
[2018-11-13] MEDS: ALLOPURINOL 300 MG TAB PO SCH (09:49)
[2018-11-13] MEDS: AMLODIPINE BESYLATE 5 MG TAB PO SCH (09:49)
[2018-11-13] MEDS: METOPROLOL TARTRATE 25 MG TAB PO SCH ×2 (09:49→18:20)
--- NOTE | 2018-11-13 11:00 | Progress Note ---
DATE: 11/13/2018 SUBJECTIVE: This is a 73-year-old male with past medical history of type 2 diabetes, peripheral vascular disease, venous stasis, who was admitted through the emergency room approximately one week ago for a worsening infection to his right leg. The patient relates improvement in pain. Currently denies nausea, vomiting, fever, chills, chest pain, or shortness of breath. He relates that his diarrhea has resolved. No other acute issues overnight. OBJECTIVE: VITAL SIGNS: Today, temperature 96.9, heart rate 76, respiratory rate 18, blood pressure 161/90, pulse ox 97% on room air. PROBLEM FOCUSED LOWER EXTREMITY PHYSICAL EXAM: VASCULAR: Dorsalis pedis and posterior tibial pulses are palpable. Capillary refill time is less than 3 seconds in all digits. Negative periwound erythema, edema. 1+ pitting edema continues to be present to the right leg. NEUROLOGICAL: Sensation is intact to level of digits. MUSCULOSKELETAL: Moderate pain on palpation of the ulceration. DERMATOLOGICAL: Wound remained stable. Fibrotic layer is present over the wound approximately 4 cm x 3 cm with improving local acute signs of infection. LABS: No new labs today. Blood glucose is 102. Vancomycin trough yesterday was 12.8. PLAN: The patient was seen and evaluated, discussed condition and treatment options with the patient in detail. The patient continues to be afebrile with no leukocytosis that continues to be improved. The wound dressing was changed today with Xeroform, 4x4s, Kerlix, and Thom wrap. The patient is pending insurance approval for an LTAC versus at-home IV antibiotics. PICC line has already been placed. The patient will be scheduled for venous procedure per Cardiology on an outpatient basis. The patient relates that he was denied by [facility], but there is a chance he may get approved for [facility] [place]. The Podiatry service will continue to monitor as an inpatient. COREY Bennett/LORENA /[id number]
[2018-11-13] MEDS: SODIUM CHLORIDE 0.9% 1000ML 1,000 ML IV SCH (12:01)
--- NOTE | 2018-11-13 14:31 | NUR ---
INFORMED John LEWIS OF PATIENT'S DIARRHEA- RECEIVED ORDERS FOR STOOL SAMPLE AND MEDICATIONS.
[2018-11-13] MEDS ORDERED: CHOLESTYRAMINE 4 GM PACKET PO SCH ×2 (15:00→17:00)
[2018-11-13] MEDS ORDERED: BISMUTH SUBSALICYLATE 262 MG TAB PO PRN (15:00)
[2018-11-13] MEDS: CHOLESTYRAMINE 4 GM PACKET PO SCH (17:00)
--- NOTE | 2018-11-13 19:27 | NUR ---
PATIENT IS SITTING IN THE RECLINER- IN STABLE CONDITION WITH NO S/S OF RESPIRATORY DISTRESS. NO PAIN INDICATED. PRESENT IN ROOM. CALL LIGHT IS WITHIN REACH, PATIENT INSTRUCTED TO CALL FOR ASSISTANCE NEEDED. BEDSIDE REPORT COMPLETED WITH ONCOMING NURSE.
--- NOTE | 2018-11-13 19:47 | NUR ---
PT IS RESTING IN BED WITH AT BEDSIDE. NO RESPIRATORY DISTRESS NOTED. BED IN THE LOWEST POSITION, LOCKED, AND CALL LIGHT WITHIN REACH. WILL CONTINUE TO MONITOR.
--- NOTE | 2018-11-13 20:12 | Progress Note ---
DATE: 11/13/2018 Cardiology Progress Note SUBJECTIVE: The patient denies chest pain or shortness of breath. OBJECTIVE: VITAL SIGNS: Temperature 98.5 degrees, pulse 64, respiratory rate of 20, blood pressure 152/86, oxygen saturation 98%. GENERAL: Awake, alert, in no acute distress. LUNGS: Clear to auscultation bilaterally. No wheeze or crackles. CARDIOVASCULAR: Normal rate. Regular rhythm. No murmur. Normal S1, S2. ABDOMEN: Soft, nontender. EXTREMITIES: No edema. Dressing present on the right lower extremity. CARDIAC MEDICATIONS: 1. Metoprolol tartrate 25 mg p.o. b.i.d. 2. Amlodipine 5 mg p.o. daily. 3. Fish oil 1000 mg p.o. daily. 4. Aspirin 81 mg p.o. daily. LABS: None today. IMPRESSION: 1. Right lower extremity wound. 2. Diabetes mellitus. 3. Hypertension. 4. Hyperlipidemia. 5. Venous insufficiency, status post ablation. RECOMMENDATIONS: 1. Continue wound care and IV antibiotics. The patient is awaiting LTAC placement. He has mild residual venous insufficiency that will be treated as an outpatient. 2. Continue current cardiac medications. 3. Increase amlodipine as the patient's blood pressure is not well controlled. Kalli Simmons MD ABS/MODL /[id number]
--- NOTE | 2018-11-13 21:51 | NUR ---
PER DR Ginny VELAZCO MORPHINE 4MG Q4H PRN CAN BE RENEW. WILL CONTINUE TO MONITOR.
[2018-11-13] MEDS: LOSARTAN POTASSIUM 100 MG TAB PO SCH (21:53)
[2018-11-13] MEDS: FINASTERIDE 5 MG TAB PO SCH (21:53)
[2018-11-13] MEDS: INSULIN GLARGINE 100 UNITS/ML VIAL SQ SCH (21:53)
[2018-11-13] MEDS: MORPHINE SULFATE INJ 4 MG/ML INJ 1ML IV PRN (22:14)
[2018-11-13] MEDS: ONDANSETRON HCL INJ 2MG/ML 2ML 2 MG/ML VIAL IV PRN (22:15)
[2018-11-14] VITALS (8 sets, daily range): BP systolic 142–184; BP diastolic 76–91
[2018-11-14] MEDS: PIPER-TAZ 3.375 GM 50 ML IV SCH ×4 (00:51→18:23)
--- NOTE | 2018-11-14 07:08 | NUR ---
RECEIVED PATIENT RESTING IN BED. NO ACUTE DISTRESS NOTED. DENIES PAIN OR DISCOMFORT. AT BEDSIDDE. CALL LIGHT WITHIN REACH. BED IN THE LOWEST POSITION.
[2018-11-14] MEDS: INSULIN LISPRO 100 UNIT/1 ML 3ML VIAL SQ SCH ×4 (07:30→20:40)
[2018-11-14 07:49] LABS: BASOPHILS # (AUTO) 0.1 (0.0-0.1); BASOPHILS % 0.5 % (0.0-1.0); EOSINOPHILS # (AUTO) 0.1 (0.0-0.4); EOSINOPHILS % 0.9 % (0.0-6.0); HEMATOCRIT 39.2 % (38.2-49.6); LYMPHOCYTES # (AUTO) 1.1 (1.0-3.2); LYMPHOCYTES % 12.5 % (18.0-39.1); MEAN CORPUSCULAR HEMOGLOBIN 29.7 pg (28-32); MEAN CORPUSCULAR HGB CONC 33.2 g/dL (31-35); MEAN CORPUSCULAR VOLUME 89.5 fL (81-99); MONOCYTES % 10.5 % (4.4-11.3); NEUTROPHILS # (AUTO) 6.9 (2.1-6.9); NEUTROPHILS % 75.2 % (38.7-80.0); PLATELET COUNT 207 x10e3/uL (140-360); RED BLOOD COUNT 4.38 x10e6/uL (4.3-5.7); RED CELL DISTRIBUTION WIDTH 14.1 % (11.7-14.4)
[2018-11-14] MEDS: CHOLESTYRAMINE 4 GM PACKET PO SCH ×2 (08:00→11:31)
--- NOTE | 2018-11-14 08:26 | NUR ---
NOTIFIED ELENA KEYES OF [facility] OF 15.7. OK TO GIVE VANCOMYCIN ORDERED.
[2018-11-14] MEDS ORDERED: AMLODIPINE BESYLATE 5 MG TAB PO SCH (09:00)
[2018-11-14] MEDS: UBIDECARENONE 30 MG PO SCH (09:00)
[2018-11-14] MEDS: NON-FORMULARY MEDICATION (Lovastatin 20 MG) PO SCH (09:08)
[2018-11-14] MEDS: MESALAMINE 1.2 GM PO SCH ×2 (09:08→18:22)
[2018-11-14] MEDS: TAMSULOSIN HCL 0.4 MG CAP PO SCH (09:09)
[2018-11-14] MEDS: GLIPIZIDE 5 MG TAB ER PO SCH (09:10)
[2018-11-14] MEDS: LORATADINE 10 MG TAB PO SCH (09:10)
[2018-11-14] MEDS: ASPIRIN 81 MG CHEW TAB PO SCH (09:10)
[2018-11-14] MEDS: ALLOPURINOL 300 MG TAB PO SCH (09:11)
[2018-11-14] MEDS: METOPROLOL TARTRATE 25 MG TAB PO SCH ×2 (09:11→18:23)
[2018-11-14] MEDS: MULTIVITAMINS/MINERALS TAB PO SCH (09:11)
[2018-11-14] MEDS: OMEGA 3 POLYUNSAT FATTY ACIDS 1000 MG SOFTGEL PO SCH (09:11)
[2018-11-14] MEDS: AMLODIPINE BESYLATE 10 MG TAB PO SCH (09:11)
[2018-11-14] MEDS: VANCOMYCIN 1GM/NS 250 ML 250 ML IV SCH ×2 (09:15→20:40)
--- NOTE | 2018-11-14 11:39 | Progress Note ---
DATE: 11/14/2018 SUBJECTIVE: This is a 73-year-old male with past medical history of type 2 diabetes, peripheral vascular disease, venous stasis, who was admitted through the emergency room approximately one week ago for a worsening infection to his right leg. The patient relates improvement in pain. Currently denies nausea, vomiting, fever, chills, chest pain, or shortness of breath. He relates that his diarrhea has resolved. No other acute issues overnight. OBJECTIVE: VITAL SIGNS: Today, temperature 98.0, heart rate 60, respiratory rate 17, blood pressure 142/76, pulse ox 97% on 2 L nasal cannula. PROBLEM FOCUSED LOWER EXTREMITY PHYSICAL EXAM: VASCULAR: Dorsalis pedis and posterior tibial pulses are palpable. Capillary refill time is 3 seconds to all digits. Negative periwound erythema, edema is +1. Pitting edema continues to be present to the right leg. NEUROLOGICAL: Sensation is intact to the level of the digits. MUSCULOSKELETAL: Pain on palpation to the ulceration. DERMATOLOGICAL: Wound remains stable. Fibrotic layer is present of the wound, remains approximately 4 cm x 3 cm with improving local acute signs of infection. LABORATORY DATA: Labs; white blood cell count is 9.13, hemoglobin 13.0, hematocrit 39.2, platelet count 207. Glucose 219. PLAN: The patient was seen and evaluated. Discussed condition and treatment options with the patient in detail. The patient continues to be afebrile with no leukocytosis and local acute signs of infection continue to be improved. Wound dressing was changed today with Xeroform, 4x4s, Kerlix, and Thom wrap. The patient is pending insurance approval for an LTAC versus at-home antibiotics. Per the patient and the nurse, it does not appear likely that the patient will have benefits from either LTAC or at-home IV antibiotics. If this is the case, the patient will have to be discharged with oral antibiotics and local wound care. But patient is currently undergoing appeal for it at [facility]. We will plan for a bedside wound debridement tomorrow. Discussed with the nurse about the supplies needed. The Podiatry Service will continue to monitor as an inpatient. Cortez Lama DPM MAF/MODL /[id number]
[2018-11-14] MEDS: CIPROFLOXACIN 400 MG/D5W 200ML 200 ML IV SCH ×2 (12:07→23:51)
--- NOTE | 2018-11-14 14:50 | Progress Note ---
DATE: 11/14/2018 Cardiology Progress Note SUBJECTIVE: The patient denies chest pain or shortness of breath. OBJECTIVE: VITAL SIGNS: Temperature 97.7 degrees, pulse 60, respiratory rate 20, blood pressure 148/76, and oxygen saturation 95%. GENERAL: Awake, alert, no acute distress. LUNGS: Clear to auscultation bilaterally. No wheeze or crackles. CARDIOVASCULAR: Normal rate, regular rhythm. No murmur. Normal S1, S2. ABDOMEN: Soft, nontender. EXTREMITIES: No edema. Dressing present on right lower extremity. CARDIAC MEDICATIONS: Amlodipine 10 mg p.o. daily, fish oil 1000 mg p.o. daily, metoprolol tartrate 25 mg p.o. b.i.d., aspirin 81 mg p.o. daily, and losartan 100 mg p.o. at bedtime. LABORATORY DATA: WBC 9.13, hemoglobin 13, hematocrit 39.2, and platelets 207. IMPRESSION: 1. Right lower extremity wound. 2. Diabetes mellitus. 3. Hypertension. 4. Hyperlipidemia. 5. Venous insufficiency, status post ablation. RECOMMENDATIONS: Continue wound care and IV antibiotics. The patient is awaiting LTAC. He has mild residual venous insufficiency that will be treated as an outpatient. Continue current cardiac medications. Assess blood pressure response to increase in amlodipine. Thank you for this consult. We will continue to follow. Kalli Simmons MD ABS/MODL /[id number]
--- NOTE | 2018-11-14 14:53 | NUR ---
LTAC EVAL DENIED BY INSURANCE ON 11/13 PEER TO PEER DONE TODAY AND DENIAL UPHELD WILL NOTIFY Ginny VELAZCO
[2018-11-14] MEDS: VANCOMYCIN 250MG/5ML ORAL SOLN PO SCH ×2 (18:23→23:51)
--- NOTE | 2018-11-14 19:36 | NUR ---
REPORT GIVEN TO ONCOMING NURSE, WALKING ROUNDS DONE. PATIENT IS RESTING BED, RESPIRATIONS EVEN AND UNLABORED, NO ACUTE DISTRESS NOTED. CALL LIGHT WITHIN REACH. BED IN THE LOWEST POSITION.
--- NOTE | 2018-11-14 19:54 | NUR ---
PT IS RESTING IN RECLINER. NO RESPIRATORY DISTRESS NOTED. BED IN THE LOWEST POSITION, LOCKED, AND CALL LIGHT WITHIN REACH. WILL CONTINUE TO MONITOR.
[2018-11-14] MEDS: FLUTICASONE PROPIONATE NASAL SPRAY NS SCH (20:40)
[2018-11-14] MEDS: INSULIN GLARGINE 100 UNITS/ML VIAL SQ SCH (20:40)
[2018-11-14] MEDS: LOSARTAN POTASSIUM 100 MG TAB PO SCH (20:41)
[2018-11-14] MEDS: FINASTERIDE 5 MG TAB PO SCH (20:41)
[2018-11-14] MEDS: MORPHINE SULFATE INJ 4 MG/ML INJ 1ML IV PRN (22:31)
[2018-11-14] MEDS: ONDANSETRON HCL INJ 2MG/ML 2ML 2 MG/ML VIAL IV PRN (22:31)
[2018-11-15] VITALS (8 sets, daily range): BP systolic 160–188; BP diastolic 76–86
[2018-11-15] MEDS: PIPER-TAZ 3.375 GM 50 ML IV SCH ×5 (00:40→23:46)
[2018-11-15] MEDS: VANCOMYCIN 250MG/5ML ORAL SOLN PO SCH ×4 (05:43→23:46)
[2018-11-15] MEDS: HYDRALAZINE HCL 20 MG/ML VIAL IV PRN ×2 (05:44→12:33)
--- NOTE | 2018-11-15 07:13 | NUR ---
RECEIVED PATIENT RESTING IN BED, RESPIRATIONS EVEN AND UNLABORED. NO ACUTE DISTRESS NOTED. CALL LIGHT WITHIN REACH. BED IN THE LOWEST POSITION.
[2018-11-15] MEDS: INSULIN LISPRO 100 UNIT/1 ML 3ML VIAL SQ SCH ×4 (07:30→20:32)
[2018-11-15] MEDS ORDERED: LIDOCAINE HCL 2% JELLY 5 ML TUBE TOP ONE (08:00)
[2018-11-15] MEDS: UBIDECARENONE 30 MG PO SCH (09:00)
[2018-11-15] MEDS: VANCOMYCIN 1GM/NS 250 ML 250 ML IV SCH ×2 (09:28→21:55)
[2018-11-15] MEDS: MESALAMINE 1.2 GM PO SCH ×2 (09:28→18:05)
[2018-11-15] MEDS: NON-FORMULARY MEDICATION (Lovastatin 20 MG) PO SCH (09:28)
[2018-11-15] MEDS: ASPIRIN 81 MG CHEW TAB PO SCH (09:28)
[2018-11-15] MEDS: MULTIVITAMINS/MINERALS TAB PO SCH (09:29)
[2018-11-15] MEDS: METOPROLOL TARTRATE 25 MG TAB PO SCH ×2 (09:29→18:05)
[2018-11-15] MEDS: OMEGA 3 POLYUNSAT FATTY ACIDS 1000 MG SOFTGEL PO SCH (09:29)
[2018-11-15] MEDS: TAMSULOSIN HCL 0.4 MG CAP PO SCH (09:29)
[2018-11-15] MEDS: GLIPIZIDE 5 MG TAB ER PO SCH (09:29)
[2018-11-15] MEDS: AMLODIPINE BESYLATE 10 MG TAB PO SCH (09:29)
[2018-11-15] MEDS: LORATADINE 10 MG TAB PO SCH (09:29)
[2018-11-15] MEDS: ALLOPURINOL 300 MG TAB PO SCH (09:29)
[2018-11-15] MEDS: CIPROFLOXACIN 400 MG/D5W 200ML 200 ML IV SCH (11:05)
--- NOTE | 2018-11-15 17:05 | Progress Note ---
DATE: 11/15/2018 Cardiology Progress Note SUBJECTIVE: The patient denies chest pain or shortness of breath. The patient reports he is still having diarrhea, although this is better. OBJECTIVE: VITAL SIGNS: Temperature 97.1 degrees, pulse 78, respiratory rate 20, blood pressure 170/79, and oxygen saturation 94% on room air. GENERAL: Awake, alert, in no acute distress. LUNGS: Clear to auscultation bilaterally. No wheezes or crackles. CARDIOVASCULAR: Normal rate. Regular rhythm. No murmur. Normal S1, S2. ABDOMEN: Soft, nontender. EXTREMITIES: No edema. Dressing present on the right lower extremity. CARDIAC MEDICATIONS: Amlodipine 10 mg p.o. daily, fish oil 1000 mg p.o. daily, metoprolol tartrate 25 mg p.o. b.i.d., lovastatin 20 mg p.o. daily, and losartan 100 mg p.o. daily. LABS: None today. IMPRESSION: 1. Right lower extremity wound. 2. Diabetes mellitus. 3. Hypertension. 4. Hyperlipidemia. 5. Venous insufficiency, status post ablation. RECOMMENDATIONS: Continue wound care and IV antibiotics. The patient is awaiting LTAC placement. He has mild residual venous insufficiency that will be treated as an outpatient. Continue current cardiac medications. The patient's blood pressure remains elevated despite increase in amlodipine. If the patient's blood pressure remains elevated over the next few days, we will plan to change metoprolol to carvedilol and add diuretic therapy. Thank you for this consult. We will continue to follow. Kalli Simmons MD ABS/MODL /[id number]
--- NOTE | 2018-11-15 17:15 | NUR ---
11/15 0900 CM CALLED BY PT IN ROOM; HE IS VERY CONCERNED THAT I.D. WANTS TO SEND HIM HOME ON 2 PO ABX TODAY STATES HE HAS BEEN ON PO ABX PRIOR TO ADMIT AND DOES NOT FEEL LIKE IT WILL WORK AL CLAIMS COUNSEL WITH DR TRUONG NOTIFIED AL WILL SEE IF IV VANCO CAN BE ADMINISTERED THRU HIS INFUSION SUITE 10:45 CM RECEIVED CALL BACK FROM [facility] AT DR TRUONG'S OFFICE STATING THEY ARE OUT OF NETWORK WITH PT'S INSURANCE CM CALLED ISAURA WITH [facility] AND FAXED ORDERS [facility] STATES THEY ARE IN NETWORK WITH [employer] [facility] 13:15 CM REC'D CALL BACK FROM [facility] WITH [facility] STATING THEY ARE NOT IN NETWORK WITH THIS [employer] PLAN CLINICALS FORWARDED TO [facility] WITH [facility] [phone] PT ALSO HAS TO HAVE PO VANCOMYCIN FOR C DIFF X 35 DAYS RX CALLED INTO PT'S PHARMACY BY AL NEED TO ESTABLISH PT'S COPAY 15:00 CM SPOKE WITH [facility]; PT'S COPAY FOR PO VANCO IS 960.00 PT INFORMED OF COPAY CAN NOT AFFORD 960.00 15:30 CM SPOKE WITH AL CLAIMS COUNSEL FOR DR TRUONG AND NOTIFIED HIM OF [facility] IS [facility] WILL DISCUSS WITH PT IN AM WHEN HE ROUNDS PT'S IS GOING TO APPEAL THE LTAC DENIAL WITH KISHA PRAJAPATI TO FOLLOW
--- NOTE | 2018-11-15 17:28 | NUR ---
EXPLAINED IMM LETTER. PT VERBALIZED UNDERSTANDING. IMM LETTER SIGNED. COPY TO CHART AND COPY TO PT.
--- NOTE | 2018-11-15 17:36 | Operative Report ---
DATE OF PROCEDURE: 11/15/2018 SURGEON: Cortez Lama DPM PREOPERATIVE DIAGNOSIS: Right foot venous stasis ulcer. POSTOPERATIVE DIAGNOSIS: Right foot venous stasis ulcer. PLANNED PROCEDURE: Right foot wound debridement. ANESTHESIA: 2% lidocaine jelly. PATHOLOGY: Anaerobic and aerobic cultures. ESTIMATED BLOOD LOSS: Less than 5 mL. MATERIALS: Xeroform. PROCEDURE NOTE: The patient was seen at bedside and the correct procedure, site, and location was identified. The surgical site was scrubbed, prepped, and draped in the usual aseptic fashion. A 1% lidocaine jelly was applied to a piece of sterile gauze and placed over the wound and allowed to sit for approximately 10 minutes. Next, utilizing a #15 blade the fibrotic biofilm and tissue were debrided to the level of subcutaneous tissue excisionally. The wound was then noted to be approximately 80% granular with 20% fibrotic tissue noted. No purulent drainage was noted. No local acute signs of infection are present. No Achilles tendon was visualized. The wound was then flushed copiously with sterile saline and dry sterile dressing was applied utilizing Xeroform, 4x4s, Kerlix, and an Thom wrap with compression. The patient tolerated the procedure and anesthesia well. Apparently, the patient has been denied at multiple long-term acute care facilities as well as home health and IV antibiotics due to the benefits and cost. At this point, the patient will be discharged to home with p.o. antibiotics per Infectious Disease. Recommend follow up in three days on Sunday for followup with wound care and application of Unna boots. The patient is to leave the dressing clean, dry, and intact until then. The Podiatry Service will continue to monitor. COREY Bennett/MODL /[id number]
--- NOTE | 2018-11-15 19:15 | NUR ---
Patient visited in room during nursing rounds. Patient alert and oriented x3. Patient with intermittent right leg pain secondary to wound on right leg covered with dressing (gauze and harjinder bandage). On scheduled IV antibiotics. Will monitor closely.
--- NOTE | 2018-11-15 19:35 | NUR ---
REPORT GIVEN TO ONCOMING NURSE, PATIENT IS RESTING IN BED. NO ACUTE DISTRESS NOTED. CALL LIGHT WITHIN REACH. BED IN THE LOWEST POSITION.
[2018-11-15] MEDS: FLUTICASONE PROPIONATE NASAL SPRAY NS SCH (20:32)
[2018-11-15] MEDS: INSULIN GLARGINE 100 UNITS/ML VIAL SQ SCH (20:32)
[2018-11-15] MEDS: LOSARTAN POTASSIUM 100 MG TAB PO SCH (20:33)
[2018-11-15] MEDS: FINASTERIDE 5 MG TAB PO SCH (20:33)
[2018-11-16] VITALS (8 sets, daily range): BP systolic 148–162; BP diastolic 72–95
[2018-11-16] MEDS: ONDANSETRON HCL INJ 2MG/ML 2ML 2 MG/ML VIAL IV PRN ×2 (00:21→04:19)
[2018-11-16] MEDS: MORPHINE SULFATE INJ 4 MG/ML INJ 1ML IV PRN ×2 (00:21→04:19)
[2018-11-16] MEDS: CIPROFLOXACIN 400 MG/D5W 200ML 200 ML IV SCH ×2 (00:27→12:31)
--- NOTE | 2018-11-16 02:47 | NUR ---
Paged Dr. Sneed (MD covering for Dr. Rasta Desai) regarding pt c/o of right leg pain and not time yet for Morphine IV dose. Awaiting on MD call back.
[2018-11-16] MEDS ORDERED: HYDROCODONE/APAP 7.5MG-325MG 1 EA TAB PO STA (03:39)
--- NOTE | 2018-11-16 03:39 | NUR ---
Received call back from Dr. Sneed and ordered x1 tab of [place] 7.5/325mg PO.
--- NOTE | 2018-11-16 03:50 | NUR ---
Patient refused Kila (that was ordered by Dr. Sneed). Patient states that Kila makes him nauseated. Pt states he will just wait for next dose of Morphine (when its due).
[2018-11-16] MEDS: PIPER-TAZ 3.375 GM 50 ML IV SCH ×4 (06:32→23:44)
[2018-11-16] MEDS: VANCOMYCIN 250MG/5ML ORAL SOLN PO SCH ×4 (06:32→23:44)
[2018-11-16] MEDS: INSULIN LISPRO 100 UNIT/1 ML 3ML VIAL SQ SCH ×4 (07:30→21:13)
[2018-11-16 08:04] LABS: BASOPHILS # (AUTO) 0.1 (0.0-0.1); BASOPHILS % 0.7 % (0.0-1.0); EOSINOPHILS # (AUTO) 0.1 (0.0-0.4); EOSINOPHILS % 1.6 % (0.0-6.0); HEMATOCRIT 39.2 % (38.2-49.6); LYMPHOCYTES # (AUTO) 1.6 (1.0-3.2); LYMPHOCYTES % 18.2 % (18.0-39.1); MEAN CORPUSCULAR HEMOGLOBIN 29.7 pg (28-32); MEAN CORPUSCULAR HGB CONC 33.2 g/dL (31-35); MEAN CORPUSCULAR VOLUME 89.7 fL (81-99); MONOCYTES % 11.8 % (4.4-11.3); NEUTROPHILS % 67.2 % (38.7-80.0); PLATELET COUNT 197 x10e3/uL (140-360); RED BLOOD COUNT 4.37 x10e6/uL (4.3-5.7); RED CELL DISTRIBUTION WIDTH 14.3 % (11.7-14.4)
[2018-11-16 08:19] LABS: BLOOD UREA NITROGEN 12 mg/dL (7-26); BUN/CREATININE RATIO 11 (6-25); CALCIUM 8.2 mg/dL (8.4-10.2); CARBON DIOXIDE 31 mmol/L (22-29); CHLORIDE 101 mmol/L (98-107); CREATININE, SERUM 1.05 mg/dL (0.72-1.25); EST GLOMERULAR FILTRATION RATE > 60 ML/MIN (60-); GLUCOSE 66 mg/dL (74-118); SODIUM 141 mmol/L (136-145)
[2018-11-16] MEDS: UBIDECARENONE 30 MG PO SCH (09:00)
[2018-11-16] MEDS: VANCOMYCIN 1GM/NS 250 ML 250 ML IV SCH ×2 (09:50→21:11)
[2018-11-16] MEDS: AMLODIPINE BESYLATE 10 MG TAB PO SCH (09:55)
[2018-11-16] MEDS: METOPROLOL TARTRATE 25 MG TAB PO SCH ×2 (09:55→17:56)
[2018-11-16] MEDS: GLIPIZIDE 5 MG TAB ER PO SCH (09:55)
[2018-11-16] MEDS: MULTIVITAMINS/MINERALS TAB PO SCH (09:55)
[2018-11-16] MEDS: TAMSULOSIN HCL 0.4 MG CAP PO SCH (09:55)
[2018-11-16] MEDS: ALLOPURINOL 300 MG TAB PO SCH (09:55)
[2018-11-16] MEDS: MESALAMINE 1.2 GM PO SCH ×2 (09:55→17:41)
[2018-11-16] MEDS: NON-FORMULARY MEDICATION (Lovastatin 20 MG) PO SCH (09:55)
[2018-11-16] MEDS: ASPIRIN 81 MG CHEW TAB PO SCH (09:55)
[2018-11-16] MEDS: LORATADINE 10 MG TAB PO SCH (09:55)
[2018-11-16] MEDS: OMEGA 3 POLYUNSAT FATTY ACIDS 1000 MG SOFTGEL PO SCH (09:55)
--- NOTE | 2018-11-16 11:10 | NUR ---
Dr. Mae rounding; dressing changed by Dr. Mae.
[2018-11-16] MEDS: POTASSIUM CHLORIDE 20 MEQ TAB CR PO SCH (12:31)
[2018-11-16] MEDS ORDERED: POTASSIUM CHLORIDE 10MEQ EA PO ONE (15:00)
--- NOTE | 2018-11-16 15:44 | Diagnostic Imaging Report ---
EXAMINATION: CHEST SINGLE (PORTABLE) INDICATION: ^pneumonia ^[id number] ^1515 ^Y COMPARISON: 11/10/2018 FINDINGS: AP view TUBES and LINES: Stable right PICC LUNGS: Lungs are well inflated. Slightly decreased left lower lung field opacification. PLEURA: No significant pleural effusion or pneumothorax. HEART AND MEDIASTINUM: The cardiomediastinal silhouette is enlarged on this AP view. BONES AND SOFT TISSUES: No acute osseous lesion. Soft tissues are unremarkable. UPPER ABDOMEN: No free air under the diaphragm. IMPRESSION: Slightly decreased left lower lung field opacification, suggestive of improving pneumonia or atelectasis/small effusion. Signed by: Dr. Eddy Xie MD on 11/16/2018 3:41 PM
--- NOTE | 2018-11-16 16:30 | Progress Note ---
DATE: Cardiology Progress Note SUBJECTIVE: The patient reports feeling well. Continues to be on IV antibiotics without any complaint. Does endorse the right lower extremity swelling with a wrapping on. No any other complaints. OBJECTIVE: VITAL SIGNS: Temperature 97.4, pulse 56, respiratory rate 20, blood pressure 162/72, and oxygen saturation 92% on room air. GENERAL: Alert and oriented x3. Resting comfortably in the chair. Does not appear to be in any acute distress. LUNGS: Clear to auscultation throughout. No wheezing. No rhonchi or crackles. CARDIOVASCULAR: Regular rate and rhythm with 2/6 systolic ejection murmur present. Normal S1 and S2. ABDOMEN: Round. Soft, nontender. LOWER EXTREMITIES: Right lower extremity 2+ edema with wrapping in place. CARDIOVASCULAR MEDICATIONS: Losartan 100 mg p.o. at bedtime, metoprolol 25 mg p.o. b.i.d., amlodipine 10 p.o. daily, hydralazine 10 mg q.4 hours p.r.n. for hypertension, omega-3 fish oil, and aspirin 81 mg p.o. daily. LABS: WBC 8.4, hemoglobin 13.0, hematocrit 39.2, and platelets 197. Sodium 141, potassium 3.0, BUN 12, and creatinine 1.05. IMPRESSION: 1. Right lower extremity wound. 2. Diabetes mellitus. 3. Hypertension. 4. Hyperlipidemia. 5. Venous insufficiency, status post ablation. RECOMMENDATIONS: Continue wound care and IV antibiotics. The patient is awaiting LTAC placement. The patient has mild residual venous insufficiency, which will be treated as an outpatient. Continue the above listed cardiac medication. Monitor blood pressure closely. If blood pressure remains elevated, we will plan to change metoprolol to carvedilol and add diuretic therapy. The patient had recent bilateral lower extremity arterial ultrasound in the office with no evidence of peripheral vascular disease. Dictated by Lori Morgan NP MD YON JenningsV/LORENA /[id number]
[2018-11-16] MEDS: LOSARTAN POTASSIUM 100 MG TAB PO SCH (21:11)
[2018-11-16] MEDS: FLUTICASONE PROPIONATE NASAL SPRAY NS SCH (21:11)
[2018-11-16] MEDS: FINASTERIDE 5 MG TAB PO SCH (21:11)
[2018-11-16] MEDS: INSULIN GLARGINE 100 UNITS/ML VIAL SQ SCH (21:13)
[2018-11-17] VITALS (7 sets, daily range): BP systolic 153–170; BP diastolic 71–89
[2018-11-17] MEDS: CIPROFLOXACIN 400 MG/D5W 200ML 200 ML IV SCH ×2 (00:45→13:00)
[2018-11-17] MEDS: MORPHINE SULFATE INJ 4 MG/ML INJ 1ML IV PRN ×2 (01:15→10:20)
[2018-11-17] MEDS: ONDANSETRON HCL INJ 2MG/ML 2ML 2 MG/ML VIAL IV PRN ×2 (01:15→10:20)
[2018-11-17] MEDS: PIPER-TAZ 3.375 GM 50 ML IV SCH ×4 (06:16→23:52)
[2018-11-17] MEDS: VANCOMYCIN 250MG/5ML ORAL SOLN PO SCH ×4 (06:16→23:52)
[2018-11-17] MEDS: INSULIN LISPRO 100 UNIT/1 ML 3ML VIAL SQ SCH ×4 (07:30→21:11)
[2018-11-17] MEDS: METOPROLOL TARTRATE 25 MG TAB PO SCH ×2 (09:00→17:35)
[2018-11-17] MEDS: GLIPIZIDE 5 MG TAB ER PO SCH (09:00)
[2018-11-17] MEDS: AMLODIPINE BESYLATE 10 MG TAB PO SCH (09:00)
[2018-11-17] MEDS: TAMSULOSIN HCL 0.4 MG CAP PO SCH (09:00)
[2018-11-17] MEDS: NON-FORMULARY MEDICATION (Lovastatin 20 MG) PO SCH (09:00)
[2018-11-17] MEDS: LORATADINE 10 MG TAB PO SCH (09:00)
[2018-11-17] MEDS: ALLOPURINOL 300 MG TAB PO SCH (09:00)
[2018-11-17] MEDS: MULTIVITAMINS/MINERALS TAB PO SCH (09:00)
[2018-11-17] MEDS: OMEGA 3 POLYUNSAT FATTY ACIDS 1000 MG SOFTGEL PO SCH (09:00)
[2018-11-17] MEDS: MESALAMINE 1.2 GM PO SCH ×2 (09:00→17:35)
[2018-11-17] MEDS: ASPIRIN 81 MG CHEW TAB PO SCH (09:00)
[2018-11-17] MEDS: UBIDECARENONE 30 MG PO SCH (09:00)
[2018-11-17] MEDS: POTASSIUM CHLORIDE 20 MEQ TAB CR PO SCH (09:00)
[2018-11-17 09:15] LABS: BASOPHILS # (AUTO) 0.1 (0.0-0.1); BASOPHILS % 0.6 % (0.0-1.0); EOSINOPHILS # (AUTO) 0.2 (0.0-0.4); EOSINOPHILS % 1.9 % (0.0-6.0); HEMATOCRIT 39.6 % (38.2-49.6); HEMOGLOBIN 13.1 g/dL (14.0-18.0); LYMPHOCYTES # (AUTO) 1.1 (1.0-3.2); LYMPHOCYTES % 12.4 % (18.0-39.1); MEAN CORPUSCULAR HEMOGLOBIN 29.7 pg (28-32); MEAN CORPUSCULAR HGB CONC 33.1 g/dL (31-35); MEAN CORPUSCULAR VOLUME 89.8 fL (81-99); NEUTROPHILS # (AUTO) 6.5 (2.1-6.9); NEUTROPHILS % 73.8 % (38.7-80.0); PLATELET COUNT 199 x10e3/uL (140-360); RED BLOOD COUNT 4.41 x10e6/uL (4.3-5.7)
[2018-11-17] MEDS: VANCOMYCIN 1GM/NS 250 ML 250 ML IV SCH ×2 (09:30→21:50)
[2018-11-17 09:38] LABS: ANION GAP 11.5 mmol/L (8-16); BLOOD UREA NITROGEN 13 mg/dL (7-26); BUN/CREATININE RATIO 12 (6-25); CALCIUM 8.3 mg/dL (8.4-10.2); CARBON DIOXIDE 31 mmol/L (22-29); CHLORIDE 103 mmol/L (98-107); CREATININE, SERUM 1.11 mg/dL (0.72-1.25); EST GLOMERULAR FILTRATION RATE > 60 ML/MIN (60-); GLUCOSE 115 mg/dL (74-118); POTASSIUM 3.5 mmol/L (3.5-5.1); SODIUM 142 mmol/L (136-145)
--- NOTE | 2018-11-17 14:00 | Progress Note ---
DATE: Cardiology Progress Note SUBJECTIVE: The patient has no complaints this morning, states that he feels well, he is just waiting for transfer and continuation of antibiotics. Denies any chest pain. Continues to have right lower extremity swelling. OBJECTIVE: VITAL SIGNS: Temperature 97.7, pulse 57, respiratory rate 16, blood pressure 157/78, oxygen saturation 98% on room air. GENERAL: Alert and oriented x3. Resting comfortably in bed. Does not appear to be in any acute distress. LUNGS: Clear to auscultation throughout. No wheezing. No rhonchi or crackles. CARDIOVASCULAR: Regular rate and rhythm. A 2/6 systolic ejection murmur present. Normal S1 and S2. ABDOMEN: Rounded, soft, nontender. LOWER EXTREMITIES: Right lower extremity 2+ edema with wound in place and wrapping in place. CARDIOVASCULAR MEDICATIONS: Metoprolol 25 mg p.o. b.i.d., amlodipine 10 mg p.o. at bedtime, potassium chloride 20 mEq p.o. daily, lovastatin 20 mg p.o. daily, aspirin 81 mg p.o. daily, hydralazine 10 mg IV push p.r.n. for hypertension. LABORATORY DATA: WBC 8.79, hemoglobin 13.1, hematocrit 39.6, platelets 196. Sodium 142, potassium 3.5, BUN 13, creatinine 1.1. IMPRESSION: 1. Right lower extremity wound. 2. Diabetes mellitus. 3. Hypertension. 4. Hyperlipidemia. 5. Venous insufficiency status post venous ablation. RECOMMENDATION: Continue wound care and IV antibiotic per primary team. The patient is awaiting LTAC placement. The patient has mild residual venous insufficiency, which he will need treatment as outpatient. Continue the above-listed cardiac medication. Monitor blood pressure closely. The patient had a recent bilateral lower extremity arterial Doppler in the office with no evidence of peripheral vascular disease. Dictated by Lori Morgan, CRIS MD LETTY Jennings/LOREAN /[id number]
--- NOTE | 2018-11-17 19:30 | NUR ---
Patient visited in room during nursing rounds. Patient currently sitting on recliner chair and watching t.v. Patient alert and oriented x3. Patient with intermittent right leg pain secondary to wound on right leg covered with dressing (gauze and harjinder bandage). On scheduled IV antibiotics. Call snowden within reach. Will monitor closely.
[2018-11-17] MEDS: FINASTERIDE 5 MG TAB PO SCH (21:10)
[2018-11-17] MEDS: LOSARTAN POTASSIUM 100 MG TAB PO SCH (21:10)
[2018-11-17] MEDS: FLUTICASONE PROPIONATE NASAL SPRAY NS SCH (21:10)
--- NOTE | 2018-11-17 21:10 | NUR ---
Patient having a bath at this time. Pt condition stable.
[2018-11-17] MEDS: INSULIN GLARGINE 100 UNITS/ML VIAL SQ SCH (21:11)
[2018-11-18] VITALS (7 sets, daily range): BP systolic 142–169; BP diastolic 80–92
[2018-11-18] MEDS: MORPHINE SULFATE INJ 4 MG/ML INJ 1ML IV PRN (00:10)
[2018-11-18] MEDS: ONDANSETRON HCL INJ 2MG/ML 2ML 2 MG/ML VIAL IV PRN (00:10)
[2018-11-18] MEDS: CIPROFLOXACIN 400 MG/D5W 200ML 200 ML IV SCH ×2 (00:50→11:00)
[2018-11-18] MEDS: VANCOMYCIN 250MG/5ML ORAL SOLN PO SCH ×3 (05:25→17:30)
[2018-11-18] MEDS: PIPER-TAZ 3.375 GM 50 ML IV SCH ×3 (05:25→17:30)
--- NOTE | 2018-11-18 07:11 | NUR ---
RECEIVED REPORT FROM NIGHT NURSE, WALKING ROUNDS DONE. PATIENT IS IN STABLE CONDITION. RESPIRATIONS EVEN AND UNLABORED, NO ACUTE DISTRESS NOTED. PAIN AT A TOLERABLE LEVEL AT THIS TIME. CALL LIGHT WITHIN REACH. BED IN THE LOWEST POSITION.
[2018-11-18 07:14] LABS: ALANINE AMINOTRANSFERASE 14 IU/L (0-55); ALBUMIN 2.8 g/dL (3.5-5.0); ALBUMIN/GLOBULIN RATIO 0.8 (0.8-2.0); ALKALINE PHOSPHATASE 67 IU/L (40-150); ANION GAP 10.3 mmol/L (8-16); BLOOD UREA NITROGEN 15 mg/dL (7-26); BUN/CREATININE RATIO 14 (6-25); CALCIUM 8.1 mg/dL (8.4-10.2); CARBON DIOXIDE 31 mmol/L (22-29); CHLORIDE 103 mmol/L (98-107); CREATININE, SERUM 1.05 mg/dL (0.72-1.25); EST GLOMERULAR FILTRATION RATE > 60 ML/MIN (60-); GLUCOSE 83 mg/dL (74-118); POTASSIUM 3.3 mmol/L (3.5-5.1); SODIUM 141 mmol/L (136-145)
[2018-11-18 07:27] LABS: BASOPHILS # (AUTO) 0.1 (0.0-0.1); BASOPHILS % 0.6 % (0.0-1.0); EOSINOPHILS # (AUTO) 0.1 (0.0-0.4); EOSINOPHILS % 1.5 % (0.0-6.0); HEMOGLOBIN 12.6 g/dL (14.0-18.0); LYMPHOCYTES % 11.9 % (18.0-39.1); MEAN CORPUSCULAR HEMOGLOBIN 29.9 pg (28-32); MEAN CORPUSCULAR HGB CONC 33.2 g/dL (31-35); MEAN CORPUSCULAR VOLUME 90.3 fL (81-99); MONOCYTES # (AUTO) 0.9 (0.2-0.8); MONOCYTES % 10.5 % (4.4-11.3); NEUTROPHILS # (AUTO) 6.5 (2.1-6.9); NEUTROPHILS % 75.3 % (38.7-80.0); PLATELET COUNT 194 x10e3/uL (140-360); RED BLOOD COUNT 4.21 x10e6/uL (4.3-5.7)
[2018-11-18] MEDS: INSULIN LISPRO 100 UNIT/1 ML 3ML VIAL SQ SCH ×3 (07:30→16:37)
[2018-11-18] MEDS: UBIDECARENONE 30 MG PO SCH (09:00)
[2018-11-18] MEDS: ALLOPURINOL 300 MG TAB PO SCH (09:28)
[2018-11-18] MEDS: OMEGA 3 POLYUNSAT FATTY ACIDS 1000 MG SOFTGEL PO SCH (09:28)
[2018-11-18] MEDS: AMLODIPINE BESYLATE 10 MG TAB PO SCH (09:29)
[2018-11-18] MEDS: MULTIVITAMINS/MINERALS TAB PO SCH (09:29)
[2018-11-18] MEDS: METOPROLOL TARTRATE 25 MG TAB PO SCH ×2 (09:29→17:30)
[2018-11-18] MEDS: NON-FORMULARY MEDICATION (Lovastatin 20 MG) PO SCH (09:30)
[2018-11-18] MEDS: ASPIRIN 81 MG CHEW TAB PO SCH (09:30)
[2018-11-18] MEDS: POTASSIUM CHLORIDE 20 MEQ TAB CR PO SCH (09:30)
[2018-11-18] MEDS: GLIPIZIDE 5 MG TAB ER PO SCH (09:30)
[2018-11-18] MEDS: TAMSULOSIN HCL 0.4 MG CAP PO SCH (09:30)
[2018-11-18] MEDS: VANCOMYCIN 1GM/NS 250 ML 250 ML IV SCH (09:30)
[2018-11-18] MEDS: LORATADINE 10 MG TAB PO SCH (09:30)
[2018-11-18] MEDS: MESALAMINE 1.2 GM PO SCH ×2 (09:30→17:30)
--- NOTE | 2018-11-18 10:29 | Progress Note ---
DATE: 11/18/2018 SUBJECTIVE: This is a 73-year-old male with past medical history of type 2 diabetes, peripheral vascular disease, and venous stasis, who was admitted through the emergency room approximately 11 days ago for a worsening infection to his right leg. The patient continues to have intermittent moderate pain to the right leg. He currently denies nausea, vomiting, fever, chills, chest pain, or shortness of breath. He relates that his previous diarrhea has resolved. No acute issues overnight. OBJECTIVE: VITAL SIGNS: Today temperature 96.5, heart rate 62, respiratory rate 19, blood pressure 157/87, pulse ox is 94% on nasal cannula. PROBLEM FOCUSED LOWER EXTREMITY PHYSICAL EXAM: VASCULAR: Dorsalis pedis and posterior tibial pulses are palpable. Capillary refill time is less than 2 seconds in all digits. Negative periwound erythema, edema, or warmth. +1 pitting edema is still present. NEUROLOGICAL: Sensation is intact to the level of digits. MUSCULOSKELETAL: Pain on palpation to the ulceration. DERMATOLOGICAL: Wound remains stable. It is approximately 70% granular, 30% fibrotic with no local acute signs of infection. LABS: White blood cell count is 8.5, hemoglobin 12.6, hematocrit 38.0, platelet count 194. Sodium 141, potassium 3.3, chloride 103, CO2 of 31, BUN 15, creatinine 1.05, glucose is 79. PLAN: The patient was seen and evaluated. I discussed condition and treatment options with the patient in detail. The patient continues to be afebrile with no leukocytosis and local acute signs of infection of the wound are improved. Wound dressing changed today with Xeroform, 4x4s, Kerlix, and an Thom wrap. Insurance is still pending as far as LTAC and at-home antibiotics. Apparently, the patient did not feel comfortable being discharged on just oral antibiotics over the weekend and insurance approval is still pending. His latest wound culture was negative with no organism seen after 72 hours. The patient is stable to be discharged from Podiatry standpoint once insurance approval has been achieved. The patient also is stable to be discharged on oral antibiotics based on most recent culture. The Podiatry service will continue to monitor as inpatient. COREY Bennett/LORENA Waters: 11/18/2018 08:22:27 /[id number]
[2018-11-18] MEDS ORDERED: POTASSIUM CHLORIDE 20 MEQ TAB CR PO NR (11:30)
[2018-11-18] MEDS: ACETAMINOPHEN 325 MG TAB PO PRN (12:34)
--- NOTE | 2018-11-18 14:00 | NUR ---
Met with pt and explained IMM letter. He verbalized understanding and signed it. Copy given to him, original placed in chart.
--- NOTE | 2018-11-18 16:00 | NUR ---
Met with pt regarding order for home IV antibiotics. He refused to sign choice letter until he speaks with ID. He states his cultures are negative and he doesn't understand why he needs IV antibiotics. CM notified his nurse of his concerns and that he wants to speak with ID.
--- NOTE | 2018-11-18 17:31 | NUR ---
PAGED DR. METZGER TO NOTIFY HIM THAT PATIENT IS GOING TO BE DISCHARGED.
--- NOTE | 2018-11-18 18:47 | Progress Note ---
DATE: 11/18/2018 Cardiology Progress Note SUBJECTIVE: The patient denies chest pain or shortness of breath. OBJECTIVE: VITAL SIGNS: Temperature 97.3 degrees, pulse 60, respiratory rate 19, blood pressure 164/81, oxygen sat 93%. GENERAL: Awake, alert, in no acute distress. LUNGS: Clear to auscultation bilaterally. No wheezes or crackles. CARDIOVASCULAR: Normal rate, regular rhythm. No murmur. Normal S1, S2. ABDOMEN: Soft, nontender. EXTREMITIES: No edema. Dressing present on the right lower extremity. CARDIAC MEDICATIONS: Aspirin 81 mg p.o. daily, amlodipine 10 mg p.o. daily, metoprolol tartrate 25 mg p.o. b.i.d., and losartan 100 mg p.o. at bedtime. LABORATORY DATA: WBC 8.58, hemoglobin 12.6, hematocrit 38, platelets 194. Sodium 141, potassium 3.3, chloride 103, CO2 of 31, BUN 15, creatinine 1.05. IMPRESSION: 1. Right lower extremity wound. 2. Diabetes mellitus. 3. Hypertension. 4. Hyperlipidemia. 5. Venous insufficiency status post venous ablation. RECOMMENDATIONS: Continue wound care and IV antibiotics per primary team. The patient has mild residual venous insufficiency, which will need treatment as an outpatient. Continue current cardiac medications. Monitor blood pressure closely. The patient had bilateral lower extremity arterial Doppler performed at the office without evidence of peripheral arterial disease. No further cardiac evaluation is indicated at this time. Thank you for this consult. We will continue to follow. Kalli Simmons MD ABS/MODL /[id number]
--- NOTE | 2018-11-18 18:47 | NUR ---
RECEIVED DC ORDER FROM . PATIENT IS IN STABLE CONDITION. PICC LINE TO RIGHT UPPER ARM DISCONTINUED AT 1823 WITH TIP INTACT, PRESSURE APPLIED TO SITE, NO BLEEDING NOTED. DISCHARGE TEACHING PROVIDED TO PATIENT AND , THEY BOTH VERBALIZED UNDERSTANDING. DISCHARGE FOLDER AND PERSONAL ITEMS ON HAND. PATIENT ACCOMPANIED TO PRIVATE AUTO VIA WHEELCHAIR BY STAFF.
--- NOTE | 2018-11-18 21:03 | Progress Note ---
DATE: SUBJECTIVE: Mr. Morgan is doing better. He said his wound is healing. There is no more drainage, no redness, no swelling. Repeat cultures came back negative. His diarrhea also is getting better. PHYSICAL EXAMINATION: GENERAL: He is currently alert, oriented, does not seem to be in acute distress. VITAL SIGNS: Stable, afebrile. HEENT: Not icteric. NECK: Supple. CHEST: Clear. HEART: S1 and S2. No S3, S4, or murmur. ABDOMEN: Soft. Bowel sounds present. No tenderness. EXTREMITIES: No edema. IMPRESSION: Tendinitis, seems to be getting better. Continue with local care, status post 14 days of antibiotics. I am going to discontinue the IV antibiotic and discontinue the PICC line. Observe the patient clinically since I am more worried about his Clostridium difficile at the present time. Discussed with the patient's Clostridium difficile. He will discharge home with oral Flagyl 500 mg p.o. t.i.d. since his diarrhea has resolved. To call me if he gets worse. Other medical problems seem to be stable. PLAN: We will follow with you. MD OTIS Chavis/LORENA /[id number]
== END 2018-11-18 18:50 | DRG 264 ==
LOC: ER 18:17 → ERHOLD 11-06 04:31 → MED/SURG3 11-06 15:00
PROC: 02HV33Z Insertion of Infusion Device into Superior Vena Cava, Percutaneous Approach (ICD-10-PCS; principal; 2018-11-10)
PROC: 0JBQ0ZZ Excision of Right Foot Subcutaneous Tissue and Fascia, Open Approach (ICD-10-PCS; 2018-11-15)
DX: E11.51 Type 2 diabetes mellitus with diabetic peripheral angiopathy without gangrene (principal); A41.9 Sepsis, unspecified organism; J18.9 Pneumonia, unspecified organism; L97.919 Non-pressure chronic ulcer of unspecified part of right lower leg with unspecified severity; N39.0 Urinary tract infection, site not specified; L03.115 Cellulitis of right lower limb; A04.72 Enterocolitis due to Clostridium difficile, not specified as recurrent; I73.9 Peripheral vascular disease, unspecified; I87.2 Venous insufficiency (chronic) (peripheral); M77.9 Enthesopathy, unspecified; E66.9 Obesity, unspecified; Z68.28 Body mass index [BMI] 28.0-28.9, adult; B95.2 Enterococcus as the cause of diseases classified elsewhere; Z16.22 Resistance to vancomycin related antibiotics; B96.89 Other specified bacterial agents as the cause of diseases classified elsewhere; E11.40 Type 2 diabetes mellitus with diabetic neuropathy, unspecified; M76.891 Other specified enthesopathies of right lower limb, excluding foot
CPT/HCPCS: 36415; 36569; 71045; 71046; 71260; 80048; 80053; 80202; 81001; 82948; 83605; 85025; 85379; 85610; 85730; 87040; 87071; 87086; 87186; 87205; 87400; 87493; 99285; J0360; J1815; J2001; J2270; J2405; J2543; J3370; J7030; Q9967

== ENCOUNTER → 2022-03-16 | Outpatient (CLI) | payer MEDICARE ==
[~2022-03-16] MED LIST changes: +DOXYCYCLINE HY100 MG PO; +IOPAMIDOL 370 MG/ML 100 ML INFUS..BTL INJ ONE
[2022-03-16 16:53] LABS: CREATININE, SERUM 1.13 mg/dL (0.72-1.25)
== END ==
LOC: CT 16:03
PROVIDERS: ATTEND Family Medicine
DX: R11.2 Nausea with vomiting, unspecified (principal); R10.10 Upper abdominal pain, unspecified
CPT/HCPCS: 36415; 74177; 82565; 84520; Q9967

== ENCOUNTER 2022-07-07 12:17 | Inpatient (IN) | payer MEDICARE ==
[~2022-07-07] VITALS: Ht 188 cm; Wt 101.6 kg
[~2022-07-07 12:17] MED LIST changes: -IOPAMIDOL 370 MG/ML 100 ML INFUS..BTL INJ ONE
[2022-07-07] MEDS ORDERED: PIPERACILLIN/TAZOBACTAM 3.375 GM VIAL ONE (13:26)
[2022-07-07] MEDS ORDERED: SODIUM CHLORIDE 0.9% 100 ML ONE (13:27)
[2022-07-07 13:42] LABS: BASOPHILS # (AUTO) 0.1 (0.0-0.1); BASOPHILS % 0.6 % (0.0-1.0); EOSINOPHILS # (AUTO) 0.2 (0.0-0.4); HEMATOCRIT 40.6 % (38.2-49.6); HEMOGLOBIN 13.5 g/dL (14.0-18.0); LYMPHOCYTES # (AUTO) 1.1 (1.0-3.2); LYMPHOCYTES % 12.3 % (18.0-39.1); MEAN CORPUSCULAR HEMOGLOBIN 31.3 pg (28-32); MEAN CORPUSCULAR HGB CONC 33.3 g/dL (31-35); MEAN CORPUSCULAR VOLUME 94.2 fL (81-99); MONOCYTES # (AUTO) 0.8 (0.2-0.8); MONOCYTES % 8.5 % (4.4-11.3); NEUTROPHILS # (AUTO) 6.7 (2.1-6.9); NEUTROPHILS % 76.3 % (38.7-80.0); PLATELET COUNT 183 x10e3/uL (140-360); RED BLOOD COUNT 4.31 x10e6/uL (4.3-5.7); RED CELL DISTRIBUTION WIDTH 13.2 % (11.7-14.4)
[2022-07-07] MEDS: HYDROCODONE/APAP 7.5MG-325MG 1 EA TAB PO PRN ×2 (13:46→20:23)
[2022-07-07 13:53] LABS: ALANINE AMINOTRANSFERASE 12 IU/L (0-55); ALBUMIN 3.5 g/dL (3.5-5.0); ALKALINE PHOSPHATASE 76 IU/L (40-150); ANION GAP 17.7 mmol/L (8-16); BLOOD UREA NITROGEN 26 mg/dL (7-26); BUN/CREATININE RATIO 22 (6-25); CALCIUM 8.6 mg/dL (8.4-10.2); CARBON DIOXIDE 21 mmol/L (22-29); CHLORIDE 101 mmol/L (98-107); CREATININE, SERUM 1.18 mg/dL (0.72-1.25); GLUCOSE 299 mg/dL (74-118); POTASSIUM 3.7 mmol/L (3.5-5.1); SODIUM 136 mmol/L (136-145)
[2022-07-07] MEDS: Vancomycin IV 1 GM in SODIUM CHLORIDE 0.9% 250ML 250 ML IV SCH (16:17)
[2022-07-07 16:34] VITALS: BP 132/72
[2022-07-07 16:47] VITALS: BP 132/63
[2022-07-07] MEDS: INSULIN REGULAR, HUMAN 100 UNIT/1 ML SQ SCH ×2 (17:38→20:32)
[2022-07-07 22:42] VITALS: BP 132/63
[2022-07-07] MEDS: SODIUM CHLORIDE 0.9% 1000ML 1,000 ML IV SCH (23:57)
[2022-07-08] VITALS: BP 148/81
[2022-07-08] MEDS: Vancomycin IV 1 GM in SODIUM CHLORIDE 0.9% 250ML 250 ML IV SCH ×2 (03:10→13:58)
[2022-07-08] MEDS: HYDROCODONE/APAP 7.5MG-325MG 1 EA TAB PO PRN ×2 (03:11→10:12)
[2022-07-08 04:00] VITALS: BP 142/65
[2022-07-08 05:44] LABS: BASOPHILS % 0.6 % (0.0-1.0); EOSINOPHILS # (AUTO) 0.3 (0.0-0.4); EOSINOPHILS % 4.4 % (0.0-6.0); HEMATOCRIT 38.6 % (38.2-49.6); HEMOGLOBIN 12.4 g/dL (14.0-18.0); LYMPHOCYTES % 13.8 % (18.0-39.1); MEAN CORPUSCULAR HEMOGLOBIN 30.7 pg (28-32); MEAN CORPUSCULAR HGB CONC 32.1 g/dL (31-35); MEAN CORPUSCULAR VOLUME 95.5 fL (81-99); MONOCYTES # (AUTO) 0.8 (0.2-0.8); NEUTROPHILS # (AUTO) 5.1 (2.1-6.9); NEUTROPHILS % 69.9 % (38.7-80.0); PLATELET COUNT 162 x10e3/uL (140-360); RED BLOOD COUNT 4.04 x10e6/uL (4.3-5.7); RED CELL DISTRIBUTION WIDTH 13.1 % (11.7-14.4)
[2022-07-08 05:59] LABS: ANION GAP 12.5 mmol/L (8-16); CALCIUM 8.4 mg/dL (8.4-10.2); CREATININE, SERUM 0.84 mg/dL (0.72-1.25); POTASSIUM 4.5 mmol/L (3.5-5.1)
[2022-07-08] MEDS: INSULIN REGULAR, HUMAN 100 UNIT/1 ML SQ SCH ×4 (07:30→21:00)
[2022-07-08 08:03] VITALS: BP 150/73
[2022-07-08] MEDS: SODIUM CHLORIDE 0.9% 1000ML 1,000 ML IV SCH (10:02)
[2022-07-08] MEDS ORDERED: ONDANSETRON HCL INJ 2MG/ML 2ML 2 MG/ML VIAL IV PRN (11:45)
[2022-07-08] MEDS ORDERED: HYDRALAZINE HCL 20 MG/ML VIAL IV PRN (11:45)
[2022-07-08 11:49] VITALS: BP 145/89
[2022-07-08] MEDS: GABAPENTIN 100 MG CAP PO SCH ×3 (14:00→21:00)
[2022-07-08] MEDS: AMLODIPINE BESYLATE 5 MG TAB PO SCH (14:00)
[2022-07-08] MEDS: ACETAMINOPHEN/CODEINE 300MG - 30MG TAB PO PRN ×2 (14:22→18:43)
[2022-07-08 16:06] VITALS: BP 148/83
[2022-07-08] MEDS: MESALAMINE 400 MG CAP PO SCH (16:45)
[2022-07-08] MEDS: METOPROLOL TARTRATE 25 MG TAB PO SCH (16:48)
[2022-07-08] MEDS: TAMSULOSIN HCL 0.4 MG CAP PO SCH (17:00)
[2022-07-08 20:00] VITALS: BP 143/65
[2022-07-08] MEDS: LOSARTAN POTASSIUM 100 MG TAB PO SCH (21:00)
[2022-07-08] MEDS: FINASTERIDE 5 MG TAB PO SCH (21:00)
[2022-07-08] MEDS: INSULIN GLARGINE 100 UNITS/ML VIAL SQ SCH (21:00)
[2022-07-08] MEDS: DEXTROSE 50% SYRINGE 50 ML IV PRN (23:15)
[2022-07-09] VITALS (8 sets, daily range): BP systolic 109–157; BP diastolic 53–94
[2022-07-09] MEDS: DEXTROSE 50% SYRINGE 50 ML IV PRN (00:36)
[2022-07-09] MEDS: ACETAMINOPHEN/CODEINE 300MG - 30MG TAB PO PRN ×5 (01:22→21:23)
[2022-07-09] MEDS: Vancomycin IV 1 GM in SODIUM CHLORIDE 0.9% 250ML 250 ML IV SCH ×2 (03:00→16:53)
[2022-07-09] MEDS ORDERED: SODIUM CHLORIDE 0.9% 250ML 250 ML ONE (03:30)
[2022-07-09] MEDS: INSULIN REGULAR, HUMAN 100 UNIT/1 ML SQ SCH ×4 (07:30→21:34)
[2022-07-09] MEDS: MESALAMINE 400 MG CAP PO SCH ×2 (08:40→16:54)
[2022-07-09] MEDS: AMLODIPINE BESYLATE 5 MG TAB PO SCH (08:41)
[2022-07-09] MEDS: GLIPIZIDE 5 MG TAB ER PO SCH (08:41)
[2022-07-09] MEDS: ALLOPURINOL 300 MG TAB PO SCH (08:41)
[2022-07-09] MEDS: TAMSULOSIN HCL 0.4 MG CAP PO SCH (08:41)
[2022-07-09] MEDS: METOPROLOL TARTRATE 25 MG TAB PO SCH ×2 (08:42→16:54)
[2022-07-09] MEDS: GABAPENTIN 100 MG CAP PO SCH ×3 (09:00→21:25)
[2022-07-09] MEDS: FINASTERIDE 5 MG TAB PO SCH (21:25)
[2022-07-09] MEDS: LOSARTAN POTASSIUM 100 MG TAB PO SCH (21:25)
[2022-07-09] MEDS: INSULIN GLARGINE 100 UNITS/ML VIAL SQ SCH (21:35)
[2022-07-10] VITALS (8 sets, daily range): BP systolic 112–158; BP diastolic 59–86
[2022-07-10] MEDS: ACETAMINOPHEN/CODEINE 300MG - 30MG TAB PO PRN ×5 (01:54→22:32)
[2022-07-10] MEDS: Vancomycin IV 1 GM in SODIUM CHLORIDE 0.9% 250ML 250 ML IV SCH ×2 (03:32→16:44)
[2022-07-10] MEDS: INSULIN REGULAR, HUMAN 100 UNIT/1 ML SQ SCH ×4 (07:30→21:00)
[2022-07-10] MEDS: TAMSULOSIN HCL 0.4 MG CAP PO SCH (08:55)
[2022-07-10] MEDS: MESALAMINE 400 MG CAP PO SCH ×2 (08:55→16:44)
[2022-07-10] MEDS: METOPROLOL TARTRATE 25 MG TAB PO SCH ×2 (08:56→16:48)
[2022-07-10] MEDS: GABAPENTIN 100 MG CAP PO SCH ×3 (08:56→20:36)
[2022-07-10] MEDS: AMLODIPINE BESYLATE 5 MG TAB PO SCH (08:56)
[2022-07-10] MEDS: GLIPIZIDE 5 MG TAB ER PO SCH (08:57)
[2022-07-10] MEDS: ALLOPURINOL 300 MG TAB PO SCH (08:57)
[2022-07-10] MEDS ORDERED: ONDANSETRON HCL 4 MG ORAL DISINTEGRATING TAB PO PRN (12:45)
[2022-07-10] MEDS ORDERED: IOPAMIDOL 370 MG/ML 100 ML INFUS..BTL INJ ONE (18:15)
[2022-07-10] MEDS: FINASTERIDE 5 MG TAB PO SCH (20:36)
[2022-07-10] MEDS: LOSARTAN POTASSIUM 100 MG TAB PO SCH (20:36)
[2022-07-10] MEDS: INSULIN GLARGINE 100 UNITS/ML VIAL SQ SCH (21:00)
[2022-07-11] VITALS (8 sets, daily range): BP systolic 136–158; BP diastolic 73–89
[2022-07-11] MEDS: Vancomycin IV 1 GM in SODIUM CHLORIDE 0.9% 250ML 250 ML IV SCH ×2 (03:00→16:00)
[2022-07-11] MEDS: ACETAMINOPHEN/CODEINE 300MG - 30MG TAB PO PRN ×3 (03:00→17:43)
[2022-07-11] MEDS: INSULIN REGULAR, HUMAN 100 UNIT/1 ML SQ SCH ×4 (08:00→21:52)
[2022-07-11] MEDS: ALLOPURINOL 300 MG TAB PO SCH (10:00)
[2022-07-11] MEDS: TAMSULOSIN HCL 0.4 MG CAP PO SCH (10:00)
[2022-07-11] MEDS: GLIPIZIDE 5 MG TAB ER PO SCH (10:00)
[2022-07-11] MEDS: GABAPENTIN 100 MG CAP PO SCH ×3 (10:00→21:49)
[2022-07-11] MEDS: AMLODIPINE BESYLATE 5 MG TAB PO SCH (10:00)
[2022-07-11] MEDS: MESALAMINE 400 MG CAP PO SCH ×2 (10:00→17:21)
[2022-07-11] MEDS: METOPROLOL TARTRATE 25 MG TAB PO SCH ×2 (10:01→17:22)
[2022-07-11] MEDS: LOSARTAN POTASSIUM 100 MG TAB PO SCH (21:47)
[2022-07-11] MEDS: FINASTERIDE 5 MG TAB PO SCH (21:49)
[2022-07-11] MEDS: INSULIN GLARGINE 100 UNITS/ML VIAL SQ SCH (21:51)
[2022-07-12] VITALS (8 sets, daily range): BP systolic 113–180; BP diastolic 71–91
[2022-07-12] MEDS: ACETAMINOPHEN/CODEINE 300MG - 30MG TAB PO PRN ×5 (00:39→21:34)
[2022-07-12] MEDS: Vancomycin IV 1 GM in SODIUM CHLORIDE 0.9% 250ML 250 ML IV SCH ×2 (05:12→15:34)
[2022-07-12] MEDS: INSULIN REGULAR, HUMAN 100 UNIT/1 ML SQ SCH ×4 (08:00→21:31)
[2022-07-12] MEDS: GLIPIZIDE 5 MG TAB ER PO SCH (09:58)
[2022-07-12] MEDS: AMLODIPINE BESYLATE 5 MG TAB PO SCH (09:58)
[2022-07-12] MEDS: TAMSULOSIN HCL 0.4 MG CAP PO SCH (09:58)
[2022-07-12] MEDS: MESALAMINE 400 MG CAP PO SCH ×2 (09:58→16:09)
[2022-07-12] MEDS: METOPROLOL TARTRATE 25 MG TAB PO SCH ×2 (09:59→17:00)
[2022-07-12] MEDS: GABAPENTIN 100 MG CAP PO SCH ×3 (09:59→21:34)
[2022-07-12] MEDS: ALLOPURINOL 300 MG TAB PO SCH (09:59)
[2022-07-12] MEDS: INSULIN GLARGINE 100 UNITS/ML VIAL SQ SCH (21:32)
[2022-07-12] MEDS: FINASTERIDE 5 MG TAB PO SCH (21:35)
[2022-07-12] MEDS: LOSARTAN POTASSIUM 100 MG TAB PO SCH (21:35)
[2022-07-13] VITALS: BP_SYST 131; BP_SYST 170; BP_DIAS 65; BP_DIAS 69
[2022-07-13] MEDS: ACETAMINOPHEN/CODEINE 300MG - 30MG TAB PO PRN ×4 (01:50→14:17)
[2022-07-13] MEDS: Vancomycin IV 1 GM in SODIUM CHLORIDE 0.9% 250ML 250 ML IV SCH ×2 (03:53→14:13)
[2022-07-13 04:00] VITALS: BP 112/77
[2022-07-13] MEDS ORDERED: LIDOCAINE HCL 2% JELLY 5 ML TUBE TOP PRN (08:15)
[2022-07-13 08:19] VITALS: BP 139/75
[2022-07-13] MEDS: AMLODIPINE BESYLATE 5 MG TAB PO SCH (08:28)
[2022-07-13] MEDS: METOPROLOL TARTRATE 25 MG TAB PO SCH (08:28)
[2022-07-13] MEDS: GABAPENTIN 100 MG CAP PO SCH ×2 (08:29→15:49)
[2022-07-13] MEDS: TAMSULOSIN HCL 0.4 MG CAP PO SCH (08:29)
[2022-07-13] MEDS: GLIPIZIDE 5 MG TAB ER PO SCH (08:29)
[2022-07-13] MEDS: MESALAMINE 400 MG CAP PO SCH (08:29)
[2022-07-13] MEDS: INSULIN REGULAR, HUMAN 100 UNIT/1 ML SQ SCH ×2 (08:29→11:38)
[2022-07-13] MEDS: ALLOPURINOL 300 MG TAB PO SCH (08:29)
[2022-07-13] MEDS ORDERED: SODIUM CHLORIDE FLUSH 10 ML SYR IV SCH (09:00)
[2022-07-13] MEDS ORDERED: LIDOCAINE HCL 5% OINMENT 35.44 GM TUBE TP PRN (09:30)
[2022-07-13 12:26] VITALS: BP 145/79
[2022-07-13] MEDS ORDERED: CEFTRIAXONE 2 GM in SODIUM CHLORIDE 0.9% 100 ML IV SCH (12:30)
== END 2022-07-13 16:25 | disposition home or self-care (01) | DRG 638 ==
LOC: ER 12:36 → ERHOLD 13:22 → MED/SURG2 15:41
PROVIDERS: ADMIT Internal Medicine; ATTEND Internal Medicine
PROC: 05HY33Z Insertion of Infusion Device into Upper Vein, Percutaneous Approach (ICD-10-PCS; principal; 2022-07-07)
PROC: 02HV33Z Insertion of Infusion Device into Superior Vena Cava, Percutaneous Approach (ICD-10-PCS; 2022-07-12)
DX: E11.621 Type 2 diabetes mellitus with foot ulcer (principal); L03.116 Cellulitis of left lower limb; M86.8X7 Other osteomyelitis, ankle and foot; L97.422 Non-pressure chronic ulcer of left heel and midfoot with fat layer exposed; Z79.4 Long term (current) use of insulin; E11.628 Type 2 diabetes mellitus with other skin complications; E11.40 Type 2 diabetes mellitus with diabetic neuropathy, unspecified; I25.10 Atherosclerotic heart disease of native coronary artery without angina pectoris; Z95.5 Presence of coronary angioplasty implant and graft; E11.51 Type 2 diabetes mellitus with diabetic peripheral angiopathy without gangrene; Z20.822 Contact with and (suspected) exposure to COVID-19; I87.2 Venous insufficiency (chronic) (peripheral); Z88.5 Allergy status to narcotic agent; Z88.2 Allergy status to sulfonamides; Z88.8 Allergy status to other drugs, medicaments and biological substances; E78.5 Hyperlipidemia, unspecified; G89.29 Other chronic pain; M10.9 Gout, unspecified; Z95.0 Presence of cardiac pacemaker; N40.0 Benign prostatic hyperplasia without lower urinary tract symptoms; E86.0 Dehydration
CPT/HCPCS: 0223U; 36415; 36569; 71045; 80048; 80053; 80202; 82948; 85025; 86140; 87040; 93925; 94660; 94799; 96372; 99251; 99284; J0696; J1815; J1817; J2543; J3370; J7030; J7050; J7799; Q9967

== ENCOUNTER 2022-07-28 11:42 | Inpatient (IN) | payer MEDICARE ==
[~2022-07-28] VITALS: Ht 188 cm; Wt 101.6 kg
[2022-07-28] MEDS ORDERED: ALTEPLASE RECOMBINANT 2 MG/2 ML VIAL IV ONE (13:30)
[2022-07-28 14:41] LABS: BASOPHILS # (AUTO) 0.1 (0.0-0.1); BASOPHILS % 0.7 % (0.0-1.0); EOSINOPHILS # (AUTO) 0.3 (0.0-0.4); EOSINOPHILS % 3.8 % (0.0-6.0); HEMATOCRIT 42.1 % (38.2-49.6); HEMOGLOBIN 13.4 g/dL (14.0-18.0); LYMPHOCYTES # (AUTO) 1.1 (1.0-3.2); LYMPHOCYTES % 14.6 % (18.0-39.1); MEAN CORPUSCULAR HEMOGLOBIN 30.9 pg (28-32); MEAN CORPUSCULAR HGB CONC 31.8 g/dL (31-35); MONOCYTES # (AUTO) 0.6 (0.2-0.8); MONOCYTES % 7.8 % (4.4-11.3); NEUTROPHILS # (AUTO) 5.5 (2.1-6.9); NEUTROPHILS % 72.4 % (38.7-80.0); PLATELET COUNT 230 x10e3/uL (140-360); RED BLOOD COUNT 4.34 x10e6/uL (4.3-5.7); RED CELL DISTRIBUTION WIDTH 12.6 % (11.7-14.4)
[2022-07-28 15:01] LABS: ALBUMIN 3.9 g/dL (3.5-5.0); ALBUMIN/GLOBULIN RATIO 1.3 (0.8-2.0); ANION GAP 15.1 mmol/L (8-16); CREATININE, SERUM 0.92 mg/dL (0.72-1.25); POTASSIUM 4.1 mmol/L (3.5-5.1)
[2022-07-28] MEDS ORDERED: HYDROCODONE/APAP 10MG-325MG TAB PO ONE (15:30)
[2022-07-28] MEDS ORDERED: HYDROCODONE/APAP 10MG-325MG TAB ONE (15:56)
[2022-07-28 16:05] VITALS: BP 161/94
[2022-07-28] MEDS: Vancomycin IV 1 GM in SODIUM CHLORIDE 0.9% 250ML 250 ML IV SCH (17:22)
[2022-07-28] MEDS ORDERED: TORSEMIDE20 MG PO (18:16)
[2022-07-28] MEDS: Morphine 4mg INJECTION 4 MG/ML INJ IV PRN ×2 (18:43→23:10)
[2022-07-28 20:16] VITALS: BP 161/94
[2022-07-28 20:30] VITALS: BP 165/74
[2022-07-28] MEDS: INSULIN GLARGINE 100 UNITS/ML VIAL SQ SCH (21:00)
[2022-07-28] MEDS: FINASTERIDE 5 MG TAB PO SCH (21:16)
[2022-07-28] MEDS: LOSARTAN POTASSIUM 100 MG TAB PO SCH (21:16)
[2022-07-28] MEDS ORDERED: SODIUM CHLORIDE 0.9% 100 ML ONE (21:31)
[2022-07-28] MEDS ORDERED: SODIUM CHLORIDE 0.9% 250ML 250 ML ONE (21:38)
[2022-07-29] VITALS (7 sets, daily range): BP systolic 130–163; BP diastolic 67–79
[2022-07-29] MEDS: Morphine 4mg INJECTION 4 MG/ML INJ IV PRN ×5 (00:24→20:39)
[2022-07-29] MEDS: HYDROCODONE/APAP 5MG-325MG TAB PO PRN ×4 (00:28→22:27)
[2022-07-29] MEDS: Vancomycin IV 1 GM in SODIUM CHLORIDE 0.9% 250ML 250 ML IV SCH ×2 (03:06→15:27)
[2022-07-29] MEDS: AMLODIPINE BESYLATE 5 MG TAB PO SCH (08:52)
[2022-07-29] MEDS: TAMSULOSIN HCL 0.4 MG CAP PO SCH (08:52)
[2022-07-29] MEDS: ASPIRIN 81 MG CHEW TAB PO SCH (08:53)
[2022-07-29] MEDS: MULTIVITAMINS/MINERALS TAB PO SCH (08:53)
[2022-07-29] MEDS: LORATADINE 10 MG TAB PO SCH (08:53)
[2022-07-29] MEDS: ALLOPURINOL 300 MG TAB PO SCH (08:53)
[2022-07-29] MEDS: TORSEMIDE 10 MG TAB PO SCH (08:53)
[2022-07-29] MEDS: GLIPIZIDE 5 MG TAB ER PO SCH (08:53)
[2022-07-29] MEDS: MESALAMINE 400 MG CAP PO SCH ×2 (08:53→17:29)
[2022-07-29] MEDS: METOPROLOL TARTRATE 25 MG TAB PO SCH ×2 (08:54→17:29)
[2022-07-29] MEDS: OMEGA 3 POLYUNSAT FATTY ACIDS 1000 MG SOFTGEL PO SCH (08:54)
[2022-07-29] MEDS: FLUTICASONE PROPIONATE NASAL SPRAY NS SCH (08:58)
[2022-07-29] MEDS ORDERED: DEXTROSE 50% SYRINGE 50 ML IV PRN (10:15)
[2022-07-29] MEDS ORDERED: ACETAMINOPHEN 325 MG TAB PO PRN (10:15)
[2022-07-29] MEDS: INSULIN LISPRO 100 UNIT/1 ML 3ML VIAL SQ SCH ×3 (11:30→21:59)
[2022-07-29] MEDS ORDERED: LIDOCAINE 1% 10 ML MULTIDOSE VIAL IJ ONE (15:15)
[2022-07-29] MEDS: CLOBETASOL 0.05% CREAM 45GMS 1 EA/15 GM TUBE TOP SCH (16:50)
[2022-07-29] MEDS: ENOXAPARIN SOD INJ 40 MG/0.4 ML SYR SC SCH (17:28)
[2022-07-29] MEDS: NON-FORMULARY MEDICATION (Lovastatin 20 MG) PO SCH (21:00)
[2022-07-29] MEDS: ONDANSETRON HCL INJ 2MG/ML 2ML 2 MG/ML VIAL IV PRN (21:50)
[2022-07-29] MEDS: FINASTERIDE 5 MG TAB PO SCH (21:52)
[2022-07-29] MEDS: LOSARTAN POTASSIUM 100 MG TAB PO SCH (21:52)
[2022-07-29] MEDS: INSULIN GLARGINE 100 UNITS/ML VIAL SQ SCH (22:00)
[2022-07-30] MEDS: Morphine 4mg INJECTION 4 MG/ML INJ IV PRN ×5 (00:55→22:06)
[2022-07-30] MEDS: Vancomycin IV 1 GM in SODIUM CHLORIDE 0.9% 250ML 250 ML IV SCH ×2 (02:33→15:11)
[2022-07-30] MEDS: HYDROCODONE/APAP 5MG-325MG TAB PO PRN ×3 (02:34→23:29)
[2022-07-30 07:24] LABS: BASOPHILS # (AUTO) 0.1 (0.0-0.1); BASOPHILS % 0.7 % (0.0-1.0); EOSINOPHILS # (AUTO) 0.3 (0.0-0.4); EOSINOPHILS % 3.4 % (0.0-6.0); HEMATOCRIT 45.1 % (38.2-49.6); HEMOGLOBIN 13.8 g/dL (14.0-18.0); LYMPHOCYTES # (AUTO) 1.4 (1.0-3.2); LYMPHOCYTES % 16.6 % (18.0-39.1); MEAN CORPUSCULAR HGB CONC 30.6 g/dL (31-35); MONOCYTES # (AUTO) 0.9 (0.2-0.8); MONOCYTES % 11.4 % (4.4-11.3); NEUTROPHILS # (AUTO) 5.5 (2.1-6.9); NEUTROPHILS % 67.4 % (38.7-80.0); PLATELET COUNT 222 x10e3/uL (140-360); RED CELL DISTRIBUTION WIDTH 12.8 % (11.7-14.4)
[2022-07-30 07:52] LABS: ALBUMIN 3.8 g/dL (3.5-5.0); ALBUMIN/GLOBULIN RATIO 1.2 (0.8-2.0); ANION GAP 14.7 mmol/L (8-16); CALCIUM 9.1 mg/dL (8.4-10.2); CREATININE, SERUM 1.07 mg/dL (0.72-1.25); MAGNESIUM 1.7 MG/DL (1.3-2.1); POTASSIUM 4.7 mmol/L (3.5-5.1)
[2022-07-30 08:49] VITALS: BP 132/64
[2022-07-30 08:58] VITALS: BP 132/64
[2022-07-30] MEDS: CLOBETASOL 0.05% CREAM 45GMS 1 EA/15 GM TUBE TOP SCH (09:00)
[2022-07-30] MEDS: ONDANSETRON HCL INJ 2MG/ML 2ML 2 MG/ML VIAL IV PRN ×3 (09:19→23:57)
[2022-07-30] MEDS: FLUTICASONE PROPIONATE NASAL SPRAY NS SCH (09:26)
[2022-07-30] MEDS: MULTIVITAMINS/MINERALS TAB PO SCH (09:26)
[2022-07-30] MEDS: MESALAMINE 400 MG CAP PO SCH ×2 (09:27→17:24)
[2022-07-30] MEDS: OMEGA 3 POLYUNSAT FATTY ACIDS 1000 MG SOFTGEL PO SCH (09:27)
[2022-07-30] MEDS: ASPIRIN 81 MG CHEW TAB PO SCH (09:27)
[2022-07-30] MEDS: AMLODIPINE BESYLATE 5 MG TAB PO SCH (09:27)
[2022-07-30] MEDS: DOCUSATE SODIUM 100 MG CAP PO SCH (09:28)
[2022-07-30] MEDS: SENNOSIDES 8.6 MG TAB PO SCH (09:28)
[2022-07-30] MEDS: GLIPIZIDE 5 MG TAB ER PO SCH (09:28)
[2022-07-30] MEDS: METOPROLOL TARTRATE 25 MG TAB PO SCH ×2 (09:28→16:08)
[2022-07-30] MEDS: ALLOPURINOL 300 MG TAB PO SCH (09:28)
[2022-07-30] MEDS: TORSEMIDE 10 MG TAB PO SCH (09:29)
[2022-07-30] MEDS: LORATADINE 10 MG TAB PO SCH (09:29)
[2022-07-30] MEDS: TAMSULOSIN HCL 0.4 MG CAP PO SCH (09:30)
[2022-07-30 12:27] VITALS: BP 98/59
[2022-07-30] MEDS: INSULIN LISPRO 100 UNIT/1 ML 3ML VIAL SQ SCH ×4 (12:28→21:50)
[2022-07-30] MEDS ORDERED: SODIUM CHLORIDE 0.9% 250ML 250 ML ONE (15:55)
[2022-07-30 16:10] VITALS: BP 114/73
[2022-07-30] MEDS: ENOXAPARIN SOD INJ 40 MG/0.4 ML SYR SC SCH (17:24)
[2022-07-30 20:00] VITALS: BP_SYST 153; BP_SYST 157; BP_DIAS 75; BP_DIAS 76
[2022-07-30] MEDS: NON-FORMULARY MEDICATION (Lovastatin 20 MG) PO SCH (21:00)
[2022-07-30] MEDS: LOSARTAN POTASSIUM 100 MG TAB PO SCH (21:42)
[2022-07-30] MEDS: FINASTERIDE 5 MG TAB PO SCH (21:43)
[2022-07-30] MEDS: INSULIN GLARGINE 100 UNITS/ML VIAL SQ SCH (21:50)
[2022-07-31] VITALS (7 sets, daily range): BP systolic 109–137; BP diastolic 63–81
[2022-07-31] MEDS: Vancomycin IV 1 GM in SODIUM CHLORIDE 0.9% 250ML 250 ML IV SCH (01:58)
[2022-07-31] MEDS: Morphine 4mg INJECTION 4 MG/ML INJ IV PRN ×4 (02:04→20:47)
[2022-07-31] MEDS: INSULIN LISPRO 100 UNIT/1 ML 3ML VIAL SQ SCH ×6 (08:30→21:07)
[2022-07-31] MEDS: CLOBETASOL 0.05% CREAM 45GMS 1 EA/15 GM TUBE TOP SCH (09:00)
[2022-07-31] MEDS: HYDROCODONE/APAP 5MG-325MG TAB PO PRN ×4 (09:35→22:24)
[2022-07-31] MEDS: ASPIRIN 81 MG CHEW TAB PO SCH (09:36)
[2022-07-31] MEDS: LORATADINE 10 MG TAB PO SCH (09:37)
[2022-07-31] MEDS: TAMSULOSIN HCL 0.4 MG CAP PO SCH (09:37)
[2022-07-31] MEDS: GLIPIZIDE 5 MG TAB ER PO SCH (09:37)
[2022-07-31] MEDS: DOCUSATE SODIUM 100 MG CAP PO SCH (09:37)
[2022-07-31] MEDS: TORSEMIDE 10 MG TAB PO SCH (09:37)
[2022-07-31] MEDS: MULTIVITAMINS/MINERALS TAB PO SCH (09:38)
[2022-07-31] MEDS: METOPROLOL TARTRATE 25 MG TAB PO SCH ×2 (09:38→16:46)
[2022-07-31] MEDS: AMLODIPINE BESYLATE 5 MG TAB PO SCH (09:38)
[2022-07-31] MEDS: ALLOPURINOL 300 MG TAB PO SCH (09:38)
[2022-07-31] MEDS: SENNOSIDES 8.6 MG TAB PO SCH (09:38)
[2022-07-31] MEDS: OMEGA 3 POLYUNSAT FATTY ACIDS 1000 MG SOFTGEL PO SCH (09:38)
[2022-07-31] MEDS: MESALAMINE 400 MG CAP PO SCH ×2 (09:39→16:58)
[2022-07-31] MEDS: METHYLPREDNISOLONE SOD SUCC 40 MG/ML VIAL 1ML IV SCH ×3 (09:53→21:40)
[2022-07-31] MEDS: FLUTICASONE PROPIONATE NASAL SPRAY NS SCH (09:54)
[2022-07-31] MEDS: ONDANSETRON HCL INJ 2MG/ML 2ML 2 MG/ML VIAL IV PRN (16:46)
[2022-07-31] MEDS: ENOXAPARIN SOD INJ 40 MG/0.4 ML SYR SC SCH (16:47)
[2022-07-31] MEDS: FINASTERIDE 5 MG TAB PO SCH (20:49)
[2022-07-31] MEDS: NON-FORMULARY MEDICATION (Lovastatin 20 MG) PO SCH (21:00)
[2022-07-31] MEDS: LOSARTAN POTASSIUM 100 MG TAB PO SCH (21:02)
[2022-07-31] MEDS: INSULIN GLARGINE 100 UNITS/ML VIAL SQ SCH (21:03)
[2022-08-01] VITALS (8 sets, daily range): BP systolic 105–151; BP diastolic 63–83
[2022-08-01] MEDS: Morphine 4mg INJECTION 4 MG/ML INJ IV PRN ×5 (00:55→20:27)
[2022-08-01] MEDS: HYDROCODONE/APAP 5MG-325MG TAB PO PRN ×2 (02:25→06:28)
[2022-08-01] MEDS: METHYLPREDNISOLONE SOD SUCC 40 MG/ML VIAL 1ML IV SCH ×3 (05:08→22:36)
[2022-08-01 06:14] LABS: BASOPHILS % 0.1 % (0.0-1.0); HEMATOCRIT 41.7 % (38.2-49.6); HEMOGLOBIN 13.3 g/dL (14.0-18.0); LYMPHOCYTES # (AUTO) 0.8 (1.0-3.2); LYMPHOCYTES % 6.4 % (18.0-39.1); MEAN CORPUSCULAR HEMOGLOBIN 30.6 pg (28-32); MEAN CORPUSCULAR HGB CONC 31.9 g/dL (31-35); MEAN CORPUSCULAR VOLUME 96.1 fL (81-99); MONOCYTES # (AUTO) 0.2 (0.2-0.8); MONOCYTES % 1.4 % (4.4-11.3); NEUTROPHILS % 91.5 % (38.7-80.0); PLATELET COUNT 215 x10e3/uL (140-360); RED BLOOD COUNT 4.34 x10e6/uL (4.3-5.7); RED CELL DISTRIBUTION WIDTH 12.1 % (11.7-14.4)
[2022-08-01 06:39] LABS: ANION GAP 15.2 mmol/L (8-16); CALCIUM 9.3 mg/dL (8.4-10.2); CREATININE, SERUM 1.25 mg/dL (0.72-1.25); POTASSIUM 4.2 mmol/L (3.5-5.1)
[2022-08-01] MEDS: INSULIN LISPRO 100 UNIT/1 ML 3ML VIAL SQ SCH ×8 (08:00→20:43)
[2022-08-01] MEDS: DOCUSATE SODIUM 100 MG CAP PO SCH (09:24)
[2022-08-01] MEDS: LORATADINE 10 MG TAB PO SCH (09:24)
[2022-08-01] MEDS: AMLODIPINE BESYLATE 5 MG TAB PO SCH (09:24)
[2022-08-01] MEDS: TORSEMIDE 10 MG TAB PO SCH (09:24)
[2022-08-01] MEDS: GLIPIZIDE 5 MG TAB ER PO SCH (09:24)
[2022-08-01] MEDS: ASPIRIN 81 MG CHEW TAB PO SCH (09:24)
[2022-08-01] MEDS: MULTIVITAMINS/MINERALS TAB PO SCH (09:24)
[2022-08-01] MEDS: MESALAMINE 400 MG CAP PO SCH ×2 (09:25→16:53)
[2022-08-01] MEDS: METOPROLOL TARTRATE 25 MG TAB PO SCH ×2 (09:25→16:54)
[2022-08-01] MEDS: SENNOSIDES 8.6 MG TAB PO SCH (09:25)
[2022-08-01] MEDS: ALLOPURINOL 300 MG TAB PO SCH (09:25)
[2022-08-01] MEDS: OMEGA 3 POLYUNSAT FATTY ACIDS 1000 MG SOFTGEL PO SCH (09:25)
[2022-08-01] MEDS: TAMSULOSIN HCL 0.4 MG CAP PO SCH (09:25)
[2022-08-01] MEDS: ONDANSETRON HCL INJ 2MG/ML 2ML 2 MG/ML VIAL IV PRN (09:26)
[2022-08-01] MEDS: FLUTICASONE PROPIONATE NASAL SPRAY NS SCH (09:29)
[2022-08-01] MEDS: CLOBETASOL 0.05% CREAM 45GMS 1 EA/15 GM TUBE TOP SCH (09:29)
[2022-08-01] MEDS: Vancomycin IV 1 GM in SODIUM CHLORIDE 0.9% 250ML 250 ML IV SCH (09:47)
[2022-08-01] MEDS: ENOXAPARIN SOD INJ 40 MG/0.4 ML SYR SC SCH (16:54)
[2022-08-01] MEDS: ACETAMINOPHEN/CODEINE 300MG - 30MG TAB PO PRN ×2 (18:47→23:36)
[2022-08-01] MEDS: NON-FORMULARY MEDICATION (Lovastatin 20 MG) PO SCH ×2 (20:31→21:00)
[2022-08-01] MEDS: FINASTERIDE 5 MG TAB PO SCH (20:31)
[2022-08-01] MEDS: LOSARTAN POTASSIUM 100 MG TAB PO SCH (20:31)
[2022-08-01] MEDS: INSULIN GLARGINE 100 UNITS/ML VIAL SQ SCH (20:40)
[2022-08-02] VITALS (8 sets, daily range): BP systolic 98–160; BP diastolic 64–87
[2022-08-02] MEDS: Morphine 4mg INJECTION 4 MG/ML INJ IV PRN ×4 (00:59→21:37)
[2022-08-02] MEDS: METHYLPREDNISOLONE SOD SUCC 40 MG/ML VIAL 1ML IV SCH ×3 (05:36→21:36)
[2022-08-02] MEDS: ASPIRIN 81 MG CHEW TAB PO SCH (08:49)
[2022-08-02] MEDS: DOCUSATE SODIUM 100 MG CAP PO SCH (08:50)
[2022-08-02] MEDS: TORSEMIDE 10 MG TAB PO SCH (08:51)
[2022-08-02] MEDS: OMEGA 3 POLYUNSAT FATTY ACIDS 1000 MG SOFTGEL PO SCH (08:51)
[2022-08-02] MEDS: ALLOPURINOL 300 MG TAB PO SCH (08:51)
[2022-08-02] MEDS: TAMSULOSIN HCL 0.4 MG CAP PO SCH (08:52)
[2022-08-02] MEDS: LORATADINE 10 MG TAB PO SCH (08:52)
[2022-08-02] MEDS: GLIPIZIDE 5 MG TAB ER PO SCH (08:52)
[2022-08-02] MEDS: MULTIVITAMINS/MINERALS TAB PO SCH (08:52)
[2022-08-02] MEDS: MESALAMINE 400 MG CAP PO SCH ×2 (08:53→17:32)
[2022-08-02] MEDS: SENNOSIDES 8.6 MG TAB PO SCH (08:56)
[2022-08-02] MEDS: METOPROLOL TARTRATE 25 MG TAB PO SCH ×2 (08:56→17:34)
[2022-08-02] MEDS: AMLODIPINE BESYLATE 5 MG TAB PO SCH (08:56)
[2022-08-02] MEDS: FLUTICASONE PROPIONATE NASAL SPRAY NS SCH (08:57)
[2022-08-02] MEDS: ACETAMINOPHEN/CODEINE 300MG - 30MG TAB PO PRN ×3 (08:58→23:39)
[2022-08-02] MEDS: CLOBETASOL 0.05% CREAM 45GMS 1 EA/15 GM TUBE TOP SCH (09:06)
[2022-08-02] MEDS: Vancomycin IV 1 GM in SODIUM CHLORIDE 0.9% 250ML 250 ML IV SCH (10:00)
[2022-08-02] MEDS: GABAPENTIN 100 MG CAP PO SCH ×3 (11:16→22:00)
[2022-08-02] MEDS: CELECOXIB 100 MG CAP PO SCH ×2 (11:16→17:33)
[2022-08-02] MEDS ORDERED: POLYETHYLENE GLYCOL 3350 17 GM PACK PO ONE (14:30)
[2022-08-02] MEDS: INSULIN LISPRO 100 UNIT/1 ML 3ML VIAL SQ SCH ×7 (15:26→21:56)
[2022-08-02] MEDS: ENOXAPARIN SOD INJ 40 MG/0.4 ML SYR SC SCH (17:33)
[2022-08-02] MEDS: NON-FORMULARY MEDICATION (Lovastatin 20 MG) PO SCH (21:00)
[2022-08-02] MEDS: FINASTERIDE 5 MG TAB PO SCH (21:36)
[2022-08-02] MEDS: LOSARTAN POTASSIUM 100 MG TAB PO SCH (21:36)
[2022-08-02] MEDS: INSULIN GLARGINE 100 UNITS/ML VIAL SQ SCH (21:57)
[2022-08-03 01:55] VITALS: BP 136/76
[2022-08-03] MEDS: Morphine 4mg INJECTION 4 MG/ML INJ IV PRN ×4 (01:58→23:31)
[2022-08-03 05:43] VITALS: BP 113/81
[2022-08-03] MEDS: METHYLPREDNISOLONE SOD SUCC 40 MG/ML VIAL 1ML IV SCH ×3 (05:47→21:50)
[2022-08-03] MEDS: ACETAMINOPHEN/CODEINE 300MG - 30MG TAB PO PRN ×2 (05:47→21:49)
[2022-08-03] MEDS: INSULIN LISPRO 100 UNIT/1 ML 3ML VIAL SQ SCH ×6 (07:30→23:18)
[2022-08-03] MEDS ORDERED: BISACODYL 10 MG SUPP PR PRN (08:30)
[2022-08-03 08:55] VITALS: BP 140/124
[2022-08-03] MEDS: AMLODIPINE BESYLATE 5 MG TAB PO SCH (09:44)
[2022-08-03] MEDS: ASPIRIN 81 MG CHEW TAB PO SCH (09:44)
[2022-08-03] MEDS: MULTIVITAMINS/MINERALS TAB PO SCH (09:45)
[2022-08-03] MEDS: GLIPIZIDE 5 MG TAB ER PO SCH (09:45)
[2022-08-03] MEDS: CELECOXIB 100 MG CAP PO SCH ×2 (09:45→16:50)
[2022-08-03] MEDS: TORSEMIDE 10 MG TAB PO SCH (09:45)
[2022-08-03] MEDS: TAMSULOSIN HCL 0.4 MG CAP PO SCH (09:46)
[2022-08-03] MEDS: SENNOSIDES 8.6 MG TAB PO SCH (09:47)
[2022-08-03] MEDS: ALLOPURINOL 300 MG TAB PO SCH (09:47)
[2022-08-03] MEDS: METOPROLOL TARTRATE 25 MG TAB PO SCH ×2 (09:47→16:51)
[2022-08-03] MEDS: OMEGA 3 POLYUNSAT FATTY ACIDS 1000 MG SOFTGEL PO SCH (09:48)
[2022-08-03] MEDS: MESALAMINE 400 MG CAP PO SCH ×2 (09:48→16:51)
[2022-08-03] MEDS: SENNA-S TABLET PO SCH ×2 (09:48→16:50)
[2022-08-03] MEDS: LORATADINE 10 MG TAB PO SCH (09:49)
[2022-08-03] MEDS: FLUTICASONE PROPIONATE NASAL SPRAY NS SCH (09:49)
[2022-08-03] MEDS: CLOBETASOL 0.05% CREAM 45GMS 1 EA/15 GM TUBE TOP SCH (09:49)
[2022-08-03] MEDS: Vancomycin IV 1 GM in SODIUM CHLORIDE 0.9% 250ML 250 ML IV SCH (09:50)
[2022-08-03] MEDS: GABAPENTIN 100 MG CAP PO SCH ×3 (10:41→21:48)
[2022-08-03] MEDS ORDERED: ONDANSETRON HCL 4 MG ORAL DISINTEGRATING TAB PO PRN (11:00)
[2022-08-03 11:55] LABS: BASOPHILS % 0.1 % (0.0-1.0); HEMATOCRIT 45.1 % (38.2-49.6); HEMOGLOBIN 14.3 g/dL (14.0-18.0); LYMPHOCYTES # (AUTO) 0.4 (1.0-3.2); LYMPHOCYTES % 3.3 % (18.0-39.1); MEAN CORPUSCULAR HEMOGLOBIN 30.7 pg (28-32); MEAN CORPUSCULAR HGB CONC 31.7 g/dL (31-35); MEAN CORPUSCULAR VOLUME 96.8 fL (81-99); MONOCYTES # (AUTO) 0.3 (0.2-0.8); MONOCYTES % 2.6 % (4.4-11.3); NEUTROPHILS # (AUTO) 12.3 (2.1-6.9); NEUTROPHILS % 93.3 % (38.7-80.0); PLATELET COUNT 244 x10e3/uL (140-360); RED BLOOD COUNT 4.66 x10e6/uL (4.3-5.7); RED CELL DISTRIBUTION WIDTH 12.5 % (11.7-14.4)
[2022-08-03 12:14] LABS: ANION GAP 16.5 mmol/L (8-16); CALCIUM 8.9 mg/dL (8.4-10.2); CREATININE, SERUM 1.32 mg/dL (0.72-1.25); POTASSIUM 4.5 mmol/L (3.5-5.1)
[2022-08-03 12:31] VITALS: BP 120/78
[2022-08-03 16:33] VITALS: BP 120/73
[2022-08-03] MEDS: ENOXAPARIN SOD INJ 40 MG/0.4 ML SYR SC SCH (16:52)
[2022-08-03] MEDS: LOSARTAN POTASSIUM 100 MG TAB PO SCH ×2 (16:52→21:51)
[2022-08-03 20:00] VITALS: BP 132/92
[2022-08-03] MEDS: NON-FORMULARY MEDICATION (Lovastatin 20 MG) PO SCH (21:00)
[2022-08-03] MEDS: FINASTERIDE 5 MG TAB PO SCH (22:01)
[2022-08-03] MEDS: INSULIN GLARGINE 100 UNITS/ML VIAL SQ SCH (23:21)
[2022-08-04] VITALS (8 sets, daily range): BP systolic 113–144; BP diastolic 71–91
[2022-08-04] MEDS: Morphine 4mg INJECTION 4 MG/ML INJ IV PRN ×3 (04:27→22:05)
[2022-08-04] MEDS: ACETAMINOPHEN/CODEINE 300MG - 30MG TAB PO PRN ×4 (05:41→23:27)
[2022-08-04] MEDS: METHYLPREDNISOLONE SOD SUCC 40 MG/ML VIAL 1ML IV SCH ×3 (05:42→22:05)
[2022-08-04 06:15] LABS: BASOPHILS % 0.2 % (0.0-1.0); HEMATOCRIT 42.5 % (38.2-49.6); HEMOGLOBIN 14.3 g/dL (14.0-18.0); LYMPHOCYTES # (AUTO) 0.7 (1.0-3.2); LYMPHOCYTES % 5.2 % (18.0-39.1); MEAN CORPUSCULAR HEMOGLOBIN 30.6 pg (28-32); MEAN CORPUSCULAR HGB CONC 33.6 g/dL (31-35); MEAN CORPUSCULAR VOLUME 90.8 fL (81-99); MONOCYTES # (AUTO) 0.6 (0.2-0.8); MONOCYTES % 4.5 % (4.4-11.3); NEUTROPHILS # (AUTO) 11.7 (2.1-6.9); NEUTROPHILS % 88.7 % (38.7-80.0); PLATELET COUNT 224 x10e3/uL (140-360); RED BLOOD COUNT 4.68 x10e6/uL (4.3-5.7); RED CELL DISTRIBUTION WIDTH 12.7 % (11.7-14.4)
[2022-08-04 06:42] LABS: ANION GAP 12.2 mmol/L (8-16); CALCIUM 8.7 mg/dL (8.4-10.2); CREATININE, SERUM 1.19 mg/dL (0.72-1.25); POTASSIUM 4.2 mmol/L (3.5-5.1)
[2022-08-04] MEDS: INSULIN LISPRO 100 UNIT/1 ML 3ML VIAL SQ SCH ×7 (08:00→21:25)
[2022-08-04] MEDS: CELECOXIB 100 MG CAP PO SCH ×2 (09:09→17:55)
[2022-08-04] MEDS: MULTIVITAMINS/MINERALS TAB PO SCH (09:09)
[2022-08-04] MEDS: GABAPENTIN 100 MG CAP PO SCH ×3 (09:09→21:20)
[2022-08-04] MEDS: AMLODIPINE BESYLATE 5 MG TAB PO SCH (09:09)
[2022-08-04] MEDS: GLIPIZIDE 5 MG TAB ER PO SCH (09:09)
[2022-08-04] MEDS: SENNOSIDES 8.6 MG TAB PO SCH (09:10)
[2022-08-04] MEDS: ALLOPURINOL 300 MG TAB PO SCH (09:10)
[2022-08-04] MEDS: TAMSULOSIN HCL 0.4 MG CAP PO SCH (09:10)
[2022-08-04] MEDS: OMEGA 3 POLYUNSAT FATTY ACIDS 1000 MG SOFTGEL PO SCH (09:10)
[2022-08-04] MEDS: MESALAMINE 400 MG CAP PO SCH ×2 (09:10→17:55)
[2022-08-04] MEDS: SENNA-S TABLET PO SCH ×2 (09:10→17:55)
[2022-08-04] MEDS: METOPROLOL TARTRATE 25 MG TAB PO SCH ×2 (09:11→18:00)
[2022-08-04] MEDS: ASPIRIN 81 MG CHEW TAB PO SCH (09:11)
[2022-08-04] MEDS: LORATADINE 10 MG TAB PO SCH (09:12)
[2022-08-04] MEDS: TORSEMIDE 10 MG TAB PO SCH (09:12)
[2022-08-04] MEDS: Vancomycin IV 1 GM in SODIUM CHLORIDE 0.9% 250ML 250 ML IV SCH (09:13)
[2022-08-04] MEDS: CLOBETASOL 0.05% CREAM 45GMS 1 EA/15 GM TUBE TOP SCH (09:15)
[2022-08-04] MEDS: FLUTICASONE PROPIONATE NASAL SPRAY NS SCH (09:15)
[2022-08-04] MEDS: ENOXAPARIN SOD INJ 40 MG/0.4 ML SYR SC SCH (17:15)
[2022-08-04] MEDS: NON-FORMULARY MEDICATION (Lovastatin 20 MG) PO SCH (21:00)
[2022-08-04] MEDS: FINASTERIDE 5 MG TAB PO SCH (21:20)
[2022-08-04] MEDS: INSULIN GLARGINE 100 UNITS/ML VIAL SQ SCH (21:26)
[2022-08-05] VITALS (9 sets, daily range): BP systolic 93–141; BP diastolic 60–90
[2022-08-05] MEDS: Morphine 4mg INJECTION 4 MG/ML INJ IV PRN ×4 (04:06→22:16)
[2022-08-05] MEDS: METHYLPREDNISOLONE SOD SUCC 40 MG/ML VIAL 1ML IV SCH (05:35)
[2022-08-05] MEDS: ACETAMINOPHEN/CODEINE 300MG - 30MG TAB PO PRN ×4 (05:35→23:41)
[2022-08-05 06:17] LABS: BASOPHILS % 0.2 % (0.0-1.0); HEMATOCRIT 43.4 % (38.2-49.6); HEMOGLOBIN 14.1 g/dL (14.0-18.0); LYMPHOCYTES # (AUTO) 0.5 (1.0-3.2); LYMPHOCYTES % 4.6 % (18.0-39.1); MEAN CORPUSCULAR HEMOGLOBIN 30.7 pg (28-32); MEAN CORPUSCULAR HGB CONC 32.5 g/dL (31-35); MEAN CORPUSCULAR VOLUME 94.6 fL (81-99); MONOCYTES # (AUTO) 0.5 (0.2-0.8); MONOCYTES % 4.6 % (4.4-11.3); NEUTROPHILS # (AUTO) 10.2 (2.1-6.9); NEUTROPHILS % 89.5 % (38.7-80.0); PLATELET COUNT 238 x10e3/uL (140-360); RED BLOOD COUNT 4.59 x10e6/uL (4.3-5.7)
[2022-08-05] MEDS: FLUTICASONE PROPIONATE NASAL SPRAY NS SCH (07:56)
[2022-08-05] MEDS: INSULIN LISPRO 100 UNIT/1 ML 3ML VIAL SQ SCH ×6 (08:30→21:00)
[2022-08-05] MEDS: ALLOPURINOL 300 MG TAB PO SCH (08:55)
[2022-08-05] MEDS: SENNA-S TABLET PO SCH ×2 (08:55→16:56)
[2022-08-05] MEDS: SENNOSIDES 8.6 MG TAB PO SCH (08:55)
[2022-08-05] MEDS: GLIPIZIDE 5 MG TAB ER PO SCH (08:59)
[2022-08-05] MEDS: TORSEMIDE 10 MG TAB PO SCH (08:59)
[2022-08-05] MEDS: LORATADINE 10 MG TAB PO SCH (08:59)
[2022-08-05] MEDS: MESALAMINE 400 MG CAP PO SCH ×2 (08:59→16:56)
[2022-08-05] MEDS: GABAPENTIN 100 MG CAP PO SCH ×3 (08:59→21:28)
[2022-08-05] MEDS: CELECOXIB 100 MG CAP PO SCH ×2 (08:59→16:55)
[2022-08-05] MEDS: ASPIRIN 81 MG CHEW TAB PO SCH (08:59)
[2022-08-05] MEDS: METOPROLOL TARTRATE 25 MG TAB PO SCH ×2 (08:59→16:56)
[2022-08-05] MEDS: TAMSULOSIN HCL 0.4 MG CAP PO SCH (08:59)
[2022-08-05] MEDS: MULTIVITAMINS/MINERALS TAB PO SCH (08:59)
[2022-08-05] MEDS: AMLODIPINE BESYLATE 5 MG TAB PO SCH (09:00)
[2022-08-05] MEDS: CLOBETASOL 0.05% CREAM 45GMS 1 EA/15 GM TUBE TOP SCH (09:00)
[2022-08-05] MEDS ORDERED: MAGNESIUM HYDROXIDE 30 ML UDC PO PRN (10:45)
[2022-08-05] MEDS: POLYETHYLENE GLYCOL 3350 17 GM PACK PO SCH ×2 (11:36→16:56)
[2022-08-05] MEDS: Vancomycin IV 1 GM in SODIUM CHLORIDE 0.9% 250ML 250 ML IV SCH (11:36)
[2022-08-05] MEDS: OMEGA 3 POLYUNSAT FATTY ACIDS 1000 MG SOFTGEL PO SCH (11:57)
[2022-08-05] MEDS: INSULIN GLARGINE 100 UNITS/ML VIAL SQ SCH (20:51)
[2022-08-05] MEDS: NON-FORMULARY MEDICATION (Lovastatin 20 MG) PO SCH (21:00)
[2022-08-05] MEDS: LOSARTAN POTASSIUM 100 MG TAB PO SCH (21:28)
[2022-08-05] MEDS: FINASTERIDE 5 MG TAB PO SCH (21:28)
[2022-08-06 00:51] VITALS: BP 121/80
[2022-08-06 06:24] LABS: ANION GAP 15.3 mmol/L (8-16); CALCIUM 8.4 mg/dL (8.4-10.2); CREATININE, SERUM 1.16 mg/dL (0.72-1.25); POTASSIUM 4.3 mmol/L (3.5-5.1)
[2022-08-06] MEDS: Morphine 4mg INJECTION 4 MG/ML INJ IV PRN ×4 (07:35→23:59)
[2022-08-06 08:10] VITALS: BP 150/88
[2022-08-06] MEDS: INSULIN LISPRO 100 UNIT/1 ML 3ML VIAL SQ SCH ×7 (08:30→20:38)
[2022-08-06] MEDS: MESALAMINE 400 MG CAP PO SCH ×2 (08:53→17:23)
[2022-08-06] MEDS: Vancomycin IV 1 GM in SODIUM CHLORIDE 0.9% 250ML 250 ML IV SCH (08:53)
[2022-08-06] MEDS: OMEGA 3 POLYUNSAT FATTY ACIDS 1000 MG SOFTGEL PO SCH (08:54)
[2022-08-06] MEDS: CELECOXIB 100 MG CAP PO SCH ×2 (08:54→17:23)
[2022-08-06] MEDS: MULTIVITAMINS/MINERALS TAB PO SCH (08:54)
[2022-08-06] MEDS: TORSEMIDE 10 MG TAB PO SCH (08:54)
[2022-08-06] MEDS: LORATADINE 10 MG TAB PO SCH (08:54)
[2022-08-06] MEDS: ALLOPURINOL 300 MG TAB PO SCH (08:54)
[2022-08-06] MEDS: ASPIRIN 81 MG CHEW TAB PO SCH (08:54)
[2022-08-06] MEDS: SENNA-S TABLET PO SCH ×2 (08:54→17:23)
[2022-08-06] MEDS: GLIPIZIDE 5 MG TAB ER PO SCH (08:54)
[2022-08-06] MEDS: PREDNISONE 20 MG TAB PO SCH (08:55)
[2022-08-06] MEDS: TAMSULOSIN HCL 0.4 MG CAP PO SCH (08:55)
[2022-08-06] MEDS: POLYETHYLENE GLYCOL 3350 17 GM PACK PO SCH ×2 (08:55→17:00)
[2022-08-06] MEDS: AMLODIPINE BESYLATE 5 MG TAB PO SCH (08:55)
[2022-08-06] MEDS: METOPROLOL TARTRATE 25 MG TAB PO SCH ×2 (08:55→17:23)
[2022-08-06] MEDS: FLUTICASONE PROPIONATE NASAL SPRAY NS SCH (08:56)
[2022-08-06] MEDS: GABAPENTIN 100 MG CAP PO SCH ×3 (09:11→20:16)
[2022-08-06] MEDS: ACETAMINOPHEN/CODEINE 300MG - 30MG TAB PO PRN ×2 (09:11→22:09)
[2022-08-06 11:30] VITALS: BP 150/88
[2022-08-06 11:40] VITALS: BP 100/66
[2022-08-06] MEDS: CLOBETASOL 0.05% CREAM 45GMS 1 EA/15 GM TUBE TOP SCH (12:00)
[2022-08-06 16:10] VITALS: BP 126/72
[2022-08-06] MEDS: NON-FORMULARY MEDICATION (Lovastatin 20 MG) PO SCH (19:25)
[2022-08-06] MEDS: FINASTERIDE 5 MG TAB PO SCH (20:14)
[2022-08-06] MEDS: LOSARTAN POTASSIUM 100 MG TAB PO SCH (20:16)
[2022-08-06] MEDS: INSULIN GLARGINE 100 UNITS/ML VIAL SQ SCH (20:39)
[2022-08-06 21:00] VITALS: BP 109/80
[2022-08-07 00:51] VITALS: BP 122/76
[2022-08-07] MEDS: ACETAMINOPHEN/CODEINE 300MG - 30MG TAB PO PRN ×5 (02:03→23:15)
[2022-08-07] MEDS: INSULIN LISPRO 100 UNIT/1 ML 3ML VIAL SQ SCH ×7 (07:30→21:47)
[2022-08-07 08:40] VITALS: BP 122/76
[2022-08-07] MEDS: Morphine 4mg INJECTION 4 MG/ML INJ IV PRN ×4 (08:42→21:33)
[2022-08-07] MEDS: GLIPIZIDE 5 MG TAB ER PO SCH (08:47)
[2022-08-07] MEDS: TAMSULOSIN HCL 0.4 MG CAP PO SCH (08:47)
[2022-08-07] MEDS: PREDNISONE 20 MG TAB PO SCH (08:48)
[2022-08-07] MEDS: ASPIRIN 81 MG CHEW TAB PO SCH (08:48)
[2022-08-07] MEDS: MULTIVITAMINS/MINERALS TAB PO SCH (08:48)
[2022-08-07] MEDS: LORATADINE 10 MG TAB PO SCH (08:48)
[2022-08-07] MEDS: CELECOXIB 100 MG CAP PO SCH ×2 (08:48→17:23)
[2022-08-07] MEDS: AMLODIPINE BESYLATE 5 MG TAB PO SCH (08:49)
[2022-08-07] MEDS: SENNA-S TABLET PO SCH ×2 (08:49→17:23)
[2022-08-07] MEDS: TORSEMIDE 10 MG TAB PO SCH (08:49)
[2022-08-07] MEDS: METOPROLOL TARTRATE 25 MG TAB PO SCH ×2 (08:50→17:00)
[2022-08-07] MEDS: LOSARTAN POTASSIUM 100 MG TAB PO SCH (08:51)
[2022-08-07] MEDS: ALLOPURINOL 300 MG TAB PO SCH (08:51)
[2022-08-07] MEDS: GABAPENTIN 100 MG CAP PO SCH ×3 (08:51→21:31)
[2022-08-07] MEDS: FLUTICASONE PROPIONATE NASAL SPRAY NS SCH (08:53)
[2022-08-07 08:54] VITALS: BP 106/62
[2022-08-07] MEDS: MESALAMINE 400 MG CAP PO SCH ×2 (08:54→17:26)
[2022-08-07] MEDS: CLOBETASOL 0.05% CREAM 45GMS 1 EA/15 GM TUBE TOP SCH (09:00)
[2022-08-07] MEDS: Vancomycin IV 1 GM in SODIUM CHLORIDE 0.9% 250ML 250 ML IV SCH (10:00)
[2022-08-07] MEDS: OMEGA 3 POLYUNSAT FATTY ACIDS 1000 MG SOFTGEL PO SCH (10:45)
[2022-08-07] MEDS: POLYETHYLENE GLYCOL 3350 17 GM PACK PO SCH ×2 (10:45→17:00)
[2022-08-07 12:29] VITALS: BP 116/81
[2022-08-07] MEDS: ENOXAPARIN SOD INJ 40 MG/0.4 ML SYR SC SCH (17:26)
[2022-08-07] MEDS: NON-FORMULARY MEDICATION (Lovastatin 20 MG) PO SCH (21:00)
[2022-08-07] MEDS: FINASTERIDE 5 MG TAB PO SCH (21:31)
[2022-08-07] MEDS: INSULIN GLARGINE 100 UNITS/ML VIAL SQ SCH (21:47)
[2022-08-07 22:57] VITALS: BP 131/8
[2022-08-08] MEDS: Morphine 4mg INJECTION 4 MG/ML INJ IV PRN ×3 (01:36→14:10)
[2022-08-08 05:55] LABS: BASOPHILS % 0.1 % (0.0-1.0); EOSINOPHILS # (AUTO) 0.1 (0.0-0.4); EOSINOPHILS % 0.3 % (0.0-6.0); HEMATOCRIT 43.6 % (38.2-49.6); HEMOGLOBIN 13.8 g/dL (14.0-18.0); LYMPHOCYTES # (AUTO) 1.4 (1.0-3.2); LYMPHOCYTES % 8.3 % (18.0-39.1); MEAN CORPUSCULAR HEMOGLOBIN 30.5 pg (28-32); MEAN CORPUSCULAR HGB CONC 31.7 g/dL (31-35); MEAN CORPUSCULAR VOLUME 96.2 fL (81-99); MONOCYTES # (AUTO) 1.3 (0.2-0.8); MONOCYTES % 7.7 % (4.4-11.3); NEUTROPHILS # (AUTO) 13.6 (2.1-6.9); NEUTROPHILS % 82.2 % (38.7-80.0); PLATELET COUNT 206 x10e3/uL (140-360); RED BLOOD COUNT 4.53 x10e6/uL (4.3-5.7); RED CELL DISTRIBUTION WIDTH 12.8 % (11.7-14.4)
[2022-08-08 06:44] LABS: ANION GAP 15.2 mmol/L (8-16); CALCIUM 8.6 mg/dL (8.4-10.2); CREATININE, SERUM 1.19 mg/dL (0.72-1.25); POTASSIUM 4.2 mmol/L (3.5-5.1)
[2022-08-08 08:00] VITALS: BP 131/8
[2022-08-08 08:32] VITALS: BP 137/95
[2022-08-08] MEDS: ACETAMINOPHEN/CODEINE 300MG - 30MG TAB PO PRN ×2 (08:38→13:17)
[2022-08-08] MEDS: CELECOXIB 100 MG CAP PO SCH (08:39)
[2022-08-08] MEDS: MULTIVITAMINS/MINERALS TAB PO SCH (08:39)
[2022-08-08] MEDS: TORSEMIDE 10 MG TAB PO SCH (08:40)
[2022-08-08] MEDS: MESALAMINE 400 MG CAP PO SCH ×2 (08:40→17:00)
[2022-08-08] MEDS: ASPIRIN 81 MG CHEW TAB PO SCH (08:40)
[2022-08-08] MEDS: ALLOPURINOL 300 MG TAB PO SCH (08:41)
[2022-08-08] MEDS: METOPROLOL TARTRATE 25 MG TAB PO SCH ×2 (08:41→18:07)
[2022-08-08] MEDS: PREDNISONE 20 MG TAB PO SCH (08:41)
[2022-08-08] MEDS: AMLODIPINE BESYLATE 5 MG TAB PO SCH (08:42)
[2022-08-08] MEDS: TAMSULOSIN HCL 0.4 MG CAP PO SCH (08:42)
[2022-08-08] MEDS: GLIPIZIDE 5 MG TAB ER PO SCH (08:42)
[2022-08-08] MEDS: OMEGA 3 POLYUNSAT FATTY ACIDS 1000 MG SOFTGEL PO SCH (08:43)
[2022-08-08] MEDS: LORATADINE 10 MG TAB PO SCH (08:43)
[2022-08-08] MEDS: SENNA-S TABLET PO SCH ×2 (08:43→17:00)
[2022-08-08] MEDS: GABAPENTIN 100 MG CAP PO SCH (08:45)
[2022-08-08] MEDS: POLYETHYLENE GLYCOL 3350 17 GM PACK PO SCH ×2 (08:45→17:00)
[2022-08-08] MEDS: FLUTICASONE PROPIONATE NASAL SPRAY NS SCH (09:00)
[2022-08-08] MEDS: CLOBETASOL 0.05% CREAM 45GMS 1 EA/15 GM TUBE TOP SCH (09:00)
[2022-08-08] MEDS: INSULIN LISPRO 100 UNIT/1 ML 3ML VIAL SQ SCH ×6 (09:01→16:30)
[2022-08-08 12:37] VITALS: BP 138/105
[2022-08-08] MEDS: Vancomycin IV 1 GM in SODIUM CHLORIDE 0.9% 250ML 250 ML IV SCH (13:06)
[2022-08-08] MEDS ORDERED: GABAPENTIN 300 MG CAP PO SCH (15:00)
[2022-08-08] MEDS ORDERED: ACETAMINOPHEN/CODEINE 300MG - 30MG TAB PO PRN (15:30)
[2022-08-08] MEDS ORDERED: Morphine 4mg INJECTION 4 MG/ML INJ IV PRN (15:30)
[2022-08-08] MEDS ORDERED: CELECOXIB 100 MG CAP PO SCH (17:00)
[2022-08-08] MEDS: ENOXAPARIN SOD INJ 40 MG/0.4 ML SYR SC SCH (17:00)
== END 2022-08-08 19:00 | DRG 300 ==
LOC: ER 12:14 → ERHOLD 13:20 → MED/SURG2 15:51
PROVIDERS: ADMIT Internal Medicine; ATTEND Internal Medicine
PROC: 0HBNXZX Excision of Left Foot Skin, External Approach, Diagnostic (ICD-10-PCS; principal; 2022-07-30)
PROC: 02HV33Z Insertion of Infusion Device into Superior Vena Cava, Percutaneous Approach (ICD-10-PCS; 2022-07-30)
DX: E11.52 Type 2 diabetes mellitus with diabetic peripheral angiopathy with gangrene (principal); I96 Gangrene, not elsewhere classified; K51.90 Ulcerative colitis, unspecified, without complications; L97.309 Non-pressure chronic ulcer of unspecified ankle with unspecified severity; M86.8X7 Other osteomyelitis, ankle and foot; L03.116 Cellulitis of left lower limb; E11.628 Type 2 diabetes mellitus with other skin complications; E11.622 Type 2 diabetes mellitus with other skin ulcer; I10 Essential (primary) hypertension; E11.42 Type 2 diabetes mellitus with diabetic polyneuropathy; I25.10 Atherosclerotic heart disease of native coronary artery without angina pectoris; N40.0 Benign prostatic hyperplasia without lower urinary tract symptoms; Z88.5 Allergy status to narcotic agent; Z88.2 Allergy status to sulfonamides; Z88.8 Allergy status to other drugs, medicaments and biological substances; Z79.4 Long term (current) use of insulin; E11.69 Type 2 diabetes mellitus with other specified complication; I87.2 Venous insufficiency (chronic) (peripheral); Z20.822 Contact with and (suspected) exposure to COVID-19; E66.9 Obesity, unspecified; Z68.28 Body mass index [BMI] 28.0-28.9, adult; G47.33 Obstructive sleep apnea (adult) (pediatric)
CPT/HCPCS: 0223U; 36415; 71045; 80048; 80053; 80202; 82948; 83036; 83735; 85025; 85651; 88304; 88312; 94660; 94799; 96372; 99284; J1650; J1815; J2270; J2405; J2920; J2997; J3370; J7050; J7512